=== PATIENT | male | born 1965 | race Caucasian/White ===

== ENCOUNTER 2017-07-26 10:39 | Inpatient (IN) | payer OTHER, BC ==
[2017-07-26 10:53] VITALS: BMI 24.3
--- NOTE | 2017-07-26 11:14 | PDOC ---
History of Present Illness - General Chief Complaint: Blood Transfusion Stated Complaint: TRANSFUSION Time Seen by Provider: 07/26/17 11:05 History Source: Patient, EMS, [facility] Records Exam Limitations: No Limitations - History of Present Illness Initial Comments: This is a 52 YOM with h/o ESRD (HD MWF without missed appointments lately), A- fib and heart valve replacement with mechanical valve, coumadin use, CAD, bilateral hip fractures and left knee injury several months ago who was BIBA after his SNF called for Hgb of 6 for blood transfusion. The patient himself states that nothing feels new today other than diffuse itchiness, but that he "always feels like crap" and has continued unchanged tiredness, swollen legs, and constipation. He denies any new rectal bleeding, nausea, vomiting, headache , dizziness, shakiness, confusion or difficulty thinking, muscle cramps, or other symptoms. Past History - Past Medical History Allergies/Adverse Reactions: Allergies Allergy/AdvReac Type Severity Reaction Status Date / Time cinacalcet HCl Allergy Verified 07/26/17 10:53 [From Sensipar] Home Medications: Ambulatory Orders Amiodarone HCl [Cordarone -] 200 mg PO DAILY 07/26/17 Aspirin [ASA -] 81 mg PO DAILY 07/26/17 Bacitracin - [Bacitracin Topical Ointment -] 1 applic TP DAILY 07/26/17 Bupropion HCl [Bupropion HCl Sr] 150 mg PO BID 07/26/17 Calcium Acetate 667 mg PO TID 07/26/17 Clonazepam [KlonoPIN] 0.5 mg PO HS 07/26/17 Docusate Sodium [Colace -] 100 mg PO DAILY 07/26/17 Ergocalciferol (Vitamin D2) [Vitamin D2] 50,000 unit PO WEEKLY 07/26/17 Famotidine [Pepcid] 20 mg PO DAILY 07/26/17 Gabapentin 125 mg PO TID 07/26/17 Methylnaltrexone [place] [Relistor] 12 mg SQ DAILY PRN 07/26/17 Metoprolol Succinate [Toprol Xl -] 25 mg PO DAILY 07/26/17 Midodrine HCl 5 mg PO TID 07/26/17 Morphine Sulfate 15 mg PO Q8H 07/26/17 Na Phos,M-B/Na Phos,Di-Ba [Enema Vsmrx-Nw-Jav] 133 ml RC DAILY PRN 07/26/17 Prednisone [Deltasone -] 5 mg PO DAILY 07/26/17 Warfarin Sodium [Coumadin] 1 mg PO DAILY 07/26/17 Cardiac Disorders: Yes (afib) COPD: No Psychiatric Problems: Yes - Suicide/Smoking/Psychosocial Hx Smoking History: Unknown if ever smoked Review of Systems - Review of Systems Constitutional: Yes: Malaise, Weakness. No: Chills, Fever, Unexplained wgt Loss HEENTM: No: Nose Congestion, Throat Pain Respiratory: No: Cough, Shortness of Breath, Hemoptysis Cardiac (ROS): No: Chest Pain, Palpitations ABD/GI: Yes: Constipated. No: Diarrhea, Nausea, Vomiting : No: Burning, Dysuria Musculoskeletal: No: Back Pain, Neck Pain Integumentary: Yes: Other (itching). No: Bruising, Rash Neurological: No: Headache, Numbness, Tingling, Weakness, Dizziness Endocrine: No: Unexplained Weight Gain, Unexplained Weight Loss *Physical Exam - Vital Signs Last Vital Signs Temp Pulse Resp BP Pulse Ox 98.2 F 77 18 124/74 99 07/26/17 10:50 07/26/17 10:50 07/26/17 10:50 07/26/17 10:50 07/26/17 10:50 - Physical Exam General Appearance: Yes: Other (very pale and chronically ill-appearing, bilateral legs splinted/immobilized with foam splint, appears and sounds a bit drowsy (states recently got morning dose of morphine), frequently scratching BUE and chest wall stating he feels itchy, ). 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 negative: Scleral Icterus (R), Scleral Icterus (L), Nasal Congestion Neck: positive: Trachea midline, Supple. negative: Tender, Rigid Respiratory/Chest: positive: Lungs Clear, Normal Breath Sounds, Paradoxal Breathing (3+ pitting edema BLE extending up to abdomen). negative: Respiratory Distress, Crackles, Rhonchi, Stridor, Wheezing Cardiovascular: positive: Regular Rhythm, Regular Rate, Edema, JVD (marked), Other (AV fistula to LUE with good bruit and thrill). negative: Murmur Gastrointestinal/Abdominal: positive: Normal Bowel Sounds, Soft, Organomegaly ( liver edge approximately 8 cm inferior to costal margin). negative: Tender, Pulsatile Mass, Guarding Musculoskeletal: positive: Normal Inspection. negative: Decreased Range of Motion, Vertebral Tenderness Extremity: positive: Normal Capillary Refill, Normal Inspection, Normal Range of Motion, Swelling. negative: Tender, Cyanosis Integumentary: positive: Normal Color, Dry, Warm, Other (scattered mild excoriations apparently from itching). negative: Erythema, Rash, Bruising Neurologic: positive: catering server II-XII NML intact, Fully Oriented, Alert, Normal Mood/ Affect, Normal Response, Motor Strength 5/5 Heart Score/ECG Review #1 ECG reviewed & interpreted by me at: 11:50 NSR, rate of 75, RBBB, anterior t-wave inversions ED Treatment Course - LABORATORY CBC & Chemistry Diagram: 07/28/17 17:10 07/28/17 05:42 Medical Decision Making - Medical Decision Making 52 YOM with h/o ESRD on HD MWF without missed appointments lately, on coumadin for A-fib and mech. valve. BIBA from SNF for Hgb of 6 in setting of multiple transfusions with last one "very recently." Has been seen at [facility] in the past. On exam vitals wnl appears a bit drowsy and very pale, actively scratching w/ excoriations. Marked JVD, 3+ pitting edema BLE, AV fistula LUE with good bruit and thrill, hepatomegaly. The patient needs dialysis and transfusion, requires admission at least to observation. 07/26/17 13:15 Pt's labs result with Hgb 6.5, INR 1.89, Called Bethany Hurtado's office; rep states Dr. Lagunas is on for Dr. Hurtado. Message sent from rep to Dr. Lagunas. 07/26/17 13:34 Have spoken with Mayda Lagunas, patient admitted to IP Med/Surg. Spoke with Dr. Potts who recommends transfusing now and HD concurrently He comes to see the patient in the ED. Packed RBCs ordered and patient is transferred to inpatient with emergent HD. *DC/Admit/Observation/Transfer Diagnosis at time of Disposition: End stage kidney disease Anemia Qualifiers: Anemia type: unspecified type Qualified Code(s): D64.9 - Anemia, unspecified - Discharge Dispostion Condition at time of disposition: Guarded Admit: Yes - Referrals - Patient Instructions - Post Discharge Activity
[2017-07-26] MEDS ORDERED: PROCHLORPERAZINE INJECTION 10 MG/2 ML VIAL ONE (11:51)
[2017-07-26 12:05] LABS: BASOPHIL 0.7 % (0-2.0); EOSINOPHIL 8.5 % (0-4.5); MCH 31.5 pg (25.7-33.7); MCHC 32.1 g/dl (32.0-35.9); MEAN CELL VOLUME 98.1 fl (80-96); MEAN PLT VOLUME 7.3 fl (7.5-11.1); NEUTROPHILS 67.4 % (42.8-82.8); PLATELET COUNT 383 K/MM3 (134-434); RDW 18.7 % (11.9-15.9); WHITE BLOOD COUNT 8.8 K/mm3 (4.0-10.0)
[2017-07-26 12:19] LABS: ALBUMIN 2.3 g/dl (3.4-5.0); ALK PHOS 288 U/L (45-117); ANION GAP 8 (8-16); BILIRUBIN,TOTAL 0.7 mg/dL (0.2-1.0); CALCIUM 8.4 mg/dL (8.5-10.1); CO2 32 mmol/L (21-32); CREATININE 5.6 mg/dL (0.7-1.3); GLUCOSE,RANDOM 95 mg/dL (74-106); MAGNESIUM 2.2 mg/dL (1.8-2.4); PHOSPHOROUS 4.6 mg/dL (2.5-4.9); SGOT/AST 24 U/L (15-37); SGPT/ALT 10 U/L (12-78); TOT PROT 5.9 g/dl (6.4-8.2)
--- NOTE | 2017-07-26 12:29 | PDOC ---
Attending Attestation - Resident Resident Name: LinYuridia - ED Attending Attestation I have performed the following: I have examined & evaluated the patient, The case was reviewed & discussed with the resident, I agree w/resident's findings & plan - HPI HPI: 07/26/17 12:27 Patient with history of end-stage renal disease on hemodialysis with chronic edema, last dialysis was on Saturday. Patient presents from the longterm with recent labs showing a hemoglobin of 6.0 with request for evaluation for possible transfusion. Patient denies shortness of breath at rest. He recently had hip surgery. - Physicial Exam PE: 07/26/17 12:27 Lungs are clear bilaterally. Heart is regular rhythm with mechanical heart valve sounds and a systolic murmur. Abdomen is softly distended. There is significant edema in the bilateral flanks. There is significant edema in the thighs. - Medical Decision Making 07/26/17 12:28 Patient presents with anemia by history, repeat labs are pending. He also has signs of volume overload with right sided heart failure and leg as well as flank and back edema. Even his end-stage renal disease and no urine output, he will require dialysis for transfusion. Plan is to reconfirm his low hemoglobin , and then to admit him for hemodialysis with transfusion during dialysis.
[2017-07-26 12:54] LABS: INR 1.89 (0.82-1.09); PROTHROMBIN TIME (PATIENT) 21.4 SEC (9.98-11.88)
[2017-07-26 12:57] LABS: ACTIVATED PTT 38.6 SECONDS (26.9-34.4)
--- NOTE | 2017-07-26 14:41 | CON.NEP ---
Consult Consult Specialty:: nephrology Reason for Consultation:: ESRD/HD - History of Present Illness Chief Complaint: weakness/lethargy History of Present Illness: The pt is a 52 year old male BIBA from [facility] with a PMH of ESRD, on hemodialysis m -w-f, renal cell carcinoma, right kidney transplant, A.Fib, heart valves replacement, hip surgery on left side 3 weeks ago that was caused by injury/fall - [facility]. We were evaluate the pt who was found to have anemia with Hgb of 6.5 and HD. He is feeling "sleepy" today and is complaining of left hip pain that is present since his surgery. He denies chest pain, SOB, palpitations. He denies abdominal pain, bleeding, headache, vision problems, melena. The pt is a poor historian. - History Source History Provided By: Patient Limitations to Obtaining History: Poor Historian - Past Medical History Cardio/Vascular: Yes: AFIB, CAD, HTN, Hyperlipdemia Renal/: Yes: Hemodialysis - Past Surgical History Past Surgical History: Yes: AV Fistula/Graft, Kidney Transplant, Valve Replacement - Alcohol/Substance Use Hx Alcohol Use: No - Smoking History Smoking history: Former smoker Have you smoked in the past 12 months: No - Social History History of Recent Travel: No Home Medications - Allergies Allergies/Adverse Reactions: Allergies Allergy/AdvReac Type Severity Reaction Status Date / Time cinacalcet HCl Allergy Verified 07/26/17 10:53 [From Sensipar] - Home Medications Home Medications: Ambulatory Orders Amiodarone HCl [Cordarone -] 200 mg PO DAILY 07/26/17 Aspirin [ASA -] 81 mg PO DAILY 07/26/17 Bacitracin - [Bacitracin Topical Ointment -] 1 applic TP DAILY 07/26/17 Bupropion HCl [Bupropion HCl Sr] 150 mg PO BID 07/26/17 Calcium Acetate 667 mg PO TID 07/26/17 Clonazepam [KlonoPIN] 0.5 mg PO HS 07/26/17 Docusate Sodium [Colace -] 100 mg PO DAILY 07/26/17 Ergocalciferol (Vitamin D2) [Vitamin D2] 50,000 unit PO WEEKLY 07/26/17 Famotidine [Pepcid] 20 mg PO DAILY 07/26/17 Gabapentin 125 mg PO TID 07/26/17 Methylnaltrexone [place] [Relistor] 12 mg SQ DAILY PRN 07/26/17 Metoprolol Succinate [Toprol Xl -] 25 mg PO DAILY 07/26/17 Midodrine HCl 5 mg PO TID 07/26/17 Morphine Sulfate 15 mg PO Q8H 07/26/17 Na Phos,M-B/Na Phos,Di-Ba [Enema Zycrt-Lq-Nyg] 133 ml RC DAILY PRN 07/26/17 Prednisone [Deltasone -] 5 mg PO DAILY 07/26/17 Warfarin Sodium [Coumadin] 1 mg PO DAILY 07/26/17 Family Disease History - Family Disease History Family History: Unable to Obtain Review of Systems - Review of Systems Constitutional: reports: Lethargy, Weakness Eyes: reports: No Symptoms HENT: reports: No Symptoms Neck: reports: No Symptoms Cardiovascular: reports: No Symptoms Respiratory: reports: No Symptoms Gastrointestinal: reports: No Symptoms Genitourinary: reports: No Symptoms Musculoskeletal: reports: Joint Pain (left hip) Neurological: reports: No Symptoms Endocrine: reports: No Symptoms Hematology/Lymphatic: reports: No Symptoms, Other Psychiatric: reports: No Symptoms Nephrology Consult - Height Height: 5 ft 8 in - Weight Weight: 160 lb - BMI Body Mass Index (BMI): 24.3 - Lab Results CBC,BMP: CBC, BMP 07/26/17 11:30 07/26/17 11:30 Anion Gap: Anion Gap Anion Gap 8 (8-16) 07/26/17 11:30 - Physical Examination Vital Signs: Vital Signs Temperature 98.2 F 07/26/17 10:50 Pulse Rate 77 07/26/17 10:50 Respiratory Rate 18 07/26/17 10:50 Blood Pressure 124/74 07/26/17 10:50 O2 Sat by Pulse Oximetry (%) 99 07/26/17 10:50 Constitutional: Yes: Well Nourished, No Distress, Calm Eyes: Yes: WNL, Conjunctiva Clear, EOM Intact HENT: Yes: WNL, Atraumatic, Normocephalic Neck: Yes: WNL, Supple, Trachea Midline Cardiovascular: Yes: WNL, Regular Rate and Rhythm. No: JVD, Gallop, Rub Respiratory: Yes: WNL, Regular, CTA Bilaterally Gastrointestinal: Yes: WNL, Normal Bowel Sounds, Soft, Distention, Palpable Mass (pubic area, kidney transplant). No: Abdomen, Obese, Tenderness, Tenderness, Rebound Renal/: Yes: WNL. No: Bladder Distention, CVA Tenderness - Left, CVA Tenderness - Right Access for Hemodialysis: AV Fistula (left upper extremity) Musculoskeletal: Yes: Other (joint pain in left hip and externally rotates lower extremities, able to move toes bilaterally, refused to check ROM) Extremities: Yes: External Rotation. No: Cyanosis Edema: LUE: Trace, RUE: Trace, LLE: 1+, RLE: 1+ Peripheral Pulses WNL: Yes Neurological: Yes: WNL, Alert, Oriented, Lethargy. No: Confusion, Dysarthria, Facial Droop Psychiatric: Yes: WNL, Alert, Oriented Problem List - Problems (1) A-fib Code(s): I48.91 - UNSPECIFIED ATRIAL FIBRILLATION (2) Heart valve replaced Code(s): Z95.2 - PRESENCE OF PROSTHETIC HEART VALVE (3) Renal transplant, status post Code(s): Z94.0 - KIDNEY TRANSPLANT STATUS (4) Anemia Code(s): D64.9 - ANEMIA, UNSPECIFIED (5) End stage kidney disease Code(s): N18.6 - END STAGE RENAL DISEASE Assessment/Plan 52 year old man with multiple comorbidities, on HD , found to have anemia. 1ESRD on HD 2Anemia 3A.Fib 4renal transplant 5HTN 6hyperlipidemia 7hip replacement 8renal cell carcinoma 9heart valve replacement 1the pt will obtain HD today, 3.5 hrs, will monitor his CMP tomorrow 2will transfuse the pt while getting HD, will obtain iron studies and monitor CBC. We also ordered CT abdomen/pevis/ head, FOBT to r/o bleeding since he is on Eliquis 3A.Fib-cont med 4not working 5cont meds 6cont meds 7pain management
--- NOTE | 2017-07-26 14:55 | PN ---
Teaching Attending Note Name of Resident: Sydnee Calvillo (Nephrology) ATTENDING PHYSICIAN STATEMENT I saw and evaluated the patient. I reviewed the resident's note and discussed the case with the resident. I agree with the resident's findings and plan as documented. Nephrology Consult Pt is a 52 year old male with pmhx of ESRD on HD MWF, a-fib, and is s/p hip replacement. He was sent in from the [facility] for a HG of 6. He denies chest pain or shortness of breath. He does complain of increase edema. He is due for HD today. He denies blood in the stool. pmhx esrd a fib pshx hip repair avf social hx neg ros hip pain family hx non contrib allergies cinacalcet Current Medications Generic Name Dose Route Start Last Admin Trade Name Freq PRN Reason Stop Dose Admin Epoetin Rudolph 6,000 units 07/26/17 14:01 Epogen - IVPUSH 07/26/17 14:02 ONCE ONE Last Vital Signs Temp Pulse Resp BP Pulse Ox 98.2 F 77 18 124/74 99 07/26/17 10:50 07/26/17 10:50 07/26/17 10:50 07/26/17 10:50 07/26/17 10:50 Laboratory Tests 07/26/17 07/26/17 07/26/17 11:30 11:30 11:30 WBC 8.8 Hgb 6.5 L* Plt Count 383 PT with INR 21.40 H INR 1.89 H PTT (Actin FS) 38.6 H Sodium 138 Potassium 4.0 Chloride 98 Carbon Dioxide 32 Anion Gap 8 BUN 30 H Creatinine 5.6 H cxr pleural effusion with congestion cardio s1s2 pulm scattered rhonchi GI soft, non tender ext edema and hip pain neuro awake ext left arm av fistula with thrill and bruit Impression 1. ESRD 2. anemia 3. a-fib 4. valvular heart disease 5. s/p hip replacement 6. hx kidney transplant 7. hx renal cell carcinoma 8. pleural effusion Plan - will arrange for HD today - will transfuse PRBC on HD - recommend checking ct abd/pelvis to look for bleed as pt is on coumadin - will give epogen on HD - monitr blood pressure - resume NH meds - will need admission to hospital - discussed with ER team - will need anemia workup - check iron studies - check stool for occult blood - check post HD hg - renal diet Dr Potts
[2017-07-26] MEDS ORDERED: EPOETIN ALFA 3,000 UNIT/1 ML ML IVPUSH ONE (17:00)
[2017-07-26 19:57] LABS: MCH 32.1 pg (25.7-33.7); MCHC 34.2 g/dl (32.0-35.9); MEAN CELL VOLUME 93.9 fl (80-96); MEAN PLT VOLUME 7.3 fl (7.5-11.1); PLATELET COUNT 369 K/MM3 (134-434); RDW 18.7 % (11.9-15.9); WHITE BLOOD COUNT 9.8 K/mm3 (4.0-10.0)
[2017-07-26 21:36] LABS: FERRITIN 1117.307 ng/ml (16.4-293.9)
[2017-07-26] MEDS ORDERED: MIDODRINE HCL 5 MG TABLET PO SCH (22:00)
[2017-07-26] MEDS ORDERED: buPROPion HCL 100 MG TABLET PO SCH (22:00)
[2017-07-26] MEDS: CALCIUM ACETATE 667 MG CAPSULE (FP) PO SCH (22:22)
[2017-07-26] MEDS: GABAPENTIN 250 MG/5 ML ORAL SOLUTION, 470 ML BOTTLE PO SCH (22:22)
[2017-07-26] MEDS: clonazePAM 0.5 MG TABLET PO SCH (22:22)
[2017-07-27] MEDS: morphine SULFATE IMMEDIATE RELEASE 30 MG TAB PO PRN ×2 (03:52→11:57)
[2017-07-27 04:32] LABS: MCH 31.6 pg (25.7-33.7); MCHC 33.7 g/dl (32.0-35.9); MEAN CELL VOLUME 93.8 fl (80-96); MEAN PLT VOLUME 7.5 fl (7.5-11.1); PLATELET COUNT 378 K/MM3 (134-434); RDW 19.3 % (11.9-15.9); WHITE BLOOD COUNT 8.8 K/mm3 (4.0-10.0)
[2017-07-27] MEDS: GABAPENTIN 250 MG/5 ML ORAL SOLUTION, 470 ML BOTTLE PO SCH ×4 (05:52→21:35)
[2017-07-27] MEDS: CALCIUM ACETATE 667 MG CAPSULE (FP) PO SCH ×3 (05:52→21:33)
[2017-07-27 07:24] LABS: MCH 31.6 pg (25.7-33.7); MCHC 33.8 g/dl (32.0-35.9); MEAN CELL VOLUME 93.4 fl (80-96); MEAN PLT VOLUME 7.3 fl (7.5-11.1); PLATELET COUNT 382 K/MM3 (134-434); WHITE BLOOD COUNT 9.1 K/mm3 (4.0-10.0)
[2017-07-27 09:06] LABS: ALBUMIN 2.2 g/dl (3.4-5.0); ALK PHOS 269 U/L (45-117); ANION GAP 10 (8-16); BILIRUBIN,TOTAL 1.2 mg/dL (0.2-1.0); CALCIUM 8.3 mg/dL (8.5-10.1); CO2 30 mmol/L (21-32); CREATININE 3.8 mg/dL (0.7-1.3); GLUCOSE,RANDOM 73 mg/dL (74-106); SGOT/AST 21 U/L (15-37); SGPT/ALT 10 U/L (12-78); TOT PROT 5.9 g/dl (6.4-8.2)
[2017-07-27] MEDS ORDERED: PT OWN MED DRAWER 7, Y5N ONE ×5 (09:30→21:42)
[2017-07-27] MEDS: DOCUSATE SODIUM 100 MG CAPSULE (FP) PO SCH (09:34)
[2017-07-27] MEDS: METOPROLOL SUCCINATE 25 MG TAB.SR.24H (FP) PO SCH (09:34)
[2017-07-27] MEDS: predniSONE 5 MG TABLET (UD) PO SCH (09:34)
[2017-07-27] MEDS: MIDODRINE HCL 5 MG TABLET PO SCH ×3 (09:35→17:24)
[2017-07-27] MEDS: AMIODARONE HCL 200 MG TABLET (FP) PO SCH (11:54)
--- NOTE | 2017-07-27 11:57 | PN ---
Progress Note, Physician History of Present Illness: Pt seen and examined at bedside. He is awake and alert. He complains of hip pain. He tolerated HD yesterday. He required an additional unit of blood after dialysis. - Current Medication List Current Medications: Active Medications Amiodarone HCl (Cordarone -) 200 mg PO DAILY [facility] Bupropion HCl (Wellbutrin Xl -) 300 mg PO DAILY [facility] Last Admin: 07/27/17 09:35 Dose: 300 mg Calcium Acetate (Phoslo -) 667 mg PO TID [facility] Last Admin: 07/27/17 05:52 Dose: 667 mg Clonazepam (Klonopin -) 0.5 mg PO HS [facility] Last Admin: 07/26/17 22:22 Dose: 0.5 mg Docusate Sodium (Colace -) 100 mg PO DAILY [facility] Last Admin: 07/27/17 09:34 Dose: 100 mg Ergocalciferol (Drisdol -) 50,000 unit PO Th@1000 [facility] Gabapentin (Neurontin Oral Liquid -) 125 mg PO TID [facility] Last Admin: 07/27/17 05:53 Dose: Not Given Metoprolol Succinate (Toprol Xl -) 25 mg PO DAILY [facility] Last Admin: 07/27/17 09:34 Dose: 25 mg Midodrine (Proamatine -) 5 mg PO TID-MID [facility] Last Admin: 07/27/17 09:35 Dose: 5 mg Morphine Sulfate (Msir -) 15 mg PO Q8H PRN PRN Reason: MODERATE PAIN Last Admin: 07/27/17 03:52 Dose: 15 mg Prednisone (Deltasone -) 5 mg PO DAILY [facility] Last Admin: 07/27/17 09:34 Dose: 5 mg - Objective Vital Signs: Vital Signs Temperature 98.8 F 07/27/17 05:47 Pulse Rate 81 07/27/17 05:47 Respiratory Rate 20 07/27/17 05:47 Blood Pressure 106/60 07/27/17 05:47 O2 Sat by Pulse Oximetry (%) 95 07/26/17 22:33 Constitutional: Yes: Calm Eyes: Yes: Conjunctiva Clear HENT: Yes: Atraumatic Neck: Yes: Supple Cardiovascular: Yes: S1, S2 Respiratory: Yes: CTA Bilaterally Gastrointestinal: Yes: Normal Bowel Sounds, Soft Genitourinary: Yes: WNL Extremities: Yes: Other (hip pain) Edema: Yes Edema: LLE: 2+, RLE: 2+ Neurological: Yes: Oriented Psychiatric: Yes: Oriented Labs: CBC, BMP 07/27/17 06:00 07/27/17 06:00 INR, PTT INR 1.89 (0.82-1.09) H 07/26/17 11:30 - ....Imaging Cat Scan: Report Reviewed Problem List - Problems (1) A-fib Code(s): I48.91 - UNSPECIFIED ATRIAL FIBRILLATION (2) Anemia Code(s): D64.9 - ANEMIA, UNSPECIFIED (3) End stage kidney disease Code(s): N18.6 - END STAGE RENAL DISEASE (4) Heart valve replaced Code(s): Z95.2 - PRESENCE OF PROSTHETIC HEART VALVE (5) Renal transplant, status post Code(s): Z94.0 - KIDNEY TRANSPLANT STATUS Assessment/Plan Current Medications Generic Name Dose Route Start Last Admin Trade Name Freq PRN Reason Stop Dose Admin Amiodarone HCl 200 mg 07/27/17 10:00 Cordarone - PO DAILY [facility] Bupropion HCl 300 mg 07/27/17 10:00 07/27/17 09:35 Wellbutrin Xl - PO 300 mg DAILY [facility] Administration Calcium Acetate 667 mg 07/26/17 22:00 07/27/17 05:52 Phoslo - PO 667 mg TID [facility] Administration Clonazepam 0.5 mg 07/26/17 22:00 07/26/17 22:22 Klonopin - PO 0.5 mg HS [facility] Administration Docusate Sodium 100 mg 07/27/17 10:00 07/27/17 09:34 Colace - PO 100 mg DAILY [facility] Administration Ergocalciferol 50,000 unit 08/01/17 10:00 Drisdol - PO Th@1000 [facility] Gabapentin 125 mg 07/26/17 22:00 07/27/17 05:53 Neurontin Oral Liquid - PO Not Given TID [facility] Metoprolol Succinate 25 mg 07/27/17 10:00 07/27/17 09:34 Toprol Xl - PO 25 mg DAILY [facility] Administration Midodrine 5 mg 07/27/17 10:00 07/27/17 09:35 Proamatine - PO 5 mg TID-MID [facility] Administration Morphine Sulfate 15 mg 07/26/17 18:51 07/27/17 03:52 Msir - PO 15 mg Q8H PRN Administration MODERATE PAIN Prednisone 5 mg 07/27/17 10:00 07/27/17 09:34 Deltasone - PO 5 mg DAILY [facility] Administration Impression 1. ESRD 2. anemia 3. a-fib 4. valvular heart disease 5. s/p hip replacement 6. hx kidney transplant 7. hx renal cell carcinoma 8. pleural effusion 9. left gluteus hematoma Plan - pt tolerated HD yesterday - monitor hg - surgery evaluation for hematoma - monitor inr - next HD on Saturday - discussed with attending - discussed with nursing staff - pt had his surgery done at [place] Dr Potts
[2017-07-27 12:13] LABS: INR 2.58 (0.82-1.09); PROTHROMBIN TIME (PATIENT) 29.2 SEC (9.98-11.88)
[2017-07-27] MEDS ORDERED: POLYETHYLENE GLYCOL 3350 119 GM BTL PO PRN (12:40)
[2017-07-27] MEDS ORDERED: Methylnaltrexone Bromide 12 MG/0.6 ML KIT SQ PRN (13:28)
--- NOTE | 2017-07-27 13:38 | HP ---
Admitting History and Physical - Primary Care Physician PCP: Bethany Hurtado - Admission Chief Complaint: ANEMIA History of Present Illness: 51 year old male admitted from [facility] with symptomatic anemia. patient have past medical history of /MR/TR- s/p mechanical AVR, TV repair, history of AFIB- - s/p left MAZE 2015, horse shoe kidney , ESRD, RENAL TRANSPLANT, hyperparathyroidism, osteoperosis. patient underwent left hemiarthroplasty of left femoral neck fracture 05/07/2017 and right hemiarthroplasty for rightfemoral neck fracture-05/19/17t [facility] . patient later admitted in [facility] for dislocated right hip and left hip prince prosthetic fracture . he underwent surgery for right hip 06/11 then later or left hip - left ORIF. patient was sent from dialysis due to low HB Received total [address] abdomen /pelvis noted- left gluteal daniel hematoma coumadin on hold cardiology and ortho consult pending CT left hip and femur pending today INR-2.5 History Source: Medical Record Limitations to Obtaining History: Poor Historian - Past Medical History Cardiovascular: Yes: AFIB, CAD, HTN, Hyperlipdemia, Other (AVR/MVR/TV REPAIR, AFIB-left maze-2015, s/p ablation) Renal/: Yes: Hemodialysis, Other (horse shoe kidney, renal transplant) Heme/Onc: Yes: Anemia Rheumatology: Yes: Other (osteoperosis, hyperparathyroidism) - Past Surgical History Past Surgical History: Yes: AV Fistula/Graft, Kidney Transplant, Valve Replacement Additional Past Surgical History: left hip hemiarthroplasty-05/07/2017, left hip ORIF- 07/04/2017 Right hip hemiarthroplasty-05/19/17, right hip ORIF-06/11/17 AVR, MVR, TV repair, renal transplant, left maze-2015 for afib - Smoking History Smoking history: Former smoker Have you smoked in the past 12 months: No - Alcohol/Substance Use Hx Alcohol Use: No - Social History History of Recent Travel: No Home Medications - Allergies Allergies/Adverse Reactions: Allergies Allergy/AdvReac Type Severity Reaction Status Date / Time cinacalcet HCl Allergy Verified 07/26/17 10:53 [From Sensipar] - Home Medications Home Medications: Ambulatory Orders Amiodarone HCl [Cordarone -] 200 mg PO DAILY 07/26/17 Aspirin [ASA -] 81 mg PO DAILY 07/26/17 Bacitracin - [Bacitracin Topical Ointment -] 1 applic TP DAILY 07/26/17 Bupropion HCl [Bupropion HCl Sr] 150 mg PO BID 07/26/17 Calcium Acetate 667 mg PO TID 07/26/17 Clonazepam [KlonoPIN] 0.5 mg PO HS 07/26/17 Docusate Sodium [Colace -] 100 mg PO DAILY 07/26/17 Ergocalciferol (Vitamin D2) [Vitamin D2] 50,000 unit PO WEEKLY 07/26/17 Famotidine [Pepcid] 20 mg PO DAILY 07/26/17 Gabapentin 125 mg PO TID 07/26/17 Methylnaltrexone [place] [Relistor] 12 mg SQ DAILY PRN 07/26/17 Metoprolol Succinate [Toprol Xl -] 25 mg PO DAILY 07/26/17 Midodrine HCl 5 mg PO TID 07/26/17 Morphine Sulfate 15 mg PO Q8H 07/26/17 Na Phos,M-B/Na Phos,Di-Ba [Enema Etnzu-Nj-Qti] 133 ml RC DAILY PRN 07/26/17 Prednisone [Deltasone -] 5 mg PO DAILY 07/26/17 Warfarin Sodium [Coumadin] 1 mg PO DAILY 07/26/17 Review of Systems - Review of Systems Cardiovascular: reports: Edema. denies: Chest Pain, Palpitations, Shortness of Breath Respiratory: reports: SOB on Exertion. denies: SOB Gastrointestinal: reports: Constipation. denies: Diarrhea, Rectal Bleeding Musculoskeletal: reports: Extremity Pain (left hip pain) Physical Examination Vital Signs: Vital Signs Temperature 98.5 F 07/27/17 09:00 Pulse Rate 75 07/27/17 09:00 Respiratory Rate 20 07/27/17 09:00 Blood Pressure 122/67 07/27/17 09:00 O2 Sat by Pulse Oximetry (%) 95 07/27/17 09:00 Constitutional: Yes: No Distress, Anxious, Pallor Neck: Yes: Supple Cardiovascular: Yes: Regular Rate and Rhythm, Murmur, S1, S2, Other (metallic click) Respiratory: Yes: CTA Bilaterally, Diminished. No: Rales, Rhonchi Gastrointestinal: Yes: Normal Bowel Sounds, Soft. No: Distention, Tenderness Renal/: Yes: Other (left arm fistula) Musculoskeletal: Yes: Other (LEFT HIP /LEFT LEG- SWELLING) Edema: Yes Edema: LLE: 3+ (Externally rotated), RLE: 2+ Wound/Incision: Yes: Other (dressing-left hip) Neurological: Yes: Alert, Oriented Psychiatric: Yes: Other (anxious) Labs: CBC, BMP 07/27/17 06:00 07/27/17 06:00 Imaging - Results Chest X-ray: Report Reviewed X-ray: Report Reviewed Cat Scan: Report Reviewed Problem List - Problems (1) Hematoma of hip Code(s): S70.00XA - CONTUSION OF UNSPECIFIED HIP, INITIAL ENCOUNTER Qualifiers: Encounter type: initial encounter Laterality: left Qualified Code(s): S70.02XA - Contusion of left hip, initial encounter (2) History of fracture of left hip Code(s): Z87.81 - PERSONAL HISTORY OF (HEALED) TRAUMATIC FRACTURE (3) A-fib Code(s): I48.91 - UNSPECIFIED ATRIAL FIBRILLATION Qualifiers: Atrial fibrillation type: paroxysmal Qualified Code(s): I48.0 - Paroxysmal atrial fibrillation (4) Anemia Code(s): D64.9 - ANEMIA, UNSPECIFIED Qualifiers: (5) End stage kidney disease Code(s): N18.6 - END STAGE RENAL DISEASE (6) Heart valve replaced Code(s): Z95.2 - PRESENCE OF PROSTHETIC HEART VALVE (7) Renal transplant, status post Code(s): Z94.0 - KIDNEY TRANSPLANT STATUS (8) Pathological fracture due to secondary osteoporosis Code(s): M80.80XA - OTH OSTEOPOR W CURRENT PATH FRACTURE, UNSP SITE, INIT (9) Hyperparathyroidism Code(s): E21.3 - HYPERPARATHYROIDISM, UNSPECIFIED (10) Hyperparathyroidism due to ESRD on dialysis Code(s): E21.3 - HYPERPARATHYROIDISM, UNSPECIFIED; N18.6 - END STAGE RENAL DISEASE; Z99.2 - DEPENDENCE ON RENAL DIALYSIS Assessment/Plan ANEMIA - s/p 3 units of PRBC -? acute on chronic blood loss -left gluteal daniel hematoma -coumadin on hold -asa on hold -CT left hip and femur pending -ortho and cardiac evaluation pending -h/h currently stable -monitor cbc daily -stool OB -S/P Multiple mechanical valve replacement -currently Coumadin on hold -INR today 2.58 -cardiac evaluation pending -transfer to telemetry -echocardiogram afib- rate controlled continue with medications monitor in telemetry s/p left and right hip fractures s/p recent left hip ORIF 07/12- S/P prince prosthetic fracture- - orthopedic evaluation pending ESRD - S/P HD yesterday- -- - dr gonzalez following Osteoporosis secondary hyperparathyroidism DVT PPX- SCD Venous doppler done in [facility] negative for DVT= LEFT LEG transfer to telemetry spoke with family at bedside
--- NOTE | 2017-07-27 16:18 | PN ---
Progress Note (short form) - Note Progress Note: Pt examined along side ROSCOE Lyons Agree with findings and plan d/w family at bedside Tele transfer as pt is off Coumadin, has multiple mechanical valve replacements
--- NOTE | 2017-07-27 18:48 | CONSULT ---
Consult - text type - Consultation Consultation Note: FULL CONSULT DICTATED IMP: ? FX RIGHT LE S/P SURGERY AT [facility] PLAN: NEW XRAYS ORDERED
[2017-07-27 19:22] LABS: MCH 31.6 pg (25.7-33.7); MCHC 33.7 g/dl (32.0-35.9); MEAN CELL VOLUME 93.8 fl (80-96); MEAN PLT VOLUME 7.3 fl (7.5-11.1); PLATELET COUNT 380 K/MM3 (134-434); RDW 19.7 % (11.9-15.9); WHITE BLOOD COUNT 9.4 K/mm3 (4.0-10.0)
[2017-07-27] MEDS: clonazePAM 0.5 MG TABLET PO SCH (21:33)
[2017-07-27] MEDS: NYSTATIN 100,000 UNIT/GM TOPICAL CREAM 15 GM TUBE TP SCH (22:00)
[2017-07-28] MEDS: CALCIUM ACETATE 667 MG CAPSULE (FP) PO SCH ×3 (05:41→21:14)
[2017-07-28] MEDS: GABAPENTIN 250 MG/5 ML ORAL SOLUTION, 470 ML BOTTLE PO SCH ×3 (05:41→21:14)
[2017-07-28 07:18] LABS: MCH 31.5 pg (25.7-33.7); MCHC 33.5 g/dl (32.0-35.9); MEAN PLT VOLUME 7.1 fl (7.5-11.1); PLATELET COUNT 399 K/MM3 (134-434); RDW 19.5 % (11.9-15.9); WHITE BLOOD COUNT 9.8 K/mm3 (4.0-10.0)
[2017-07-28 07:42] LABS: INR 2.25 (0.82-1.09); PROTHROMBIN TIME (PATIENT) 25.4 SEC (9.98-11.88)
[2017-07-28 07:57] LABS: ANION GAP 10 (8-16); CALCIUM 8.2 mg/dL (8.5-10.1); CO2 29 mmol/L (21-32); CREATININE 3.7 mg/dL (0.7-1.3); GLUCOSE,RANDOM 75 mg/dL (74-106)
--- NOTE | 2017-07-28 08:11 | CONS ---
DATE OF CONSULTATION: 07/27/2017 The patient is a 52-year-old male admitted from the [facility] with symptomatic anemia. The patient has multiple mechanical valves of his heart and end-stage renal disease with a renal transplantation and multiple hip fractures and hip procedures. He had multiple operations on both his hips recently and is now complaining of pain in his left hip with inability to walk. The patient has not been ambulatory for quite some time. PHYSICAL EXAMINATION: His left lower extremity is externally rotated. He has staple line on his distal femur and proximal femur. No erythema, no drainage, but marked increased pain with internal and external rotation of the hip. Calf is soft, nontender. Good motion in knee, ankle, and toes. His right hip moves without any pain. Calf is soft, nontender. Well-healed incisions laterally on the hip. The patient has a CT scan, which is very difficult to evaluate. He does have a large hematoma in his left gluteal region, which is probably secondary to his previous surgeries. 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 There are no hip components in there. There appears to be an iron navarro in his left femur with marked fragmentations. Difficult to make out what exactly was done in these hips. No plain radiographs are available for my evaluation. IMPRESSION: Status post some surgery of his left hip. I would need to see regular x-rays to further evaluate the appropriate treatment and what was done. The patient may need to be transferred back to [place], where they did this procedure on his left hip. Currently, there is no orthopedic emergency, though I will wait to see the hip x-rays prior to making further evaluation and recommendations. CORBY BROWN M.D. [id number]
--- NOTE | 2017-07-28 09:21 | PN ---
Progress Note, Physician Chief Complaint: constipated Has pain in left hip when moved spoke with Business Supervisor and Surgeon CTA hip /pelvis ordered- done - Current Medication List Current Medications: Active Medications Amiodarone HCl (Cordarone -) 200 mg PO DAILY [facility] Last Admin: 07/27/17 11:54 Dose: 200 mg Bupropion HCl (Wellbutrin Xl -) 300 mg PO DAILY [facility] Last Admin: 07/27/17 09:35 Dose: 300 mg Calcium Acetate (Phoslo -) 667 mg PO TID [facility] Last Admin: 07/28/17 05:41 Dose: 667 mg Clonazepam (Klonopin -) 0.5 mg PO HS [facility] Last Admin: 07/27/17 21:33 Dose: 0.5 mg Docusate Sodium (Colace -) 100 mg PO DAILY [facility] Last Admin: 07/27/17 09:34 Dose: 100 mg Ergocalciferol (Drisdol -) 50,000 unit PO Th@1000 [facility] Gabapentin (Neurontin Oral Liquid -) 125 mg PO TID [facility] Last Admin: 07/28/17 05:41 Dose: Not Given Methylnaltrexone [place] (Relistor -) 6 mg SQ DAILY PRN PRN Reason: constipation Metoprolol Succinate (Toprol Xl -) 25 mg PO DAILY [facility] Last Admin: 07/27/17 09:34 Dose: 25 mg Midodrine (Proamatine -) 5 mg PO TID-MID [facility] Last Admin: 07/27/17 17:24 Dose: 5 mg Morphine Sulfate (Msir -) 15 mg PO Q6H PRN PRN Reason: MODERATE PAIN Nystatin (Mycostatin Cream -) 1 applic TP BID [facility] Last Admin: 07/27/17 22:00 Dose: Not Given Polyethylene Glycol (Miralax (For Daily Use) -) 17 gm PO DAILY PRN PRN Reason: CONSTIPATION Prednisone (Deltasone -) 5 mg PO DAILY [facility] Last Admin: 07/27/17 09:34 Dose: 5 mg - Objective Vital Signs: Vital Signs Temperature 98.1 F 07/28/17 05:29 Pulse Rate 63 07/28/17 05:29 Respiratory Rate 20 07/28/17 05:29 Blood Pressure 115/76 07/28/17 05:29 O2 Sat by Pulse Oximetry (%) 95 07/27/17 21:00 Constitutional: Yes: No Distress, Anxious, Mild Distress Cardiovascular: Yes: Regular Rate and Rhythm, Murmur, Other (systolic click +) Respiratory: Yes: CTA Bilaterally Gastrointestinal: Yes: Normal Bowel Sounds, Soft, Abdomen, Obese. No: Distention Extremities: Yes: External Rotation (left leg+, swollen left hip, tender,not warm) Edema: Yes Labs: CBC, BMP 07/28/17 05:42 07/28/17 05:42 INR, PTT INR 2.25 (0.82-1.09) H 07/28/17 05:42 Problem List - Problems (1) A-fib Code(s): I48.91 - UNSPECIFIED ATRIAL FIBRILLATION Qualifiers: Atrial fibrillation type: paroxysmal Qualified Code(s): I48.0 - Paroxysmal atrial fibrillation (2) Anemia Code(s): D64.9 - ANEMIA, UNSPECIFIED Qualifiers: Iron deficiency anemia type: chronic blood loss (3) End stage kidney disease Code(s): N18.6 - END STAGE RENAL DISEASE (4) Heart valve replaced Code(s): Z95.2 - PRESENCE OF PROSTHETIC HEART VALVE (5) Hematoma of hip Code(s): S70.00XA - CONTUSION OF UNSPECIFIED HIP, INITIAL ENCOUNTER Qualifiers: Encounter type: initial encounter Laterality: left Qualified Code(s): S70.02XA - Contusion of left hip, initial encounter (6) History of fracture of left hip Code(s): Z87.81 - PERSONAL HISTORY OF (HEALED) TRAUMATIC FRACTURE (7) Hyperparathyroidism Code(s): E21.3 - HYPERPARATHYROIDISM, UNSPECIFIED (8) Hyperparathyroidism due to ESRD on dialysis Code(s): E21.3 - HYPERPARATHYROIDISM, UNSPECIFIED; N18.6 - END STAGE RENAL DISEASE; Z99.2 - DEPENDENCE ON RENAL DIALYSIS (9) Pathological fracture due to secondary osteoporosis Code(s): M80.80XA - OTH OSTEOPOR W CURRENT PATH FRACTURE, UNSP SITE, INIT (10) Renal transplant, status post Code(s): Z94.0 - KIDNEY TRANSPLANT STATUS Assessment/Plan Assessment/Plan ANEMIA - s/p 3 units of PRBC -? acute on chronic blood loss -left gluteal daniel hematoma on pelvic CT -- CTA done and pending -coumadin on hold -asa on hold -will need to start him on heparin drip sometime this afternoon - spoke with Cardiology -h/h currently stable -monitor cbc BID -stool OB -S/P Multiple mechanical valve replacement -currently Coumadin on hold -INR noted -cardiac evaluation -- spoke with Dr Solorio -will initiate transfer to [facility] due to complicated case-- he had surgery there in 07/12 for left hip and hematoma developed-- can not resume coumadin due to bleeding but will need to start him on Heparin drip as he has mechanical valves and risk of CVA high if he is not on anticoagulation -- if he rebleeds, CBC drops, then Heparin drip can be stopped afib- rate controlled continue with medications monitor in telemetry s/p left and right hip fractures s/p recent left hip ORIF 07/12- S/P prince prosthetic fracture- - orthopedic evaluation noted, xrays noted ESRD - S/P HD - M-W- - dr gonzalez following Osteoporosis secondary hyperparathyroidism DVT PPX- SCD Venous doppler done in [facility] negative for DVT= LEFT LEG
[2017-07-28] MEDS ORDERED: PT OWN MED DRAWER 7, Y5N ONE ×5 (09:31→17:40)
[2017-07-28] MEDS: METOPROLOL SUCCINATE 25 MG TAB.SR.24H (FP) PO SCH (09:40)
[2017-07-28] MEDS: AMIODARONE HCL 200 MG TABLET (FP) PO SCH (09:40)
[2017-07-28] MEDS: DOCUSATE SODIUM 100 MG CAPSULE (FP) PO SCH (09:40)
[2017-07-28] MEDS: predniSONE 5 MG TABLET (UD) PO SCH (09:40)
[2017-07-28] MEDS: MIDODRINE HCL 5 MG TABLET PO SCH ×3 (09:41→17:43)
[2017-07-28] MEDS: NYSTATIN 100,000 UNIT/GM TOPICAL CREAM 15 GM TUBE TP SCH ×2 (09:41→21:13)
--- NOTE | 2017-07-28 10:23 | CON.CARD ---
Consult Consult Specialty:: CARDIOLOGY Referred by:: Dr. Mayda Lagunas Reason for Consultation:: Cardiac evaluation - History of Present Illness Chief Complaint: Severe anemia with left guteal hematoma History of Present Illness: Patient is a 52 year old male with underlying history of aortic valve replacement and mitral valve replacement with a mechanical prosthesis and tricuspid valve repair, history of atrial fibrillation s/p maze procedure, ESRD on HD also has had renal transplant, hyperparathyroidism, osteoporosis, s/p hemiarthroplasty of both right and left femoral neck fracture at [facility] in May of this year followed by bilateral prince-prosthetic fracture repair at [facility] in June and July. He was sent in from HD with low hemoglobin. He was transfused with PRBC and was found to have left gluteal daniel hematoma. Coumadin has been held. He denies chest pain, shortness of breath or palpitations. He denies paroxysmal nocturnal dyspnea or orthopnea. He denies fever or chills. He denies headache or lightheadedness. He denies nausea, vomiting, diarrhea or abdominal pain. - History Source History Provided By: Patient, Medical Record Limitations to Obtaining History: No Limitations - Past Medical History Cardio/Vascular: Yes: AFIB, Aortic Stenosis, CAD, HTN, Hyperlipdemia, Mitral Insufficiency, Other (AVR/MVR/TV REPAIR, AFIB-left maze-2015, s/p ablation) Renal/: Yes: Hemodialysis, Other (horse shoe kidney, renal transplant) Rheumatology: Yes: Other (osteoperosis, hyperparathyroidism) - Past Surgical History Past Surgical History: Yes: AV Fistula/Graft, Kidney Transplant, Valve Replacement - Alcohol/Substance Use Hx Alcohol Use: No History of Substance Use: reports: None - Smoking History Smoking history: Former smoker Have you smoked in the past 12 months: No - Social History History of Recent Travel: No Home Medications - Allergies Allergies/Adverse Reactions: Allergies Allergy/AdvReac Type Severity Reaction Status Date / Time cinacalcet HCl Allergy Verified 07/26/17 10:53 [From Sensipar] - Home Medications Home Medications: Ambulatory Orders Amiodarone HCl [Cordarone -] 200 mg PO DAILY 07/26/17 Bacitracin - [Bacitracin Topical Ointment -] 1 applic TP DAILY 07/26/17 Bupropion HCl [Bupropion HCl Sr] 150 mg PO BID 07/26/17 Calcium Acetate 667 mg PO TID 07/26/17 Clonazepam [KlonoPIN] 0.5 mg PO HS 07/26/17 Docusate Sodium [Colace -] 100 mg PO DAILY 07/26/17 Ergocalciferol (Vitamin D2) [Vitamin D2] 50,000 unit PO WEEKLY 07/26/17 Famotidine [Pepcid] 20 mg PO DAILY 07/26/17 Gabapentin 125 mg PO TID 07/26/17 Methylnaltrexone [place] [Relistor] 12 mg SQ DAILY PRN 07/26/17 Metoprolol Succinate [Toprol XL -] 25 mg PO DAILY 07/26/17 Midodrine HCl 5 mg PO TID 07/26/17 Morphine Sulfate 15 mg PO Q8H 07/26/17 Na Phos,M-B/Na Phos,Di-Ba [Enema Cafkl-Hr-Rfa] 133 ml RC DAILY PRN 07/26/17 Prednisone [Deltasone -] 5 mg PO DAILY 07/26/17 Heparin - 1,000 unit IVPUSH PRN PRN vial 07/29/17 Heparin - 5,000 unit IVPUSH PRN PRN vial 07/29/17 Nystatin Cream [Mycostatin Cream -] 1 applic TP BID applic 07/29/17 Polyethylene Glycol 3350 [Miralax 119 gm Btl -] 17 gm PO DAILY PRN bottle 07/29 Review of Systems - Review of Systems Constitutional: denies: Chills, Fever Cardiovascular: denies: Chest Pain, Palpitations, Shortness of Breath Respiratory: denies: Cough, Hemoptysis, Orthopnea, PND, SOB, SOB on Exertion Gastrointestinal: denies: Abdominal Pain, Constipation, Diarrhea, Melena, Nausea , Rectal Bleeding, Vomiting Genitourinary: denies: Dysuria, Hematuria Musculoskeletal: reports: Extremity Pain, Joint Pain Neurological: denies: Dizziness, Headache, Seizure, Syncope Vital Signs: Vital Signs Temperature 98.1 F 07/28/17 05:29 Pulse Rate 63 07/28/17 05:29 Respiratory Rate 20 07/28/17 05:29 Blood Pressure 115/76 07/28/17 05:29 O2 Sat by Pulse Oximetry (%) 95 07/27/17 21:00 Neck: Yes: Supple Respiratory: Yes: CTA Bilaterally Gastrointestinal: Yes: Normal Bowel Sounds, Soft. No: Tenderness Cardiovascular: Yes: Regular Rate and Rhythm. No: Gallop JVD: No Carotid Bruit: No PMI: Non-Displaced Heart Sounds: Yes: S1, S2, Clicks Murmur: Yes: Systolic Murmur, Grade 2 Extremities: Yes: Other (left gluteal area hematoma and swelling, surgical site dressed) Edema: No - Other Data Labs, Other Data: CBC, BMP 07/28/17 05:42 07/28/17 05:42 INR, PTT INR 2.25 (0.82-1.09) H 07/28/17 05:42 Imaging - Results Chest X-ray: Report Reviewed (Large heart, right pleural effusion, atelectasis, mild congestion) X-ray: Report Reviewed (Hip xray) Cat Scan: Report Reviewed (Abdominal/pelvis CT) EKG: Report Reviewed Problem List - Problems (1) ESRD on hemodialysis Code(s): N18.6 - END STAGE RENAL DISEASE; Z99.2 - DEPENDENCE ON RENAL DIALYSIS (3) Osteoporosis Code(s): M81.0 - AGE-RELATED OSTEOPOROSIS W/O CURRENT PATHOLOGICAL FRACTURE Qualifiers: Osteoporosis type: unspecified Presence of current pathological fracture: with current pathological fracture Encounter type: initial encounter Qualified Code(s): M80.00XA - Age-related osteoporosis with current pathological fracture, unspecified site, initial encounter for fracture (4) H/O mitral valve replacement with mechanical valve Code(s): Z95.2 - PRESENCE OF PROSTHETIC HEART VALVE (5) Hx of aortic valve replacement, mechanical Code(s): Z95.2 - PRESENCE OF PROSTHETIC HEART VALVE (6) A-fib Code(s): I48.91 - UNSPECIFIED ATRIAL FIBRILLATION Qualifiers: Atrial fibrillation type: persistent Qualified Code(s): I48.1 - Persistent atrial fibrillation (7) Acute posthemorrhagic anemia Code(s): D62 - ACUTE POSTHEMORRHAGIC ANEMIA (8) End stage kidney disease Code(s): N18.6 - END STAGE RENAL DISEASE (9) Hematoma of hip Code(s): S70.00XA - CONTUSION OF UNSPECIFIED HIP, INITIAL ENCOUNTER Qualifiers: Encounter type: initial encounter Laterality: left Qualified Code(s): S70.02XA - Contusion of left hip, initial encounter (10) History of fracture of left hip Code(s): Z87.81 - PERSONAL HISTORY OF (HEALED) TRAUMATIC FRACTURE (11) History of fracture of left hip Code(s): Z87.81 - PERSONAL HISTORY OF (HEALED) TRAUMATIC FRACTURE (12) Hyperparathyroidism Code(s): E21.3 - HYPERPARATHYROIDISM, UNSPECIFIED (13) Renal transplant, status post Code(s): Z94.0 - KIDNEY TRANSPLANT STATUS Assessment/Plan 1. Post bilateral hip surgeries - recent now with left gluteal daniel hematoma 2. Anemia - possible blood loss due to above, post transfusion 3. ESRD on HD, history of horseshoe kidney and renal transplant 4. AVR - mechanical prosthesis, MVR - mechanical prosthesis and TV repair 5. Atrial fibrillation s/p MAZE 6. Hyperparathyroidism 7. Osteoporosis PLAN: 1. Monitor CBC and transfuse PRBC as needed 2. Await Orthopedic evaluation and further recommendation 3. Continue Metoprolol 4. Coumadin has been held. Would initiate Heparin drip 5. Consider transferring patient to [facility] for further management of the hip Further plans are to follow Qamar Solorio MD
--- NOTE | 2017-07-28 11:17 | CONSULT ---
Consult Consult Specialty:: Surgery Referred by:: Mayda Lagunas - History of Present Illness Chief Complaint: Patient with multiple medical problems, asked to evaluate for bleeding into his pelvis and left hip and thigh. History of Present Illness: [facility], where he was admitted for rehab, after surgery on his left hip, at [facility]. He was found to be anemic, with acute drop in his hematocrit, needing 3 units of packed RBCs. He is in renal failure , and on dialysis with chronic anemia. Ct scan showed, hematoma in his pelvis, left hip and left thigh. - History Source History Provided By: Patient Limitations to Obtaining History: No Limitations - Past Medical History Cardio/Vascular: Yes: AFIB, CAD, HTN, Hyperlipdemia, Other (AVR/MVR/TV REPAIR, AFIB-left maze-2015, s/p ablation) Renal/: Yes: Hemodialysis, Other (horse shoe kidney, renal transplant) Rheumatology: Yes: Other (osteoperosis, hyperparathyroidism) - Past Surgical History Past Surgical History: Yes: AV Fistula/Graft, Kidney Transplant, Valve Replacement - Alcohol/Substance Use Hx Alcohol Use: No - Smoking History Smoking history: Former smoker Have you smoked in the past 12 months: No - Social History History of Recent Travel: No Home Medications - Allergies Allergies/Adverse Reactions: Allergies Allergy/AdvReac Type Severity Reaction Status Date / Time cinacalcet HCl Allergy Verified 07/26/17 10:53 [From Sensipar] - Home Medications Home Medications: Ambulatory Orders Amiodarone HCl [Cordarone -] 200 mg PO DAILY 07/26/17 Aspirin [ASA -] 81 mg PO DAILY 07/26/17 Bacitracin - [Bacitracin Topical Ointment -] 1 applic TP DAILY 07/26/17 Bupropion HCl [Bupropion HCl Sr] 150 mg PO BID 07/26/17 Calcium Acetate 667 mg PO TID 07/26/17 Clonazepam [KlonoPIN] 0.5 mg PO HS 07/26/17 Docusate Sodium [Colace -] 100 mg PO DAILY 07/26/17 Ergocalciferol (Vitamin D2) [Vitamin D2] 50,000 unit PO WEEKLY 07/26/17 Famotidine [Pepcid] 20 mg PO DAILY 07/26/17 Gabapentin 125 mg PO TID 07/26/17 Methylnaltrexone [place] [Relistor] 12 mg SQ DAILY PRN 07/26/17 Metoprolol Succinate [Toprol Xl -] 25 mg PO DAILY 07/26/17 Midodrine HCl 5 mg PO TID 07/26/17 Morphine Sulfate 15 mg PO Q8H 07/26/17 Na Phos,M-B/Na Phos,Di-Ba [Enema Meqnr-Iv-Ysl] 133 ml RC DAILY PRN 07/26/17 Prednisone [Deltasone -] 5 mg PO DAILY 07/26/17 Warfarin Sodium [Coumadin] 1 mg PO DAILY 07/26/17 Physical Exam Vital Signs: Vital Signs Temperature 98.1 F 07/28/17 05:29 Pulse Rate 63 07/28/17 05:29 Respiratory Rate 20 07/28/17 05:29 Blood Pressure 115/76 07/28/17 05:29 O2 Sat by Pulse Oximetry (%) 95 07/27/17 21:00 Constitutional: Yes: Anxious, Pallor Gastrointestinal: Yes: Distention Renal/: Yes: Anuria Extremities: Yes: Other (Bilateral lower exremities in external rotation. Swelling of left thigh , and left buttock. Both legs are normal, no sign of acute ischemia. Fresh wound on lateral aspect of left hip.) Labs: CBC, BMP 07/28/17 05:42 07/28/17 05:42 Imaging - Results Cat Scan: Report Reviewed, Image Reviewed Problem List - Problems (1) Acute posthemorrhagic anemia Code(s): D62 - ACUTE POSTHEMORRHAGIC ANEMIA (2) History of fracture of left hip Code(s): Z87.81 - PERSONAL HISTORY OF (HEALED) TRAUMATIC FRACTURE (3) End stage kidney disease Code(s): N18.6 - END STAGE RENAL DISEASE (4) Hematoma of hip Code(s): S70.00XA - CONTUSION OF UNSPECIFIED HIP, INITIAL ENCOUNTER Qualifiers: Encounter type: initial encounter Laterality: left Qualified Code(s): S70.02XA - Contusion of left hip, initial encounter Assessment/Plan Wait for results of CTA , to assess any need for immediate intervention. Ptient seems to have contained acute bleeding with stable hematocrit. Consider rnsferring [facility] for his complex situation. Discusssed with Dr. Mayda Lagunas.
[2017-07-28] MEDS: PANTOPRAZOLE 40 MG TABLET (FP) PO SCH (12:32)
--- NOTE | 2017-07-28 15:46 | PN ---
Progress Note, Physician History of Present Illness: Pt seen and examined at bedside. He was taken for stat ct angio ordered by surgery. We took him to HD shortly after the scan early this morning around 2 am. Pt tolerated HD. - Current Medication List Current Medications: Active Medications Amiodarone HCl (Cordarone -) 200 mg PO DAILY [facility] Last Admin: 07/28/17 09:40 Dose: 200 mg Bupropion HCl (Wellbutrin Xl -) 300 mg PO DAILY [facility] Last Admin: 07/28/17 09:40 Dose: 300 mg Calcium Acetate (Phoslo -) 667 mg PO TID [facility] Last Admin: 07/28/17 14:53 Dose: 667 mg Clonazepam (Klonopin -) 0.5 mg PO HS [facility] Last Admin: 07/27/17 21:33 Dose: 0.5 mg Docusate Sodium (Colace -) 100 mg PO DAILY [facility] Last Admin: 07/28/17 09:40 Dose: 100 mg Ergocalciferol (Drisdol -) 50,000 unit PO Th@1000 [facility] Gabapentin (Neurontin Oral Liquid -) 125 mg PO TID [facility] Last Admin: 07/28/17 14:54 Dose: Not Given Methylnaltrexone [place] (Relistor -) 6 mg SQ DAILY PRN PRN Reason: constipation Metoprolol Succinate (Toprol Xl -) 25 mg PO DAILY [facility] Last Admin: 07/28/17 09:40 Dose: 25 mg Midodrine (Proamatine -) 5 mg PO TID-MID [facility] Last Admin: 07/28/17 14:54 Dose: 5 mg Morphine Sulfate (Msir -) 15 mg PO Q6H PRN PRN Reason: MODERATE PAIN Nystatin (Mycostatin Cream -) 1 applic TP BID [facility] Last Admin: 07/28/17 09:41 Dose: 1 applic Pantoprazole Sodium (Protonix -) 40 mg PO DAILY [facility] Last Admin: 07/28/17 12:32 Dose: 40 mg Polyethylene Glycol (Miralax (For Daily Use) -) 17 gm PO DAILY PRN PRN Reason: CONSTIPATION Prednisone (Deltasone -) 5 mg PO DAILY [facility] Last Admin: 07/28/17 09:40 Dose: 5 mg - Objective Vital Signs: Vital Signs Temperature 98 F 07/28/17 14:10 Pulse Rate 65 07/28/17 14:10 Respiratory Rate 20 07/28/17 14:10 Blood Pressure 126/73 07/28/17 14:10 O2 Sat by Pulse Oximetry (%) 95 07/28/17 09:00 Constitutional: Yes: Calm Eyes: Yes: Conjunctiva Clear HENT: Yes: Atraumatic Neck: Yes: Supple Cardiovascular: Yes: S1, S2 Respiratory: Yes: CTA Bilaterally Gastrointestinal: Yes: Normal Bowel Sounds, Soft Genitourinary: Yes: WNL Musculoskeletal: Yes: Other (hip pain) Edema: Yes Edema: LLE: 1+, RLE: 1+ Neurological: Yes: Oriented Psychiatric: Yes: Oriented Labs: CBC, BMP 07/28/17 05:42 07/28/17 05:42 INR, PTT INR 2.25 (0.82-1.09) H 07/28/17 05:42 Problem List - Problems (1) A-fib Code(s): I48.91 - UNSPECIFIED ATRIAL FIBRILLATION Qualifiers: Atrial fibrillation type: paroxysmal Qualified Code(s): I48.0 - Paroxysmal atrial fibrillation (2) Anemia Code(s): D64.9 - ANEMIA, UNSPECIFIED Qualifiers: Iron deficiency anemia type: chronic blood loss (3) End stage kidney disease Code(s): N18.6 - END STAGE RENAL DISEASE (4) Heart valve replaced Code(s): Z95.2 - PRESENCE OF PROSTHETIC HEART VALVE (5) Renal transplant, status post Code(s): Z94.0 - KIDNEY TRANSPLANT STATUS Assessment/Plan Current Medications Generic Name Dose Route Start Last Admin Trade Name Freq PRN Reason Stop Dose Admin Amiodarone HCl 200 mg 07/27/17 10:00 07/28/17 09:40 Cordarone - PO 200 mg DAILY [facility] Administration Bupropion HCl 300 mg 07/27/17 10:00 07/28/17 09:40 Wellbutrin Xl - PO 300 mg DAILY [facility]EE[facility] Administration Calcium Acetate 667 mg 07/26/17 22:00 07/28/17 14:53 Phoslo - PO 667 mg TID DEEPA Administration Clonazepam 0.5 mg 07/26/17 22:00 07/27/17 21:33 Klonopin - PO 0.5 mg HS DEEPA Administration Docusate Sodium 100 mg 07/27/17 10:00 07/28/17 09:40 Colace - PO 100 mg DAILY [facility]EEPA Administration Ergocalciferol 50,000 unit 08/01/17 10:00 Drisdol - PO Th@1000 [facility] Gabapentin 125 mg 07/26/17 22:00 07/28/17 14:54 Neurontin Oral Liquid - PO Not Given TID [facility] Methylnaltrexone [place] 6 mg 07/27/17 13:28 Relistor - SQ DAILY PRN constipation Metoprolol Succinate 25 mg 07/27/17 10:00 07/28/17 09:40 Toprol Xl - PO 25 mg DAILY [facility]EEPA Administration Midodrine 5 mg 07/27/17 10:00 07/28/17 14:54 Proamatine - PO 5 mg TID-MID DEEPA Administration Morphine Sulfate 15 mg 07/27/17 14:40 Msir - PO Q6H PRN MODERATE PAIN Nystatin 1 applic 07/27/17 16:30 07/28/17 09:41 Mycostatin Cream - TP 1 applic BID [facility]EE[facility] Administration Pantoprazole Sodium 40 mg 07/28/17 10:30 07/28/17 12:32 Protonix - PO 40 mg DAILY [facility]EEPA Administration Polyethylene Glycol 17 gm 07/28/17 09:53 Miralax (For Daily Use) - PO DAILY PRN CONSTIPATION Prednisone 5 mg 07/27/17 10:00 07/28/17 09:40 Deltasone - PO 5 mg DAILY [facility]EE[facility] Administration Impression 1. ESRD 2. anemia 3. a-fib 4. valvular heart disease 5. s/p hip replacement 6. hx kidney transplant 7. hx renal cell carcinoma 8. pleural effusion 9. left gluteus hematoma Plan - ct angio complete - pt tolerated HD - next session tomorrow however pt is being transferred to [place] - will dialyze tomorrow here if he is not discharged - monitor hg closely - ortho follow up - monitor inr Dr Potts
[2017-07-28 18:02] LABS: MCH 31.9 pg (25.7-33.7); MCHC 33.6 g/dl (32.0-35.9); MEAN CELL VOLUME 94.9 fl (80-96); MEAN PLT VOLUME 7.3 fl (7.5-11.1); PLATELET COUNT 380 K/MM3 (134-434); RDW 19.2 % (11.9-15.9); WHITE BLOOD COUNT 9.2 K/mm3 (4.0-10.0)
[2017-07-28] MEDS ORDERED: HEPARIN NA (PORCINE) 5,000 UNITS/ML 1ML VIAL IVPUSH PRN (18:25)
[2017-07-28] MEDS: BISACODYL 10 MG SUPP.RECT RC PRN (18:32)
[2017-07-28] MEDS: HEPARIN INFUSION - 25,000 UNITS/500 ML INFUS.BAG IVPB SCH (18:40)
[2017-07-28] MEDS: clonazePAM 0.5 MG TABLET PO SCH (21:14)
[2017-07-29] MEDS: GABAPENTIN 250 MG/5 ML ORAL SOLUTION, 470 ML BOTTLE PO SCH ×3 (06:28→21:59)
[2017-07-29] MEDS: CALCIUM ACETATE 667 MG CAPSULE (FP) PO SCH ×3 (06:29→21:59)
[2017-07-29 07:09] LABS: MCH 31.7 pg (25.7-33.7); MCHC 33.4 g/dl (32.0-35.9); MEAN CELL VOLUME 94.7 fl (80-96); MEAN PLT VOLUME 7.2 fl (7.5-11.1); PLATELET COUNT 367 K/MM3 (134-434); RDW 19.2 % (11.9-15.9); WHITE BLOOD COUNT 9.2 K/mm3 (4.0-10.0)
[2017-07-29 07:48] LABS: INR 2.13 (0.82-1.09); PROTHROMBIN TIME (PATIENT) 24.1 SEC (9.98-11.88)
[2017-07-29 07:50] LABS: ANION GAP 9 (8-16); CALCIUM 8.3 mg/dL (8.5-10.1); CO2 30 mmol/L (21-32); CREATININE 4.6 mg/dL (0.7-1.3); GLUCOSE,RANDOM 100 mg/dL (74-106)
[2017-07-29] MEDS ORDERED: PT OWN MED DRAWER 7, Y5N ONE (09:21)
[2017-07-29] MEDS: predniSONE 5 MG TABLET (UD) PO SCH (10:13)
[2017-07-29] MEDS: NYSTATIN 100,000 UNIT/GM TOPICAL CREAM 15 GM TUBE TP SCH ×2 (10:13→21:59)
[2017-07-29] MEDS: PANTOPRAZOLE 40 MG TABLET (FP) PO SCH (10:14)
[2017-07-29] MEDS: METOPROLOL SUCCINATE 25 MG TAB.SR.24H (FP) PO SCH (10:14)
[2017-07-29] MEDS: DOCUSATE SODIUM 100 MG CAPSULE (FP) PO SCH (10:14)
[2017-07-29] MEDS: AMIODARONE HCL 200 MG TABLET (FP) PO SCH (10:14)
[2017-07-29] MEDS: MIDODRINE HCL 5 MG TABLET PO SCH ×3 (10:16→18:44)
[2017-07-29] MEDS: HEPARIN NA (PORCINE) 5,000 UNITS/ML 1ML VIAL IVPUSH PRN (10:30)
--- NOTE | 2017-07-29 10:44 | PN ---
Progress Note, Physician Chief Complaint: Has pain in left hip no distress - Current Medication List Current Medications: Active Medications Amiodarone HCl (Cordarone -) 200 mg PO DAILY [facility] Last Admin: 07/29/17 10:14 Dose: 200 mg Bisacodyl (Dulcolax Suppository -) 10 mg RC DAILY PRN PRN Reason: CONSTIPATION Last Admin: 07/28/17 18:32 Dose: 10 mg Bupropion HCl (Wellbutrin Xl -) 300 mg PO DAILY [facility] Last Admin: 07/29/17 10:16 Dose: 300 mg Calcium Acetate (Phoslo -) 667 mg PO TID [facility] Last Admin: 07/29/17 06:29 Dose: Not Given Clonazepam (Klonopin -) 0.5 mg PO HS [facility] Last Admin: 07/28/17 21:14 Dose: 0.5 mg Docusate Sodium (Colace -) 100 mg PO DAILY [facility] Last Admin: 07/29/17 10:14 Dose: 100 mg Epoetin [place] (Epogen -) 8,000 units IVPUSH ONCE ONE Stop: 07/29/17 10:36 Ergocalciferol (Drisdol -) 50,000 unit PO Th@1000 [facility] Gabapentin (Neurontin Oral Liquid -) 125 mg PO TID [facility] Last Admin: 07/29/17 06:28 Dose: Not Given Heparin Sodium (Porcine) (Heparin -) 1,000 unit IVPUSH PRN PRN PRN Reason: Heparin Heparin Sodium (Porcine) (Heparin -) 5,000 unit IVPUSH PRN PRN PRN Reason: Heparin Heparin Sodium/Dextrose (Heparin Infusion -) 25,000 units in 500 mls @ 20 mls/ hr IVPB TITR DEEPA; 1,000 UNITS/HR PRN Reason: Protocol Last Admin: 07/28/17 18:40 Dose: 1,000 units/hr, 20 mls/hr Methylnaltrexone [place] (Relistor -) 6 mg SQ DAILY PRN PRN Reason: constipation Metoprolol Succinate (Toprol Xl -) 25 mg PO DAILY [facility] Last Admin: 07/29/17 10:14 Dose: 25 mg Midodrine (Proamatine -) 5 mg PO TID-MID [facility] Last Admin: 07/29/17 10:16 Dose: 5 mg Morphine Sulfate (Msir -) 15 mg PO Q6H PRN PRN Reason: MODERATE PAIN Nystatin (Mycostatin Cream -) 1 applic TP BID [facility] Last Admin: 07/29/17 10:13 Dose: 1 applic Pantoprazole Sodium (Protonix -) 40 mg PO DAILY [facility] Last Admin: 07/29/17 10:14 Dose: 40 mg Polyethylene Glycol (Miralax (For Daily Use) -) 17 gm PO DAILY PRN PRN Reason: CONSTIPATION Prednisone (Deltasone -) 5 mg PO DAILY [facility] Last Admin: 07/29/17 10:13 Dose: 5 mg - Objective Vital Signs: Vital Signs Temperature 98.5 F 07/29/17 06:00 Pulse Rate 62 07/29/17 06:00 Respiratory Rate 20 07/29/17 06:00 Blood Pressure 121/65 07/29/17 06:00 O2 Sat by Pulse Oximetry (%) 98 07/28/17 21:00 Constitutional: Yes: No Distress, Calm Cardiovascular: Yes: Pulse Irregular, Murmur, S1, S2, Other (systolic click +) Respiratory: Yes: Diminished Gastrointestinal: Yes: Normal Bowel Sounds, Soft. No: Distention, Tenderness Extremities: Yes: External Rotation (left leg) Edema: Yes Psychiatric: Yes: Alert, Oriented Labs: CBC, BMP 07/29/17 06:35 07/29/17 06:35 INR, PTT INR 2.13 (0.82-1.09) H 07/29/17 06:35 - ....Imaging Cat Scan: Report Reviewed Problem List - Problems (1) A-fib Code(s): I48.91 - UNSPECIFIED ATRIAL FIBRILLATION Qualifiers: Atrial fibrillation type: paroxysmal Qualified Code(s): I48.0 - Paroxysmal atrial fibrillation (2) Anemia Code(s): D64.9 - ANEMIA, UNSPECIFIED Qualifiers: Anemia type: unspecified type Qualified Code(s): D64.9 - Anemia, unspecified (3) End stage kidney disease Code(s): N18.6 - END STAGE RENAL DISEASE (4) Heart valve replaced Code(s): Z95.2 - PRESENCE OF PROSTHETIC HEART VALVE (5) Hematoma of hip Code(s): S70.00XA - CONTUSION OF UNSPECIFIED HIP, INITIAL ENCOUNTER Qualifiers: Encounter type: initial encounter Laterality: left Qualified Code(s): S70.02XA - Contusion of left hip, initial encounter (6) History of fracture of left hip Code(s): Z87.81 - PERSONAL HISTORY OF (HEALED) TRAUMATIC FRACTURE (7) Hyperparathyroidism Code(s): E21.3 - HYPERPARATHYROIDISM, UNSPECIFIED (8) Hyperparathyroidism due to ESRD on dialysis Code(s): E21.3 - HYPERPARATHYROIDISM, UNSPECIFIED; N18.6 - END STAGE RENAL DISEASE; Z99.2 - DEPENDENCE ON RENAL DIALYSIS (9) Pathological fracture due to secondary osteoporosis Code(s): M80.80XA - OTH OSTEOPOR W CURRENT PATH FRACTURE, UNSP SITE, INIT (10) Renal transplant, status post Code(s): Z94.0 - KIDNEY TRANSPLANT STATUS Assessment/Plan Assessment/Plan ANEMIA - s/p 3 units of PRBC -? acute on chronic blood loss -left gluteal daniel hematoma on pelvic CT -- CTA -- NO EXTRAVASATION -coumadin on hold -asa on hold - on heparin drip -h/h currently stable -monitor cbc BID -stool OB -S/P Multiple mechanical valve replacement -currently Coumadin on hold -INR noted -awaiting bed availability at [facility] afib- rate controlled continue with medications monitor in telemetry Heparin infusion s/p left and right hip fractures s/p recent left hip ORIF 07/12- S/P prince prosthetic fracture- - orthopedic evaluation noted, xrays noted ESRD - S/P HD - -- - dr gonzalez following Osteoporosis secondary hyperparathyroidism DVT PPX- SCD Venous doppler done in [facility] negative for DVT= LEFT LEG
--- NOTE | 2017-07-29 10:45 | PN ---
Progress Note, Physician Chief Complaint: Complains of left thigh pain History of Present Illness: Patient was seen and examined. Awake and alert. Chart was reviewed Denies chest pain, SOB or palpitations - Current Medication List Current Medications: Active Medications Amiodarone HCl (Cordarone -) 200 mg PO DAILY [facility] Last Admin: 07/29/17 10:14 Dose: 200 mg Bisacodyl (Dulcolax Suppository -) 10 mg RC DAILY PRN PRN Reason: CONSTIPATION Last Admin: 07/28/17 18:32 Dose: 10 mg Bupropion HCl (Wellbutrin Xl -) 300 mg PO DAILY [facility] Last Admin: 07/29/17 10:16 Dose: 300 mg Calcium Acetate (Phoslo -) 667 mg PO TID [facility] Last Admin: 07/29/17 06:29 Dose: Not Given Clonazepam (Klonopin -) 0.5 mg PO HS [facility] Last Admin: 07/28/17 21:14 Dose: 0.5 mg Docusate Sodium (Colace -) 100 mg PO DAILY [facility] Last Admin: 07/29/17 10:14 Dose: 100 mg Epoetin [place] (Epogen -) 8,000 units IVPUSH ONCE ONE Stop: 07/29/17 10:36 Ergocalciferol (Drisdol -) 50,000 unit PO Th@1000 [facility] Gabapentin (Neurontin Oral Liquid -) 125 mg PO TID [facility] Last Admin: 07/29/17 06:28 Dose: Not Given Heparin Sodium (Porcine) (Heparin -) 1,000 unit IVPUSH PRN PRN PRN Reason: Heparin Heparin Sodium (Porcine) (Heparin -) 5,000 unit IVPUSH PRN PRN PRN Reason: Heparin Heparin Sodium/Dextrose (Heparin Infusion -) 25,000 units in 500 mls @ 20 mls/ hr IVPB TITR DEEPA; 1,000 UNITS/HR PRN Reason: Protocol Last Admin: 07/28/17 18:40 Dose: 1,000 units/hr, 20 mls/hr Methylnaltrexone [place] (Relistor -) 6 mg SQ DAILY PRN PRN Reason: constipation Metoprolol Succinate (Toprol Xl -) 25 mg PO DAILY [facility] Last Admin: 07/29/17 10:14 Dose: 25 mg Midodrine (Proamatine -) 5 mg PO TID-MID [facility] Last Admin: 07/29/17 10:16 Dose: 5 mg Morphine Sulfate (Msir -) 15 mg PO Q6H PRN PRN Reason: MODERATE PAIN Nystatin (Mycostatin Cream -) 1 applic TP BID [facility] Last Admin: 07/29/17 10:13 Dose: 1 applic Pantoprazole Sodium (Protonix -) 40 mg PO DAILY [facility] Last Admin: 07/29/17 10:14 Dose: 40 mg Polyethylene Glycol (Miralax (For Daily Use) -) 17 gm PO DAILY PRN PRN Reason: CONSTIPATION Prednisone (Deltasone -) 5 mg PO DAILY [facility] Last Admin: 07/29/17 10:13 Dose: 5 mg - Objective Vital Signs: Vital Signs Temperature 98.5 F 07/29/17 06:00 Pulse Rate 62 07/29/17 06:00 Respiratory Rate 20 07/29/17 06:00 Blood Pressure 121/65 07/29/17 06:00 O2 Sat by Pulse Oximetry (%) 98 07/28/17 21:00 Neck: Yes: Supple Cardiovascular: Yes: Regular Rate and Rhythm, Murmur (2/6 SM and mechanical click), S1, S2 Respiratory: Yes: CTA Bilaterally Gastrointestinal: Yes: Normal Bowel Sounds, Soft. No: Tenderness Extremities: Yes: Other (Left thigh hematoma) Edema: No Additional Findings/Remarks: - Review of Systems Constitutional: denies: Chills, Fever Cardiovascular: denies: Chest Pain, Palpitations, Shortness of Breath Respiratory: denies: Cough, Hemoptysis, Orthopnea, PND, SOB, SOB on Exertion Gastrointestinal: denies: Abdominal Pain, Constipation, Diarrhea, Melena, Nausea , Rectal Bleeding, Vomiting Genitourinary: denies: Dysuria, Hematuria Musculoskeletal: reports: Extremity Pain, Joint Pain Neurological: denies: Dizziness, Headache, Seizure, Syncope Labs: CBC, BMP 07/29/17 06:35 07/29/17 06:35 INR, PTT INR 2.13 (0.82-1.09) H 07/29/17 06:35 Problem List - Problems (1) A-fib Code(s): I48.91 - UNSPECIFIED ATRIAL FIBRILLATION Qualifiers: Atrial fibrillation type: persistent Qualified Code(s): I48.1 - Persistent atrial fibrillation (2) Acute posthemorrhagic anemia Code(s): D62 - ACUTE POSTHEMORRHAGIC ANEMIA (3) ESRD on hemodialysis Code(s): N18.6 - END STAGE RENAL DISEASE; Z99.2 - DEPENDENCE ON RENAL DIALYSIS (4) H/O mitral valve replacement with mechanical valve Code(s): Z95.2 - PRESENCE OF PROSTHETIC HEART VALVE (6) History of fracture of left hip Code(s): Z87.81 - PERSONAL HISTORY OF (HEALED) TRAUMATIC FRACTURE (7) History of fracture of left hip Code(s): Z87.81 - PERSONAL HISTORY OF (HEALED) TRAUMATIC FRACTURE (8) Hx of aortic valve replacement, mechanical Code(s): Z95.2 - PRESENCE OF PROSTHETIC HEART VALVE (9) Hyperparathyroidism Code(s): E21.3 - HYPERPARATHYROIDISM, UNSPECIFIED (10) Osteoporosis Code(s): M81.0 - AGE-RELATED OSTEOPOROSIS W/O CURRENT PATHOLOGICAL FRACTURE Qualifiers: Osteoporosis type: unspecified Presence of current pathological fracture: with current pathological fracture Encounter type: initial encounter Qualified Code(s): M80.00XA - Age-related osteoporosis with current pathological fracture, unspecified site, initial encounter for fracture (11) Pathological fracture due to secondary osteoporosis Code(s): M80.80XA - OTH OSTEOPOR W CURRENT PATH FRACTURE, UNSP SITE, INIT (12) Renal transplant, status post Code(s): Z94.0 - KIDNEY TRANSPLANT STATUS Assessment/Plan 1. Post bilateral hip surgeries - recent now with left gluteal daniel hematoma 2. Anemia - possible blood loss due to above, post transfusion 3. ESRD on HD, history of horseshoe kidney and renal transplant 4. AVR - mechanical prosthesis, MVR - mechanical prosthesis and TV repair 5. Atrial fibrillation s/p MAZE 6. Hyperparathyroidism 7. Osteoporosis PLAN: 1. Monitor CBC and transfuse PRBC as needed 2. Await Orthopedic evaluation and further recommendation. Vascular surgical consultation and recommendation pending. General surgery input noted 3. Continue Metoprolol 4. Coumadin has been held. Continue Heparin drip 5. Consider transferring patient to [facility] for further management of the hip as per discussion with Dr. Lagunas yesterday if deemed reop is necessary Further plans are to follow Qamar Solorio MD
[2017-07-29] MEDS: HEPARIN INFUSION - 25,000 UNITS/500 ML INFUS.BAG IVPB SCH ×2 (11:22→18:00)
--- NOTE | 2017-07-29 13:14 | PN ---
Physical Exam: SUBJECTIVE: Patient seen and examined. He is complaining of left hip pain. No overnight events. OBJECTIVE: Vital Signs Period Temp Pulse Resp BP Sys/Deng Pulse Ox Last 24 Hr 97.5 F-98.6 F 62-66 20-20 107-126/65-77 98 GENERAL: The patient is awake, alert, and fully oriented, in no acute distress. HEAD: Normal with no signs of trauma. EYES: PERRL, extraocular movements intact ENT: oropharynx clear without exudates, moist mucous membranes. NECK: Trachea midline, full range of motion, supple. LUNGS: Breath sounds equal, clear to auscultation bilaterally, no wheezes, no crackles HEART: Regular rate and rhythm, S1, S2 without murmur, rub or gallop. ABDOMEN: Soft, nontender, distended, normoactive bowel sounds, no guarding, no rebound, no hepatosplenomegaly, no masses, suprapubic mass palpated, non tender. EXTREMITIES: 2+ pulses, warm, well-perfused, 1+ LE edema, externally rotated, tenderness to palpation over left hip, no erythema. NEUROLOGICAL: Normal speech, no facial asymmetry, gait not observed. PSYCH: Normal mood, normal affect. SKIN: Warm, dry, normal turgor, no rashes or lesions noted Laboratory Results - last 24 hr 07/28/17 07/29/17 07/29/17 17:10 06:35 06:35 WBC 9.2 9.2 RBC 2.78 L 2.67 L Hgb 8.9 L 8.4 L Hct 26.3 L 25.3 L MCV 94.9 94.7 MCH 31.9 31.7 MCHC 33.6 33.4 RDW 19.2 H 19.2 H Plt Count 380 367 MPV 7.3 L 7.2 L Manual Slide Review No Result Required. No Result Required. PT with INR 24.10 H INR 2.13 H PTT (Actin FS) Sodium Potassium Chloride Carbon Dioxide Anion Gap BUN Creatinine Random Glucose Calcium 07/29/17 07/29/17 06:35 09:00 WBC RBC Hgb Hct MCV MCH MCHC RDW Plt Count MPV Manual Slide Review PT with INR INR PTT (Actin FS) 44.1 H Sodium 140 Potassium 3.9 Chloride 101 Carbon Dioxide 30 Anion Gap 9 BUN 27 H D Creatinine 4.6 H D Random Glucose 100 D Calcium 8.3 L Active Medications Generic Name Dose Route Start Last Admin Trade Name Freq PRN Reason Stop Dose Admin Amiodarone HCl 200 mg 07/27/17 10:00 07/29/17 10:14 Cordarone - PO 200 mg DAILY [facility] Administration Bisacodyl 10 mg 07/28/17 16:01 07/28/17 18:32 Dulcolax Suppository - RC 10 mg DAILY PRN Administration CONSTIPATION Bupropion HCl 300 mg 07/27/17 10:00 07/29/17 10:16 Wellbutrin Xl - PO 300 mg DAILY [facility] Administration Calcium Acetate 667 mg 07/26/17 22:00 07/29/17 06:29 Phoslo - PO Not Given TID DEEPA Clonazepam 0.5 mg 07/26/17 22:00 07/28/17 21:14 Klonopin - PO 0.5 mg HS DEEPA Administration Docusate Sodium 100 mg 07/27/17 10:00 07/29/17 10:14 Colace - PO 100 mg DAILY DEEPA Administration Epoetin Rudolph 8,000 units 07/29/17 10:35 Epogen - IVPUSH 07/29/17 10:36 ONCE ONE Ergocalciferol 50,000 unit 08/01/17 10:00 Drisdol - PO Th@1000 [facility] Gabapentin 125 mg 07/26/17 22:00 07/29/17 06:28 Neurontin Oral Liquid - PO Not Given TID [facility] Heparin Sodium (Porcine) 1,000 unit 07/28/17 18:25 07/29/17 10:30 Heparin - IVPUSH 1,000 unit PRN PRN Administration Heparin Heparin Sodium (Porcine) 5,000 unit 07/28/17 18:25 Heparin - IVPUSH PRN PRN Heparin Heparin Sodium/Dextrose 25,000 units in 500 mls @ 20 mls/hr 07/28/17 18:30 11:22 Heparin Infusion - IVPB 1,100 units/hr TITR [facility] 22 mls/hr Protocol Administration 1,000 UNITS/HR Methylnaltrexone [place] 6 mg 07/27/17 13:28 Relistor - SQ DAILY PRN constipation Metoprolol Succinate 25 mg 07/27/17 10:00 07/29/17 10:14 Toprol Xl - PO 25 mg DAILY [facility] Administration Midodrine 5 mg 07/27/17 10:00 07/29/17 10:16 Proamatine - PO 5 mg TID-MID DEEPA Administration Morphine Sulfate 15 mg 07/27/17 14:40 Msir - PO Q6H PRN MODERATE PAIN Nystatin 1 applic 07/27/17 16:30 07/29/17 10:13 Mycostatin Cream - TP 1 applic BID DEEPA Administration Pantoprazole Sodium 40 mg 07/28/17 10:30 07/29/17 10:14 Protonix - PO 40 mg DAILY DEEPA Administration Polyethylene Glycol 17 gm 07/28/17 09:53 Miralax (For Daily Use) - PO DAILY PRN CONSTIPATION Prednisone 5 mg 07/27/17 10:00 07/29/17 10:13 Deltasone - PO 5 mg DAILY DEEPA Administration ASSESSMENT/PLAN: 52 year male with multiple comorbidities, ESRD, kidney transplant, recent hip surgery admitted for anemia and ESRD. 1. ESRD 2. anemia 3. a-fib 4. valvular heart disease 5. s/p hip replacement 6. hx kidney transplant 7. hx renal cell carcinoma 8. pleural effusion Plan - HD today, epogen given - Hgb 8.4 today, s/p transfusion - CT abdomen/pelvis, x ray-reviewed - monitor blood pressure - waiting for transfer to [facility] - renal diet Problem List - Problems (1) A-fib Code(s): I48.91 - UNSPECIFIED ATRIAL FIBRILLATION Qualifiers: Atrial fibrillation type: persistent Qualified Code(s): I48.1 - Persistent atrial fibrillation (2) Heart valve replaced Code(s): Z95.2 - PRESENCE OF PROSTHETIC HEART VALVE (3) Renal transplant, status post Code(s): Z94.0 - KIDNEY TRANSPLANT STATUS (4) Anemia Code(s): D64.9 - ANEMIA, UNSPECIFIED Qualifiers: Anemia type: unspecified type Qualified Code(s): D64.9 - Anemia, unspecified (5) End stage kidney disease Code(s): N18.6 - END STAGE RENAL DISEASE Visit type - Emergency Visit Emergency Visit: Yes ED Registration Date: 07/26/17 Care time: The patient presented to the Emergency Department on the above date and was hospitalized for further evaluation of their emergent condition. - New Patient This patient is new to me today: No - Critical Care Critical Care patient: No - Discharge Referral Referred to [facility] Med P.C.: No
--- NOTE | 2017-07-29 14:52 | PN ---
Progress Note, Physician History of Present Illness: Pt seen and examined at bedside. He is awake and alert. He is currently getting HD. - Current Medication List Current Medications: Active Medications Amiodarone HCl (Cordarone -) 200 mg PO DAILY [facility] Last Admin: 07/29/17 10:14 Dose: 200 mg Bisacodyl (Dulcolax Suppository -) 10 mg RC DAILY PRN PRN Reason: CONSTIPATION Last Admin: 07/28/17 18:32 Dose: 10 mg Bupropion HCl (Wellbutrin Xl -) 300 mg PO DAILY [facility] Last Admin: 07/29/17 10:16 Dose: 300 mg Calcium Acetate (Phoslo -) 667 mg PO TID [facility] Last Admin: 07/29/17 13:41 Dose: Not Given Clonazepam (Klonopin -) 0.5 mg PO HS [facility] Last Admin: 07/28/17 21:14 Dose: 0.5 mg Docusate Sodium (Colace -) 100 mg PO DAILY [facility] Last Admin: 07/29/17 10:14 Dose: 100 mg Epoetin Rudolph (Epogen -) 8,000 units IVPUSH ONCE ONE Stop: 07/29/17 10:36 Ergocalciferol (Drisdol -) 50,000 unit PO Th@1000 [facility] Gabapentin (Neurontin Oral Liquid -) 125 mg PO TID [facility] Last Admin: 07/29/17 13:41 Dose: Not Given Heparin Sodium (Porcine) (Heparin -) 1,000 unit IVPUSH PRN PRN PRN Reason: Heparin Last Admin: 07/29/17 10:30 Dose: 1,000 unit Heparin Sodium (Porcine) (Heparin -) 5,000 unit IVPUSH PRN PRN PRN Reason: Heparin Heparin Sodium/Dextrose (Heparin Infusion -) 25,000 units in 500 mls @ 20 mls/ hr IVPB TITR DEEPA; 1,000 UNITS/HR PRN Reason: Protocol Last Admin: 07/29/17 11:22 Dose: 1,100 units/hr, 22 mls/hr Methylnaltrexone [place] (Relistor -) 6 mg SQ DAILY PRN PRN Reason: constipation Metoprolol Succinate (Toprol Xl -) 25 mg PO DAILY [facility] Last Admin: 07/29/17 10:14 Dose: 25 mg Midodrine (Proamatine -) 5 mg PO TID-MID [facility] Last Admin: 07/29/17 13:42 Dose: Not Given Morphine Sulfate (Msir -) 15 mg PO Q6H PRN PRN Reason: MODERATE PAIN Nystatin (Mycostatin Cream -) 1 applic TP BID [facility] Last Admin: 07/29/17 10:13 Dose: 1 applic Pantoprazole Sodium (Protonix -) 40 mg PO DAILY [facility] Last Admin: 07/29/17 10:14 Dose: 40 mg Polyethylene Glycol (Miralax (For Daily Use) -) 17 gm PO DAILY PRN PRN Reason: CONSTIPATION Prednisone (Deltasone -) 5 mg PO DAILY [facility] Last Admin: 07/29/17 10:13 Dose: 5 mg - Objective Vital Signs: Vital Signs Temperature 97.9 F 07/29/17 10:00 Pulse Rate 74 07/29/17 14:00 Respiratory Rate 20 07/29/17 14:00 Blood Pressure 107/65 07/29/17 14:00 O2 Sat by Pulse Oximetry (%) 97 07/29/17 09:00 Constitutional: Yes: Calm Eyes: Yes: Conjunctiva Clear HENT: Yes: Atraumatic Neck: Yes: Supple Cardiovascular: Yes: S1, S2 Respiratory: Yes: CTA Bilaterally Gastrointestinal: Yes: Normal Bowel Sounds, Soft Genitourinary: Yes: WNL Musculoskeletal: Yes: Other (hip pain) Edema: Yes Edema: LLE: 1+, RLE: 1+ Integumentary: Yes: Tattoos Neurological: Yes: Oriented Psychiatric: Yes: Oriented Labs: CBC, BMP 07/29/17 06:35 INR, PTT INR 2.13 (0.82-1.09) H 07/29/17 06:35 Problem List - Problems (1) A-fib Code(s): I48.91 - UNSPECIFIED ATRIAL FIBRILLATION Qualifiers: Atrial fibrillation type: paroxysmal Qualified Code(s): I48.0 - Paroxysmal atrial fibrillation (2) Anemia Code(s): D64.9 - ANEMIA, UNSPECIFIED Qualifiers: Anemia type: unspecified type Qualified Code(s): D64.9 - Anemia, unspecified (3) End stage kidney disease Code(s): N18.6 - END STAGE RENAL DISEASE (4) Heart valve replaced Code(s): Z95.2 - PRESENCE OF PROSTHETIC HEART VALVE (5) Renal transplant, status post Code(s): Z94.0 - KIDNEY TRANSPLANT STATUS Assessment/Plan Current Medications Generic Name Dose Route Start Last Admin Trade Name Freq PRN Reason Stop Dose Admin Amiodarone HCl 200 mg 07/27/17 10:00 07/29/17 10:14 Cordarone - PO 200 mg DAILY [facility] Administration Bisacodyl 10 mg 07/28/17 16:01 07/28/17 18:32 Dulcolax Suppository - RC 10 mg DAILY PRN Administration CONSTIPATION Bupropion HCl 300 mg 07/27/17 10:00 07/29/17 10:16 Wellbutrin Xl - PO 300 mg DAILY [facility]EE[facility] Administration Calcium Acetate 667 mg 07/26/17 22:00 07/29/17 13:41 Phoslo - PO Not Given TID DEEPA Clonazepam 0.5 mg 07/26/17 22:00 07/28/17 21:14 Klonopin - PO 0.5 mg HS [facility]EE[facility] Administration Docusate Sodium 100 mg 07/27/17 10:00 07/29/17 10:14 Colace - PO 100 mg DAILY [facility] Administration Epoetin Rudolph 8,000 units 07/29/17 10:35 Epogen - IVPUSH 07/29/17 10:36 ONCE ONE Ergocalciferol 50,000 unit 08/01/17 10:00 Drisdol - PO Th@1000 [facility] Gabapentin 125 mg 07/26/17 22:00 07/29/17 13:41 Neurontin Oral Liquid - PO Not Given TID DEEPA Heparin Sodium (Porcine) 1,000 unit 07/28/17 18:25 07/29/17 10:30 Heparin - IVPUSH 1,000 unit PRN PRN Administration Heparin Heparin Sodium (Porcine) 5,000 unit 07/28/17 18:25 Heparin - IVPUSH PRN PRN Heparin Heparin Sodium/Dextrose 25,000 units in 500 mls @ 20 mls/hr 07/28/17 18:30 11:22 Heparin Infusion - IVPB 1,100 units/hr TITR [facility] 22 mls/hr Protocol Administration 1,000 UNITS/HR Methylnaltrexone [place] 6 mg 07/27/17 13:28 Relistor - SQ DAILY PRN constipation Metoprolol Succinate 25 mg 07/27/17 10:00 07/29/17 10:14 Toprol Xl - PO 25 mg DAILY [facility] Administration Midodrine 5 mg 07/27/17 10:00 07/29/17 13:42 Proamatine - PO Not Given TID-MID DEEPA Morphine Sulfate 15 mg 07/27/17 14:40 Msir - PO Q6H PRN MODERATE PAIN Nystatin 1 applic 07/27/17 16:30 07/29/17 10:13 Mycostatin Cream - TP 1 applic BID [facility]EEPA Administration Pantoprazole Sodium 40 mg 07/28/17 10:30 07/29/17 10:14 Protonix - PO 40 mg DAILY [facility] Administration Polyethylene Glycol 17 gm 07/28/17 09:53 Miralax (For Daily Use) - PO DAILY PRN CONSTIPATION Prednisone 5 mg 07/27/17 10:00 07/29/17 10:13 Deltasone - PO 5 mg DAILY DEE[facility] Administration Impression 1. ESRD 2. anemia 3. a-fib 4. valvular heart disease 5. s/p hip replacement 6. hx kidney transplant 7. hx renal cell carcinoma 8. pleural effusion 9. left gluteus hematoma Plan - HD today - pt is pending transfer to [place] for surgery - monitor hg - ortho follow up - monitor inr Dr Potts
--- NOTE | 2017-07-29 15:39 | CONSULT ---
Consult - text type - Consultation Consultation Note: I REVIEWED THE XRAYS. IT APPEARS THAT HE RECENTLY HAD AN IM NAILING OF A LEFT FEMORAL SHAFT FX. THE FEMORAL HEADS ARE ABSENT IN BOTH HIPS. THE HARDWARE LOOKS IN GOOD POSITION IMP: ORTHOPEDICALLY STABLE S/P IM TORSTEN LEFT FEMUR PLAN: NTD AT THIS TIME. HE SHOULD F/U WITH HIS ORTHOPEDIST UPON DC
[2017-07-29] MEDS ORDERED: EPOETIN ALFA 2,000 UNITS/1 ML VIAL IVPUSH ONE (18:15)
[2017-07-29 18:43] LABS: CREATININE 2.1 mg/dL (0.7-1.3)
--- NOTE | 2017-07-29 20:57 | PN ---
Progress Note (short form) - Note Progress Note: Vascular Surgery Pt seen and examined. S/P left hip surgery 3-4 weeks ago. Then had bleeding in pelvis . Left foot is warm, with good pulses. No tenderness in any area. [facility] No need for any vascular intervention Gato chavez DO
[2017-07-29 21:47] LABS: MCH 32.2 pg (25.7-33.7); MCHC 33.9 g/dl (32.0-35.9); MEAN PLT VOLUME 7.1 fl (7.5-11.1); PLATELET COUNT 373 K/MM3 (134-434); WHITE BLOOD COUNT 8.7 K/mm3 (4.0-10.0)
[2017-07-29] MEDS: clonazePAM 0.5 MG TABLET PO SCH (21:57)
--- NOTE | 2017-07-29 23:12 | EKG ---
Test Reason : Blood Pressure : / mmHG Vent. Rate : 075 BPM Atrial Rate : 079 BPM P-R Int : 000 ms QRS Dur : 134 ms QT Int : 446 ms P-R-T Axes : 000 071 023 degrees QTc Int : 498 ms WIDE QRS RHYTHM NON-SPECIFIC INTRA-VENTRICULAR CONDUCTION BLOCK T WAVE ABNORMALITY, CONSIDER ANTERIOR ISCHEMIA ABNORMAL ECG NO PREVIOUS ECGS AVAILABLE Confirmed by SABIHA POPE MD ([id number]) on 07/29/2017 11:11:53 PM Referred By: Confirmed By:SABIHA POPE MD
[2017-07-30] MEDS ORDERED: ACETAMINOPHEN 325 MG TABLET (FP) ONE (04:54)
[2017-07-30] MEDS: GABAPENTIN 250 MG/5 ML ORAL SOLUTION, 470 ML BOTTLE PO SCH ×3 (06:06→22:28)
[2017-07-30 07:16] LABS: ANION GAP 9 (8-16); CALCIUM 8.4 mg/dL (8.5-10.1); CO2 31 mmol/L (21-32); CREATININE 3.5 mg/dL (0.7-1.3); GLUCOSE,RANDOM 76 mg/dL (74-106)
[2017-07-30 07:29] LABS: PROTHROMBIN TIME (PATIENT) 22.6 SEC (9.98-11.88)
[2017-07-30 07:33] LABS: MCH 31.3 pg (25.7-33.7); MCHC 32.8 g/dl (32.0-35.9); MEAN CELL VOLUME 95.5 fl (80-96); MEAN PLT VOLUME 7.3 fl (7.5-11.1); PLATELET COUNT 375 K/MM3 (134-434); RDW 18.8 % (11.9-15.9); WHITE BLOOD COUNT 11.1 K/mm3 (4.0-10.0)
[2017-07-30] MEDS: CALCIUM ACETATE 667 MG CAPSULE (FP) PO SCH ×3 (08:00→18:30)
--- NOTE | 2017-07-30 10:06 | PN ---
Progress Note, Physician - Current Medication List Current Medications: Active Medications Amiodarone HCl (Cordarone -) 200 mg PO DAILY [facility] Last Admin: 07/29/17 10:14 Dose: 200 mg Bisacodyl (Dulcolax Suppository -) 10 mg RC DAILY PRN PRN Reason: CONSTIPATION Last Admin: 07/28/17 18:32 Dose: 10 mg Bupropion HCl (Wellbutrin Xl -) 300 mg PO DAILY [facility] Last Admin: 07/29/17 10:16 Dose: 300 mg Calcium Acetate (Phoslo -) 667 mg PO TIDCM [facility] Clonazepam (Klonopin -) 0.5 mg PO HS [facility] Last Admin: 07/29/17 21:57 Dose: 0.5 mg Docusate Sodium (Colace -) 100 mg PO DAILY [facility] Last Admin: 07/29/17 10:14 Dose: 100 mg Ergocalciferol (Drisdol -) 50,000 unit PO Th@1000 [facility] Gabapentin (Neurontin Oral Liquid -) 125 mg PO TID [facility] Last Admin: 07/30/17 06:06 Dose: Not Given Heparin Sodium (Porcine) (Heparin -) 1,000 unit IVPUSH PRN PRN PRN Reason: Heparin Last Admin: 07/29/17 10:30 Dose: 1,000 unit Heparin Sodium (Porcine) (Heparin -) 5,000 unit IVPUSH PRN PRN PRN Reason: Heparin Heparin Sodium/Dextrose (Heparin Infusion -) 25,000 units in 500 mls @ 20 mls/ hr IVPB TITR DEEPA; 1,000 UNITS/HR PRN Reason: Protocol Last Admin: 07/29/17 18:00 Dose: 1,200 units/hr, 24 mls/hr Methylnaltrexone [place] (Relistor -) 6 mg SQ DAILY PRN PRN Reason: constipation Metoprolol Succinate (Toprol Xl -) 25 mg PO DAILY [facility] Last Admin: 07/29/17 10:14 Dose: 25 mg Midodrine (Proamatine -) 5 mg PO TID-MID [facility] Last Admin: 07/29/17 18:44 Dose: 5 mg Morphine Sulfate (Msir -) 15 mg PO Q6H PRN PRN Reason: MODERATE PAIN Nystatin (Mycostatin Cream -) 1 applic TP BID [facility] Last Admin: 07/29/17 21:59 Dose: 1 applic Pantoprazole Sodium (Protonix -) 40 mg PO DAILY [facility] Last Admin: 07/29/17 10:14 Dose: 40 mg Polyethylene Glycol (Miralax (For Daily Use) -) 17 gm PO DAILY PRN PRN Reason: CONSTIPATION Prednisone (Deltasone -) 5 mg PO DAILY [facility] Last Admin: 07/29/17 10:13 Dose: 5 mg - Objective Vital Signs: Vital Signs Temperature 98.7 F 07/30/17 02:00 Pulse Rate 78 07/30/17 06:00 Respiratory Rate 20 07/30/17 06:00 Blood Pressure 172/75 07/30/17 06:00 O2 Sat by Pulse Oximetry (%) 100 07/29/17 21:00 Labs: CBC, BMP 07/30/17 06:30 07/30/17 06:30 INR, PTT INR 2.00 (0.82-1.09) H 07/30/17 06:30 Problem List - Problems (1) Acute posthemorrhagic anemia Code(s): D62 - ACUTE POSTHEMORRHAGIC ANEMIA (2) History of fracture of left hip Code(s): Z87.81 - PERSONAL HISTORY OF (HEALED) TRAUMATIC FRACTURE (3) End stage kidney disease Code(s): N18.6 - END STAGE RENAL DISEASE (4) Hematoma of hip Code(s): S70.00XA - CONTUSION OF UNSPECIFIED HIP, INITIAL ENCOUNTER Qualifiers: Encounter type: initial encounter Laterality: left Qualified Code(s): S70.02XA - Contusion of left hip, initial encounter Assessment/Plan Surgery: Patient with multiple medical problems, comorbidities. Had bleeding into his pelvis and left hip , buttocks and thigh. Now active bleeding noted on CTA. Hematocrit is stable. No sign of vascular compromise to the extremity. Contained hematoma, not infected. No inteervention needed.
[2017-07-30] MEDS: ALPRAZolam 0.25 MG TABLET PO PRN (10:36)
[2017-07-30] MEDS: PANTOPRAZOLE 40 MG TABLET (FP) PO SCH (10:37)
[2017-07-30] MEDS: NYSTATIN 100,000 UNIT/GM TOPICAL CREAM 15 GM TUBE TP SCH ×2 (10:37→22:28)
[2017-07-30] MEDS: METOPROLOL SUCCINATE 25 MG TAB.SR.24H (FP) PO SCH (10:37)
[2017-07-30] MEDS: DOCUSATE SODIUM 100 MG CAPSULE (FP) PO SCH (10:37)
[2017-07-30] MEDS: AMIODARONE HCL 200 MG TABLET (FP) PO SCH (10:37)
[2017-07-30] MEDS: predniSONE 5 MG TABLET (UD) PO SCH (10:38)
[2017-07-30] MEDS: MIDODRINE HCL 5 MG TABLET PO SCH ×3 (10:38→18:30)
[2017-07-30] MEDS: HEPARIN INFUSION - 25,000 UNITS/500 ML INFUS.BAG IVPB SCH ×2 (10:55→20:21)
[2017-07-30] MEDS: HEPARIN NA (PORCINE) 5,000 UNITS/ML 1ML VIAL IVPUSH PRN ×2 (10:56→20:22)
--- NOTE | 2017-07-30 10:58 | PN ---
Progress Note, Physician Chief Complaint: c/o anxiety no distress has pain in left hip - Current Medication List Current Medications: Active Medications Alprazolam (Xanax -) 0.5 mg PO Q8H PRN PRN Reason: ANXIETY Last Admin: 07/30/17 10:36 Dose: 0.5 mg Amiodarone HCl (Cordarone -) 200 mg PO DAILY [facility] Last Admin: 07/30/17 10:37 Dose: 200 mg Bisacodyl (Dulcolax Suppository -) 10 mg RC DAILY PRN PRN Reason: CONSTIPATION Last Admin: 07/28/17 18:32 Dose: 10 mg Bupropion HCl (Wellbutrin Xl -) 300 mg PO DAILY [facility] Last Admin: 07/29/17 10:16 Dose: 300 mg Calcium Acetate (Phoslo -) 667 mg PO TIDCM [facility] Clonazepam (Klonopin -) 0.5 mg PO HS [facility] Last Admin: 07/29/17 21:57 Dose: 0.5 mg Docusate Sodium (Colace -) 100 mg PO DAILY [facility] Last Admin: 07/30/17 10:37 Dose: 100 mg Ergocalciferol (Drisdol -) 50,000 unit PO Th@1000 [facility] Gabapentin (Neurontin Oral Liquid -) 125 mg PO TID [facility] Last Admin: 07/30/17 06:06 Dose: Not Given Heparin Sodium (Porcine) (Heparin -) 1,000 unit IVPUSH PRN PRN PRN Reason: Heparin Last Admin: 07/30/17 10:56 Dose: 1,000 unit Heparin Sodium (Porcine) (Heparin -) 5,000 unit IVPUSH PRN PRN PRN Reason: Heparin Heparin Sodium/Dextrose (Heparin Infusion -) 25,000 units in 500 mls @ 20 mls/ hr IVPB TITR [facility]EEPA; 1,000 UNITS/HR PRN Reason: Protocol Last Admin: 07/30/17 10:55 Dose: 1,300 units/hr, 26 mls/hr Methylnaltrexone [place] (Relistor -) 6 mg SQ DAILY PRN PRN Reason: constipation Metoprolol Succinate (Toprol Xl -) 25 mg PO DAILY [facility] Last Admin: 07/30/17 10:37 Dose: 25 mg Midodrine (Proamatine -) 5 mg PO TID-MID [facility] Last Admin: 07/30/17 10:38 Dose: 5 mg Morphine Sulfate (Msir -) 15 mg PO Q6H PRN PRN Reason: MODERATE PAIN Nystatin (Mycostatin Cream -) 1 applic TP BID [facility] Last Admin: 07/30/17 10:37 Dose: 1 applic Pantoprazole Sodium (Protonix -) 40 mg PO DAILY [facility] Last Admin: 07/30/17 10:37 Dose: 40 mg Polyethylene Glycol (Miralax (For Daily Use) -) 17 gm PO DAILY PRN PRN Reason: CONSTIPATION Prednisone (Deltasone -) 5 mg PO DAILY [facility] Last Admin: 07/30/17 10:38 Dose: 5 mg - Objective Vital Signs: Vital Signs Temperature 98.7 F 07/30/17 02:00 Pulse Rate 78 07/30/17 06:00 Respiratory Rate 20 07/30/17 06:00 Blood Pressure 172/75 07/30/17 06:00 O2 Sat by Pulse Oximetry (%) 100 07/29/17 21:00 Constitutional: Yes: No Distress, Calm Cardiovascular: Yes: Pulse Irregular, Murmur, Other (systolic click +) Respiratory: Yes: CTA Bilaterally Gastrointestinal: Yes: Normal Bowel Sounds, Soft, Abdomen, Obese. No: Distention, Tenderness Extremities: Yes: Other (no increased widening of left hip) Edema: Yes Edema: LLE: 2+ Neurological: Yes: Alert, Oriented Labs: CBC, BMP 07/30/17 06:30 07/30/17 06:30 INR, PTT INR 2.00 (0.82-1.09) H 07/30/17 06:30 - ....Imaging Ultrasound: Report Reviewed (Echo noted) Problem List - Problems (1) A-fib Code(s): I48.91 - UNSPECIFIED ATRIAL FIBRILLATION Qualifiers: Atrial fibrillation type: persistent Qualified Code(s): I48.1 - Persistent atrial fibrillation (2) Anemia Code(s): D64.9 - ANEMIA, UNSPECIFIED Qualifiers: Anemia type: unspecified type Qualified Code(s): D64.9 - Anemia, unspecified (3) End stage kidney disease Code(s): N18.6 - END STAGE RENAL DISEASE (4) Heart valve replaced Code(s): Z95.2 - PRESENCE OF PROSTHETIC HEART VALVE (5) Hematoma of hip Code(s): S70.00XA - CONTUSION OF UNSPECIFIED HIP, INITIAL ENCOUNTER Qualifiers: Encounter type: initial encounter Laterality: left Qualified Code(s): S70.02XA - Contusion of left hip, initial encounter (6) History of fracture of left hip Code(s): Z87.81 - PERSONAL HISTORY OF (HEALED) TRAUMATIC FRACTURE (7) Hyperparathyroidism Code(s): E21.3 - HYPERPARATHYROIDISM, UNSPECIFIED (8) Hyperparathyroidism due to ESRD on dialysis Code(s): E21.3 - HYPERPARATHYROIDISM, UNSPECIFIED; N18.6 - END STAGE RENAL DISEASE; Z99.2 - DEPENDENCE ON RENAL DIALYSIS (9) Pathological fracture due to secondary osteoporosis Code(s): M80.80XA - OTH OSTEOPOR W CURRENT PATH FRACTURE, UNSP SITE, INIT (10) Renal transplant, status post Code(s): Z94.0 - KIDNEY TRANSPLANT STATUS Assessment/Plan Assessment/Plan ANEMIA - s/p 3 units of PRBC -? acute on chronic blood loss -left gluteal daniel hematoma on pelvic CT -- CTA -- NO EXTRAVASATION -coumadin on hold -asa on hold - on heparin drip -h/h currently stable -monitor cbc - awaiting transfer to [facility] -S/P Multiple mechanical valve replacement -currently Coumadin on hold -INR noted -awaiting bed availability at [facility] afib- rate controlled continue with medications monitor in telemetry Heparin infusion s/p left and right hip fractures s/p recent left hip ORIF 07/12- S/P prince prosthetic fracture- - orthopedic evaluation noted, xrays noted ESRD - S/P HD - M-W- - dr gonzalez following Osteoporosis secondary hyperparathyroidism DVT PPX- SCD Venous doppler done in [facility] negative for DVT= LEFT LEG
--- NOTE | 2017-07-30 11:14 | PN ---
Progress Note (short form) - Note Progress Note: Chief Complaint: Events noted, notes reviewed, complaining of persistent left thigh discomfort, upset about his inability to ambulate History of Present Illness: Seen and examined on telemetry. Events noted, notes reviewed, complaining of persistent left thigh discomfort, upset about his inability to ambulate Awaiting transfer to [facility] for further management and intervention - Current Medication List Current Medications Alprazolam (Xanax -) 0.5 mg PO Q8H PRN PRN Reason: ANXIETY Last Admin: 07/30/17 10:36 Dose: 0.5 mg Amiodarone HCl (Cordarone -) 200 mg PO DAILY [facility] Last Admin: 07/30/17 10:37 Dose: 200 mg Bisacodyl (Dulcolax Suppository -) 10 mg RC DAILY PRN PRN Reason: CONSTIPATION Last Admin: 07/28/17 18:32 Dose: 10 mg Bupropion HCl (Wellbutrin Xl -) 300 mg PO DAILY [facility] Last Admin: 07/29/17 10:16 Dose: 300 mg Calcium Acetate (Phoslo -) 667 mg PO TIDCM [facility] Clonazepam (Klonopin -) 0.5 mg PO HS [facility] Last Admin: 07/29/17 21:57 Dose: 0.5 mg Docusate Sodium (Colace -) 100 mg PO DAILY [facility] Last Admin: 07/30/17 10:37 Dose: 100 mg Ergocalciferol (Drisdol -) 50,000 unit PO Th@1000 [facility] Gabapentin (Neurontin Oral Liquid -) 125 mg PO TID [facility] Last Admin: 07/30/17 06:06 Dose: Not Given Heparin Sodium (Porcine) (Heparin -) 1,000 unit IVPUSH PRN PRN PRN Reason: Heparin Last Admin: 07/30/17 10:56 Dose: 1,000 unit Heparin Sodium (Porcine) (Heparin -) 5,000 unit IVPUSH PRN PRN PRN Reason: Heparin Heparin Sodium/Dextrose (Heparin Infusion -) 25,000 units in 500 mls @ 20 mls/ hr IVPB TITR DEEPA; 1,000 UNITS/HR PRN Reason: Protocol Last Admin: 07/30/17 10:55 Dose: 1,300 units/hr, 26 mls/hr Methylnaltrexone [place] (Relistor -) 6 mg SQ DAILY PRN PRN Reason: constipation Metoprolol Succinate (Toprol Xl -) 25 mg PO DAILY [facility] Last Admin: 07/30/17 10:37 Dose: 25 mg Midodrine (Proamatine -) 5 mg PO TID-MID [facility] Last Admin: 07/30/17 10:38 Dose: 5 mg Morphine Sulfate (Msir -) 15 mg PO Q6H PRN PRN Reason: MODERATE PAIN Nystatin (Mycostatin Cream -) 1 applic TP BID [facility] Last Admin: 07/30/17 10:37 Dose: 1 applic Pantoprazole Sodium (Protonix -) 40 mg PO DAILY [facility] Last Admin: 07/30/17 10:37 Dose: 40 mg Polyethylene Glycol (Miralax (For Daily Use) -) 17 gm PO DAILY PRN PRN Reason: CONSTIPATION Prednisone (Deltasone -) 5 mg PO DAILY [facility] Last Admin: 07/30/17 10:38 Dose: 5 mg - Review of Systems Constitutional: denies: Chills, Fever Cardiovascular: denies: Chest Pain, Palpitations, Shortness of Breath Respiratory: denies: Cough, Hemoptysis, Orthopnea, PND, SOB, SOB on Exertion Gastrointestinal: denies: Abdominal Pain, Constipation, Diarrhea, Melena, Nausea , Rectal Bleeding, Vomiting Genitourinary: denies: Dysuria, Hematuria Musculoskeletal: reports: Extremity Pain, Joint Pain Neurological: denies: Dizziness, Headache, Seizure, Syncope - Objective Vital Signs: Last Vital Signs Temp Pulse Resp BP Pulse Ox 98.7 F 78 20 172/75 100 07/30/17 02:00 07/30/17 06:00 07/30/17 06:00 07/30/17 06:00 07/29/17 21:00 Intake & Output 07/27/17 07/28/17 07/29/17 07/30/17 23:59 23:59 23:59 23:59 Intake Total 400 570 490 288 Balance 400 570 490 288 Weight 177 lb 6.4 oz Neck: Supple Negative JVD No Bruit Cardiovascular: Mechanical Clicks Regular Rate and Rhythm Grade 2/6 Systolic ejection Murmur Respiratory: Clear to A&P Bilaterally Gastrointestinal: Soft Benign Normal Bowel Sounds Extremities: No Edema Labs: CBC, BMP 07/30/17 06:30 07/30/17 06:30 Hepatic Panel Total Bilirubin 1.2 mg/dL (0.2-1.0) H D 07/27/17 06:00 AST 21 U/L (15-37) 07/27/17 06:00 ALT 10 U/L (12-78) L 07/27/17 06:00 Alkaline Phosphatase 269 U/L (45-117) H 07/27/17 06:00 Albumin 2.2 g/dl (3.4-5.0) L 07/27/17 06:00 INR, PTT INR 2.00 (0.82-1.09) H 07/30/17 06:30 Assessment/Plan ASSESSMENT: 1. Post bilateral hip surgeries with left gluteal daniel hematoma 2. Post AVR and MVR, mechanical prosthesis 3. Post TV repair 4. Paroxysmal atrial fibrillation post Cryo-MAZE 5. Anemia most likely related to above noted hematoma, post transfusion 6. ESRD on HD, history of horseshoe kidney and post renal transplant 7. Hyperparathyroidism PLAN: 1. Monitor CBC and transfuse as needed maintaining Hg equal or > 8.0 2. Continue Toprol XL with caution 3. Continue Amiodarone 4. Continue A/C with Heparin and eventually Coumadin therapy to be resumed once no additional intervention is planned 5. Continue Midodrine as prescribed to assist in BP maintenance during HD sessions 6. Await transfer to [facility] for further management Igor Godinez MD
[2017-07-30] MEDS ORDERED: PT OWN MED DRAWER 7, Y5N ONE ×3 (12:18→18:27)
--- NOTE | 2017-07-30 15:15 | PN ---
Progress Note, Physician History of Present Illness: Pt seen and examined at bedside. He is awake and alert. - Current Medication List Current Medications: Active Medications Alprazolam (Xanax -) 0.5 mg PO Q8H PRN PRN Reason: ANXIETY Last Admin: 07/30/17 10:36 Dose: 0.5 mg Amiodarone HCl (Cordarone -) 200 mg PO DAILY [facility] Last Admin: 07/30/17 10:37 Dose: 200 mg Bisacodyl (Dulcolax Suppository -) 10 mg RC DAILY PRN PRN Reason: CONSTIPATION Last Admin: 07/28/17 18:32 Dose: 10 mg Bupropion HCl (Wellbutrin Xl -) 300 mg PO DAILY [facility] Last Admin: 07/30/17 13:34 Dose: 300 mg Calcium Acetate (Phoslo -) 667 mg PO TIDCM [facility] Last Admin: 07/30/17 12:47 Dose: 667 mg Docusate Sodium (Colace -) 100 mg PO DAILY [facility] Last Admin: 07/30/17 10:37 Dose: 100 mg Ergocalciferol (Drisdol -) 50,000 unit PO Th@1000 [facility] Gabapentin (Neurontin Oral Liquid -) 125 mg PO TID [facility] Last Admin: 07/30/17 13:35 Dose: Not Given Heparin Sodium (Porcine) (Heparin -) 1,000 unit IVPUSH PRN PRN PRN Reason: Heparin Last Admin: 07/30/17 10:56 Dose: 1,000 unit Heparin Sodium (Porcine) (Heparin -) 5,000 unit IVPUSH PRN PRN PRN Reason: Heparin Heparin Sodium/Dextrose (Heparin Infusion -) 25,000 units in 500 mls @ 20 mls/ hr IVPB TITR [facility]; 1,000 UNITS/HR PRN Reason: Protocol Last Admin: 07/30/17 10:55 Dose: 1,300 units/hr, 26 mls/hr Methylnaltrexone [place] (Relistor -) 6 mg SQ DAILY PRN PRN Reason: constipation Metoprolol Succinate (Toprol Xl -) 25 mg PO DAILY [facility] Last Admin: 07/30/17 10:37 Dose: 25 mg Midodrine (Proamatine -) 5 mg PO TID-MID [facility] Last Admin: 07/30/17 13:34 Dose: 5 mg Morphine Sulfate (Msir -) 15 mg PO Q6H PRN PRN Reason: MODERATE PAIN Nystatin (Mycostatin Cream -) 1 applic TP BID [facility] Last Admin: 07/30/17 10:37 Dose: 1 applic Pantoprazole Sodium (Protonix -) 40 mg PO DAILY [facility] Last Admin: 07/30/17 10:37 Dose: 40 mg Polyethylene Glycol (Miralax (For Daily Use) -) 17 gm PO DAILY PRN PRN Reason: CONSTIPATION Prednisone (Deltasone -) 5 mg PO DAILY [facility] Last Admin: 07/30/17 10:38 Dose: 5 mg - Objective Vital Signs: Vital Signs Temperature 98 F 07/30/17 10:00 Pulse Rate 76 07/30/17 10:00 Respiratory Rate 22 07/30/17 10:00 Blood Pressure 111/64 07/30/17 10:00 O2 Sat by Pulse Oximetry (%) 97 07/30/17 09:00 Constitutional: Yes: Calm Eyes: Yes: Conjunctiva Clear HENT: Yes: Atraumatic Neck: Yes: Supple Cardiovascular: Yes: S1, S2 Respiratory: Yes: CTA Bilaterally Gastrointestinal: Yes: Normal Bowel Sounds, Soft Genitourinary: Yes: Incontinence Musculoskeletal: Yes: Muscle Weakness Edema: Yes Edema: LLE: 1+, RLE: 1+ Neurological: Yes: Oriented Psychiatric: Yes: Oriented Labs: CBC, BMP 07/30/17 06:30 07/30/17 06:30 INR, PTT INR 2.00 (0.82-1.09) H 07/30/17 06:30 Problem List - Problems (1) A-fib Code(s): I48.91 - UNSPECIFIED ATRIAL FIBRILLATION Qualifiers: Atrial fibrillation type: persistent Qualified Code(s): I48.1 - Persistent atrial fibrillation (2) Anemia Code(s): D64.9 - ANEMIA, UNSPECIFIED Qualifiers: Anemia type: unspecified type Qualified Code(s): D64.9 - Anemia, unspecified (3) End stage kidney disease Code(s): N18.6 - END STAGE RENAL DISEASE (4) Heart valve replaced Code(s): Z95.2 - PRESENCE OF PROSTHETIC HEART VALVE (5) Renal transplant, status post Code(s): Z94.0 - KIDNEY TRANSPLANT STATUS Assessment/Plan Current Medications Generic Name Dose Route Start Last Admin Trade Name Freq PRN Reason Stop Dose Admin Alprazolam 0.5 mg 07/30/17 10:10 07/30/17 10:36 Xanax - PO 0.5 mg Q8H PRN Administration ANXIETY Amiodarone HCl 200 mg 07/27/17 10:00 07/30/17 10:37 Cordarone - PO 200 mg DAILY [facility] Administration Bisacodyl 10 mg 07/28/17 16:01 07/28/17 18:32 Dulcolax Suppository - RC 10 mg DAILY PRN Administration CONSTIPATION Bupropion HCl 300 mg 07/27/17 10:00 07/30/17 13:34 Wellbutrin Xl - PO 300 mg DAILY [facility] Administration Calcium Acetate 667 mg 07/30/17 08:00 07/30/17 12:47 Phoslo - PO 667 mg TIDCM [facility] Administration Docusate Sodium 100 mg 07/27/17 10:00 07/30/17 10:37 Colace - PO 100 mg DAILY [facility] Administration Ergocalciferol 50,000 unit 08/01/17 10:00 Drisdol - PO Th@1000 [facility] Gabapentin 125 mg 07/26/17 22:00 07/30/17 13:35 Neurontin Oral Liquid - PO Not Given TID [facility] Heparin Sodium (Porcine) 1,000 unit 07/28/17 18:25 07/30/17 10:56 Heparin - IVPUSH 1,000 unit PRN PRN Administration Heparin Heparin Sodium (Porcine) 5,000 unit 07/28/17 18:25 Heparin - IVPUSH PRN PRN Heparin Heparin Sodium/Dextrose 25,000 units in 500 mls @ 20 mls/hr 07/28/17 18:30 10:55 Heparin Infusion - IVPB 1,300 units/hr TITR [facility]EE[facility] 26 mls/hr Protocol Administration 1,000 UNITS/HR Methylnaltrexone [place] 6 mg 07/27/17 13:28 Relistor - SQ DAILY PRN constipation Metoprolol Succinate 25 mg 07/27/17 10:00 07/30/17 10:37 Toprol Xl - PO 25 mg DAILY [facility] Administration Midodrine 5 mg 07/27/17 10:00 07/30/17 13:34 Proamatine - PO 5 mg TID-MID [facility] Administration Morphine Sulfate 15 mg 07/27/17 14:40 Msir - PO Q6H PRN MODERATE PAIN Nystatin 1 applic 07/27/17 16:30 07/30/17 10:37 Mycostatin Cream - TP 1 applic BID [facility] Administration Pantoprazole Sodium 40 mg 07/28/17 10:30 07/30/17 10:37 Protonix - PO 40 mg DAILY [facility] Administration Polyethylene Glycol 17 gm 07/28/17 09:53 Miralax (For Daily Use) - PO DAILY PRN CONSTIPATION Prednisone 5 mg 07/27/17 10:00 07/30/17 10:38 Deltasone - PO 5 mg DAILY [facility] Administration Impression 1. ESRD 2. anemia 3. a-fib 4. valvular heart disease 5. s/p hip replacement 6. hx kidney transplant 7. hx renal cell carcinoma 8. pleural effusion 9. left gluteus hematoma Plan - HD in am - pt is pending transfer to [place] - monitor labs - epogen for anemia - monitor hg - ortho follow up - monitor inr Dr Potts
[2017-07-30 19:40] LABS: MCHC 32.7 g/dl (32.0-35.9); MEAN CELL VOLUME 94.9 fl (80-96); MEAN PLT VOLUME 7.4 fl (7.5-11.1); PLATELET COUNT 366 K/MM3 (134-434); RDW 18.5 % (11.9-15.9); WHITE BLOOD COUNT 8.9 K/mm3 (4.0-10.0)
[2017-07-31] MEDS: morphine SULFATE IMMEDIATE RELEASE 30 MG TAB PO PRN (03:17)
[2017-07-31] MEDS: POLYETHYLENE GLYCOL 3350 119 GM BTL PO PRN (03:17)
[2017-07-31] MEDS: HEPARIN NA (PORCINE) 5,000 UNITS/ML 1ML VIAL IVPUSH PRN (04:19)
[2017-07-31] MEDS: GABAPENTIN 250 MG/5 ML ORAL SOLUTION, 470 ML BOTTLE PO SCH ×3 (06:22→21:11)
[2017-07-31] MEDS ORDERED: PT OWN MED DRAWER 7, Y5N ONE ×3 (09:57→18:57)
[2017-07-31] MEDS: CALCIUM ACETATE 667 MG CAPSULE (FP) PO SCH ×3 (10:00→18:59)
[2017-07-31] MEDS: NYSTATIN 100,000 UNIT/GM TOPICAL CREAM 15 GM TUBE TP SCH ×2 (10:00→21:13)
[2017-07-31] MEDS: MIDODRINE HCL 5 MG TABLET PO SCH ×3 (10:01→18:59)
[2017-07-31] MEDS: DOCUSATE SODIUM 100 MG CAPSULE (FP) PO SCH (10:01)
[2017-07-31] MEDS: METOPROLOL SUCCINATE 25 MG TAB.SR.24H (FP) PO SCH (10:01)
[2017-07-31] MEDS: AMIODARONE HCL 200 MG TABLET (FP) PO SCH (10:01)
[2017-07-31] MEDS: predniSONE 5 MG TABLET (UD) PO SCH (10:03)
[2017-07-31] MEDS: PANTOPRAZOLE 40 MG TABLET (FP) PO SCH (10:03)
--- NOTE | 2017-07-31 10:35 | PN ---
Progress Note, Physician Chief Complaint: c/o anxiety no distress has pain in left hip - Current Medication List Current Medications: Active Medications Alprazolam (Xanax -) 0.5 mg PO Q8H PRN PRN Reason: ANXIETY Last Admin: 07/30/17 10:36 Dose: 0.5 mg Amiodarone HCl (Cordarone -) 200 mg PO DAILY [facility] Last Admin: 07/31/17 10:01 Dose: 200 mg Bisacodyl (Dulcolax Suppository -) 10 mg RC DAILY PRN PRN Reason: CONSTIPATION Last Admin: 07/28/17 18:32 Dose: 10 mg Bupropion HCl (Wellbutrin Xl -) 300 mg PO DAILY [facility] Last Admin: 07/31/17 10:01 Dose: 300 mg Calcium Acetate (Phoslo -) 667 mg PO TIDCM [facility] Last Admin: 07/31/17 10:00 Dose: 667 mg Docusate Sodium (Colace -) 100 mg PO DAILY [facility] Last Admin: 07/31/17 10:01 Dose: 100 mg Epoetin [place] (Epogen -) 8,000 units IVPUSH ONCE ONE Stop: 07/31/17 15:16 Ergocalciferol (Drisdol -) 50,000 unit PO Th@1000 [facility] Gabapentin (Neurontin Oral Liquid -) 125 mg PO TID [facility] Last Admin: 07/31/17 06:22 Dose: Not Given Heparin Sodium (Porcine) (Heparin -) 1,000 unit IVPUSH PRN PRN PRN Reason: Heparin Last Admin: 07/31/17 04:19 Dose: 1,000 unit Heparin Sodium (Porcine) (Heparin -) 5,000 unit IVPUSH PRN PRN PRN Reason: Heparin Heparin Sodium/Dextrose (Heparin Infusion -) 25,000 units in 500 mls @ 20 mls/ hr IVPB TITR [facility]; 1,000 UNITS/HR PRN Reason: Protocol Last Titration: 07/31/17 04:16 Dose: 1,500 units/hr, 30 mls/hr Methylnaltrexone [place] (Relistor -) 6 mg SQ DAILY PRN PRN Reason: constipation Metoprolol Succinate (Toprol Xl -) 25 mg PO DAILY [facility] Last Admin: 07/31/17 10:01 Dose: 25 mg Midodrine (Proamatine -) 5 mg PO TID-MID [facility] Last Admin: 07/31/17 10:01 Dose: 5 mg Morphine Sulfate (Msir -) 15 mg PO Q6H PRN PRN Reason: MODERATE PAIN Last Admin: 07/31/17 03:17 Dose: 15 mg Nystatin (Mycostatin Cream -) 1 applic TP BID [facility] Last Admin: 07/31/17 10:00 Dose: 1 applic Pantoprazole Sodium (Protonix -) 40 mg PO DAILY [facility] Last Admin: 07/31/17 10:03 Dose: 40 mg Polyethylene Glycol (Miralax (For Daily Use) -) 17 gm PO DAILY PRN PRN Reason: CONSTIPATION Last Admin: 07/31/17 03:17 Dose: 17 gm Prednisone (Deltasone -) 5 mg PO DAILY [facility] Last Admin: 07/31/17 10:03 Dose: 5 mg - Objective Vital Signs: Vital Signs Temperature 98.6 F 07/31/17 06:00 Pulse Rate 74 07/31/17 06:00 Respiratory Rate 20 07/31/17 06:00 Blood Pressure 126/70 07/31/17 06:00 O2 Sat by Pulse Oximetry (%) 95 07/30/17 20:41 Constitutional: Yes: No Distress, Calm Cardiovascular: Yes: Pulse Irregular, Murmur (systolic click +), S1, S2 Respiratory: Yes: Diminished Gastrointestinal: Yes: Normal Bowel Sounds, Soft. No: Distention, Tenderness Extremities: Yes: External Rotation Edema: Yes Labs: CBC, BMP 07/30/17 13:15 07/30/17 06:30 INR, PTT INR 2.00 (0.82-1.09) H 07/30/17 06:30 Problem List - Problems (1) A-fib Code(s): I48.91 - UNSPECIFIED ATRIAL FIBRILLATION Qualifiers: Atrial fibrillation type: paroxysmal Qualified Code(s): I48.0 - Paroxysmal atrial fibrillation (2) Anemia Code(s): D64.9 - ANEMIA, UNSPECIFIED Qualifiers: Anemia type: unspecified type Qualified Code(s): D64.9 - Anemia, unspecified (3) End stage kidney disease Code(s): N18.6 - END STAGE RENAL DISEASE (4) Heart valve replaced Code(s): Z95.2 - PRESENCE OF PROSTHETIC HEART VALVE (5) Hematoma of hip Code(s): S70.00XA - CONTUSION OF UNSPECIFIED HIP, INITIAL ENCOUNTER Qualifiers: Encounter type: initial encounter Laterality: left Qualified Code(s): S70.02XA - Contusion of left hip, initial encounter (6) History of fracture of left hip Code(s): Z87.81 - PERSONAL HISTORY OF (HEALED) TRAUMATIC FRACTURE (7) Hyperparathyroidism Code(s): E21.3 - HYPERPARATHYROIDISM, UNSPECIFIED (8) Hyperparathyroidism due to ESRD on dialysis Code(s): E21.3 - HYPERPARATHYROIDISM, UNSPECIFIED; N18.6 - END STAGE RENAL DISEASE; Z99.2 - DEPENDENCE ON RENAL DIALYSIS (9) Pathological fracture due to secondary osteoporosis Code(s): M80.80XA - OTH OSTEOPOR W CUR[facility] (10) Renal transplant, status post Code(s): Z94.0 - KIDNEY TRANSPLANT STATUS Assessment/Plan Assessment/Plan ANEMIA - s/p 3 units of PRBC -? acute on chronic blood loss -left gluteal daniel hematoma on pelvic CT -- CTA -- NO EXTRAVASATION -coumadin on hold -asa on hold - on heparin drip -h/h currently stable -monitor cbc - awaiting transfer to [facility] -S/P Multiple mechanical valve replacement -currently Coumadin on hold -INR noted -awaiting bed availability at [facility] hospital afib- rate controlled continue with medications monitor in telemetry Heparin infusion s/p left and right hip fractures s/p recent left hip ORIF 07/12- S/P prince prosthetic fracture- - orthopedic evaluation noted, xrays noted ESRD - S/P HD - M-W- - dr gonzalez following Osteoporosis secondary hyperparathyroidism DVT PPX- SCD, Heparin drip Venous doppler done in [facility] negative for DVT= LEFT LEG
--- NOTE | 2017-07-31 10:56 | PN ---
Progress Note, Physician History of Present Illness: Awaiting transfer to [facility] for hematoma evacuation. Remains in SR. - Current Medication List Current Medications: Active Medications Alprazolam (Xanax -) 0.5 mg PO Q8H PRN PRN Reason: ANXIETY Last Admin: 07/30/17 10:36 Dose: 0.5 mg Amiodarone HCl (Cordarone -) 200 mg PO DAILY [facility] Last Admin: 07/31/17 10:01 Dose: 200 mg Bisacodyl (Dulcolax Suppository -) 10 mg RC DAILY PRN PRN Reason: CONSTIPATION Last Admin: 07/28/17 18:32 Dose: 10 mg Bupropion HCl (Wellbutrin Xl -) 300 mg PO DAILY [facility] Last Admin: 07/31/17 10:01 Dose: 300 mg Calcium Acetate (Phoslo -) 667 mg PO TIDCM [facility] Last Admin: 07/31/17 10:00 Dose: 667 mg Docusate Sodium (Colace -) 100 mg PO DAILY [facility] Last Admin: 07/31/17 10:01 Dose: 100 mg Epoetin [place] (Epogen -) 8,000 units IVPUSH ONCE ONE Stop: 07/31/17 15:16 Ergocalciferol (Drisdol -) 50,000 unit PO Th@1000 [facility] Gabapentin (Neurontin Oral Liquid -) 125 mg PO TID [facility] Last Admin: 07/31/17 06:22 Dose: Not Given Heparin Sodium (Porcine) (Heparin -) 1,000 unit IVPUSH PRN PRN PRN Reason: Heparin Last Admin: 07/31/17 04:19 Dose: 1,000 unit Heparin Sodium (Porcine) (Heparin -) 5,000 unit IVPUSH PRN PRN PRN Reason: Heparin Heparin Sodium/Dextrose (Heparin Infusion -) 25,000 units in 500 mls @ 20 mls/ hr IVPB TITR [facility]; 1,000 UNITS/HR PRN Reason: Protocol Last Titration: 07/31/17 04:16 Dose: 1,500 units/hr, 30 mls/hr Methylnaltrexone [place] (Relistor -) 6 mg SQ DAILY PRN PRN Reason: constipation Metoprolol Succinate (Toprol Xl -) 25 mg PO DAILY [facility] Last Admin: 07/31/17 10:01 Dose: 25 mg Midodrine (Proamatine -) 5 mg PO TID-MID [facility] Last Admin: 07/31/17 10:01 Dose: 5 mg Morphine Sulfate (Msir -) 15 mg PO Q6H PRN PRN Reason: MODERATE PAIN Last Admin: 07/31/17 03:17 Dose: 15 mg Nystatin (Mycostatin Cream -) 1 applic TP BID [facility] Last Admin: 07/31/17 10:00 Dose: 1 applic Pantoprazole Sodium (Protonix -) 40 mg PO DAILY [facility] Last Admin: 07/31/17 10:03 Dose: 40 mg Polyethylene Glycol (Miralax (For Daily Use) -) 17 gm PO DAILY PRN PRN Reason: CONSTIPATION Last Admin: 07/31/17 03:17 Dose: 17 gm Prednisone (Deltasone -) 5 mg PO DAILY [facility] Last Admin: 07/31/17 10:03 Dose: 5 mg - Objective Vital Signs: Vital Signs Temperature 98.6 F 07/31/17 06:00 Pulse Rate 74 07/31/17 06:00 Respiratory Rate 20 07/31/17 06:00 Blood Pressure 126/70 07/31/17 06:00 O2 Sat by Pulse Oximetry (%) 95 07/30/17 20:41 Constitutional: Yes: No Distress, Calm Neck: Yes: Supple Cardiovascular: Yes: Regular Rate and Rhythm, Other ([place] mechanical valve sounds) Respiratory: Yes: Regular, Diminished Gastrointestinal: Yes: Normal Bowel Sounds, Soft Edema: No Labs: CBC, BMP 07/30/17 13:15 07/30/17 06:30 INR, PTT INR 2.00 (0.82-1.09) H 07/30/17 06:30 Problem List - Problems (1) A-fib Code(s): I48.91 - UNSPECIFIED ATRIAL FIBRILLATION Qualifiers: Atrial fibrillation type: paroxysmal Qualified Code(s): I48.0 - Paroxysmal atrial fibrillation (2) ESRD on hemodialysis Code(s): N18.6 - END STAGE RENAL DISEASE; Z99.2 - DEPENDENCE ON RENAL DIALYSIS (3) H/O mitral valve replacement with mechanical valve Code(s): Z95.2 - PRESENCE OF PROSTHETIC HEART VALVE (5) Heart valve replaced Code(s): Z95.2 - PRESENCE OF PROSTHETIC HEART VALVE (6) Hematoma of hip Code(s): S70.00XA - CONTUSION OF UNSPECIFIED HIP, INITIAL ENCOUNTER Qualifiers: Encounter type: initial encounter Laterality: left Qualified Code(s): S70.02XA - Contusion of left hip, initial encounter (7) History of fracture of left hip Code(s): Z87.81 - PERSONAL HISTORY OF (HEALED) TRAUMATIC FRACTURE (8) Hx of aortic valve replacement, mechanical Code(s): Z95.2 - PRESENCE OF PROSTHETIC HEART VALVE (9) Hyperparathyroidism due to ESRD on dialysis Code(s): E21.3 - HYPERPARATHYROIDISM, UNSPECIFIED; N18.6 - END STAGE RENAL DISEASE; Z99.2 - DEPENDENCE ON RENAL DIALYSIS (10) Acute posthemorrhagic anemia Code(s): D62 - ACUTE POSTHEMORRHAGIC ANEMIA (11) Renal transplant, status post Code(s): Z94.0 - KIDNEY TRANSPLANT STATUS Assessment/Plan 1. Post bilateral hip surgeries with left gluteal daniel hematoma 2. Post AVR and MVR, mechanical prosthesis 3. Post TV repair 4. Paroxysmal atrial fibrillation post Cryo-MAZE 5. Anemia most likely related to above noted hematoma, post transfusion 6. ESRD on HD, history of horseshoe kidney and post renal transplant 7. Hyperparathyroidism PLAN: 1. Monitor CBC and transfuse as needed maintaining Hg equal or > 8.0 2. Continue Toprol XL 25 qd 3. Continue Amiodarone 200 qd 4. Continue A/C with Heparin gtt pending possible hematoma evacuation and eventually Coumadin therapy to be resumed once hemostasis has been achieved 5. Continue Midodrine as prescribed to assist in BP maintenance during HD sessions 6. Await transfer to [facility] for further management
--- NOTE | 2017-07-31 12:45 | PN ---
Progress Note, Physician History of Present Illness: Pt seen and examined at bedside. He is awake and alert. He denies shortness of breath. He is waiting to transfer to [place]. - Current Medication List Current Medications: Active Medications Alprazolam (Xanax -) 0.5 mg PO Q8H PRN PRN Reason: ANXIETY Last Admin: 07/30/17 10:36 Dose: 0.5 mg Amiodarone HCl (Cordarone -) 200 mg PO DAILY [facility] Last Admin: 07/31/17 10:01 Dose: 200 mg Bisacodyl (Dulcolax Suppository -) 10 mg RC DAILY PRN PRN Reason: CONSTIPATION Last Admin: 07/28/17 18:32 Dose: 10 mg Bupropion HCl (Wellbutrin Xl -) 300 mg PO DAILY [facility] Last Admin: 07/31/17 10:01 Dose: 300 mg Calcium Acetate (Phoslo -) 667 mg PO TIDCM [facility] Last Admin: 07/31/17 10:00 Dose: 667 mg Docusate Sodium (Colace -) 100 mg PO DAILY [facility] Last Admin: 07/31/17 10:01 Dose: 100 mg Epoetin Rudolph (Epogen -) 8,000 units IVPUSH ONCE ONE Stop: 07/31/17 15:16 Ergocalciferol (Drisdol -) 50,000 unit PO Th@1000 [facility] Gabapentin (Neurontin Oral Liquid -) 125 mg PO TID [facility] Last Admin: 07/31/17 06:22 Dose: Not Given Heparin Sodium (Porcine) (Heparin -) 1,000 unit IVPUSH PRN PRN PRN Reason: Heparin Last Admin: 07/31/17 04:19 Dose: 1,000 unit Heparin Sodium (Porcine) (Heparin -) 5,000 unit IVPUSH PRN PRN PRN Reason: Heparin Heparin Sodium/Dextrose (Heparin Infusion -) 25,000 units in 500 mls @ 20 mls/ hr IVPB TITR [facility]; 1,000 UNITS/HR PRN Reason: Protocol Last Titration: 07/31/17 04:16 Dose: 1,500 units/hr, 30 mls/hr Methylnaltrexone Redford (Relistor -) 6 mg SQ DAILY PRN PRN Reason: constipation Metoprolol Succinate (Toprol Xl -) 25 mg PO DAILY [facility] Last Admin: 07/31/17 10:01 Dose: 25 mg Midodrine (Proamatine -) 5 mg PO TID-MID [facility] Last Admin: 07/31/17 10:01 Dose: 5 mg Morphine Sulfate (Msir -) 15 mg PO Q6H PRN PRN Reason: MODERATE PAIN Last Admin: 07/31/17 03:17 Dose: 15 mg Nystatin (Mycostatin Cream -) 1 applic TP BID [facility] Last Admin: 07/31/17 10:00 Dose: 1 applic Pantoprazole Sodium (Protonix -) 40 mg PO DAILY [facility] Last Admin: 07/31/17 10:03 Dose: 40 mg Polyethylene Glycol (Miralax (For Daily Use) -) 17 gm PO DAILY PRN PRN Reason: CONSTIPATION Last Admin: 07/31/17 03:17 Dose: 17 gm Prednisone (Deltasone -) 5 mg PO DAILY [facility] Last Admin: 07/31/17 10:03 Dose: 5 mg - Objective Vital Signs: Vital Signs Temperature 98.6 F 07/31/17 06:00 Pulse Rate 74 07/31/17 06:00 Respiratory Rate 20 07/31/17 06:00 Blood Pressure 126/70 07/31/17 06:00 O2 Sat by Pulse Oximetry (%) 95 07/30/17 20:41 Constitutional: Yes: Calm Eyes: Yes: Conjunctiva Clear HENT: Yes: Atraumatic Cardiovascular: Yes: S1, S2 Respiratory: Yes: CTA Bilaterally Gastrointestinal: Yes: Soft Genitourinary: Yes: WNL Musculoskeletal: Yes: Other (hip pain) Edema: Yes Edema: LLE: 1+, RLE: 1+ Neurological: Yes: Oriented Psychiatric: Yes: Oriented Labs: CBC, BMP 07/30/17 13:15 07/30/17 06:30 INR, PTT INR 2.00 (0.82-1.09) H 07/30/17 06:30 Problem List - Problems (1) A-fib Code(s): I48.91 - UNSPECIFIED ATRIAL FIBRILLATION Qualifiers: Atrial fibrillation type: paroxysmal Qualified Code(s): I48.0 - Paroxysmal atrial fibrillation (2) Anemia Code(s): D64.9 - ANEMIA, UNSPECIFIED Qualifiers: Anemia type: unspecified type Qualified Code(s): D64.9 - Anemia, unspecified (3) End stage kidney disease Code(s): N18.6 - END STAGE RENAL DISEASE (4) Heart valve replaced Code(s): Z95.2 - PRESENCE OF PROSTHETIC HEART VALVE (5) Renal transplant, status post Code(s): Z94.0 - KIDNEY TRANSPLANT STATUS Assessment/Plan Current Medications Generic Name Dose Route Start Last Admin Trade Name Freq PRN Reason Stop Dose Admin Alprazolam 0.5 mg 07/30/17 10:10 07/30/17 10:36 Xanax - PO 0.5 mg Q8H PRN Administration ANXIETY Amiodarone HCl 200 mg 07/27/17 10:00 07/31/17 10:01 Cordarone - PO 200 mg DAILY [facility] Administration Bisacodyl 10 mg 07/28/17 16:01 07/28/17 18:32 Dulcolax Suppository - RC 10 mg DAILY PRN Administration CONSTIPATION Bupropion HCl 300 mg 07/27/17 10:00 07/31/17 10:01 Wellbutrin Xl - PO 300 mg DAILY [facility] Administration Calcium Acetate 667 mg 07/30/17 08:00 07/31/17 10:00 Phoslo - PO 667 mg TIDCM [facility] Administration Docusate Sodium 100 mg 07/27/17 10:00 07/31/17 10:01 Colace - PO 100 mg DAILY [facility] Administration Epoetin Rudolph 8,000 units 07/31/17 15:15 Epogen - IVPUSH 07/31/17 15:16 ONCE ONE Ergocalciferol 50,000 unit 08/01/17 10:00 Drisdol - PO Th@1000 [facility] Gabapentin 125 mg 07/26/17 22:00 07/31/17 06:22 Neurontin Oral Liquid - PO Not Given TID [facility] Heparin Sodium (Porcine) 1,000 unit 07/28/17 18:25 07/31/17 04:19 Heparin - IVPUSH 1,000 unit PRN PRN Administration Heparin Heparin Sodium (Porcine) 5,000 unit 07/28/17 18:25 Heparin - IVPUSH PRN PRN Heparin Heparin Sodium/Dextrose 25,000 units in 500 mls @ 20 mls/hr 07/28/17 18:30 04:16 Heparin Infusion - IVPB 1,500 units/hr TITR [facility] 30 mls/hr Protocol Titration 1,000 UNITS/HR Methylnaltrexone [place] 6 mg 07/27/17 13:28 Relistor - SQ DAILY PRN constipation Metoprolol Succinate 25 mg 07/27/17 10:00 07/31/17 10:01 Toprol Xl - PO 25 mg DAILY [facility] Administration Midodrine 5 mg 07/27/17 10:00 07/31/17 10:01 Proamatine - PO 5 mg TID-MID [facility] Administration Morphine Sulfate 15 mg 07/27/17 14:40 07/31/17 03:17 Msir - PO 15 mg Q6H PRN Administration MODERATE PAIN Nystatin 1 applic 07/27/17 16:30 07/31/17 10:00 Mycostatin Cream - TP 1 applic BID [facility] Administration Pantoprazole Sodium 40 mg 07/28/17 10:30 07/31/17 10:03 Protonix - PO 40 mg DAILY [facility] Administration Polyethylene Glycol 17 gm 07/28/17 09:53 07/31/17 03:17 Miralax (For Daily Use) - PO 17 gm DAILY PRN Administration CONSTIPATION Prednisone 5 mg 07/27/17 10:00 07/31/17 10:03 Deltasone - PO 5 mg DAILY [facility] Administration Impression 1. ESRD 2. anemia 3. a-fib 4. valvular heart disease 5. s/p hip replacement 6. hx kidney transplant 7. hx renal cell carcinoma 8. pleural effusion 9. left gluteus hematoma Plan - pt for HD today - pt is pending transfer to [facility] - monitor labs - epogen for anemia - ortho follow up - monitor inr Dr Potts
[2017-07-31] MEDS ORDERED: EPOETIN ALFA 2,000 UNITS/1 ML VIAL IVPUSH ONE ×2 (15:15→16:30)
[2017-07-31 15:41] LABS: MCH 31.4 pg (25.7-33.7); MEAN CELL VOLUME 94.9 fl (80-96); MEAN PLT VOLUME 7.5 fl (7.5-11.1); PLATELET COUNT 320 K/MM3 (134-434); RDW 18.4 % (11.9-15.9); WHITE BLOOD COUNT 10.1 K/mm3 (4.0-10.0)
[2017-07-31 16:00] LABS: ANION GAP 11 (8-16); CALCIUM 7.9 mg/dL (8.5-10.1); CO2 28 mmol/L (21-32); CREATININE 4.7 mg/dL (0.7-1.3); GLUCOSE,RANDOM 110 mg/dL (74-106)
[2017-07-31 16:57] LABS: INR 2.08 (0.82-1.09); PROTHROMBIN TIME (PATIENT) 23.5 SEC (9.98-11.88)
[2017-07-31 17:00] LABS: ACTIVATED PTT 39.5 SECONDS (26.9-34.4)
[2017-07-31] MEDS: HEPARIN INFUSION - 25,000 UNITS/500 ML INFUS.BAG IVPB SCH (18:59)
[2017-07-31] MEDS: ALPRAZolam 0.25 MG TABLET PO PRN (20:05)
[2017-07-31] MEDS: BISACODYL 10 MG SUPP.RECT RC PRN (23:26)
[2017-08-01] MEDS: ALPRAZolam 0.25 MG TABLET PO PRN ×2 (03:34→17:59)
[2017-08-01] MEDS: morphine SULFATE IMMEDIATE RELEASE 30 MG TAB PO PRN ×3 (04:01→23:13)
[2017-08-01] MEDS: GABAPENTIN 250 MG/5 ML ORAL SOLUTION, 470 ML BOTTLE PO SCH ×3 (06:18→21:16)
[2017-08-01 07:10] LABS: MCH 30.1 pg (25.7-33.7); MCHC 33.1 g/dl (32.0-35.9); MEAN CELL VOLUME 90.8 fl (80-96); MEAN PLT VOLUME 7.4 fl (7.5-11.1); PLATELET COUNT 302 K/MM3 (134-434); WHITE BLOOD COUNT 11.1 K/mm3 (4.0-10.0)
[2017-08-01] MEDS: CALCIUM ACETATE 667 MG CAPSULE (FP) PO SCH ×3 (08:05→17:58)
[2017-08-01 08:10] LABS: INR 2.04 (0.82-1.09); PROTHROMBIN TIME (PATIENT) 23.1 SEC (9.98-11.88)
[2017-08-01] MEDS ORDERED: PT OWN MED DRAWER 7, Y5N ONE (09:12)
[2017-08-01] MEDS: HEPARIN INFUSION - 25,000 UNITS/500 ML INFUS.BAG IVPB SCH ×2 (09:54→17:58)
[2017-08-01] MEDS: HEPARIN NA (PORCINE) 5,000 UNITS/ML 1ML VIAL IVPUSH PRN ×2 (09:58→17:59)
[2017-08-01] MEDS: PANTOPRAZOLE 40 MG TABLET (FP) PO SCH (09:59)
[2017-08-01] MEDS: predniSONE 5 MG TABLET (UD) PO SCH (09:59)
[2017-08-01] MEDS: AMIODARONE HCL 200 MG TABLET (FP) PO SCH (09:59)
[2017-08-01] MEDS: METOPROLOL SUCCINATE 25 MG TAB.SR.24H (FP) PO SCH (09:59)
[2017-08-01] MEDS: DOCUSATE SODIUM 100 MG CAPSULE (FP) PO SCH (09:59)
[2017-08-01] MEDS: MIDODRINE HCL 5 MG TABLET PO SCH ×3 (10:00→17:58)
[2017-08-01] MEDS ORDERED: ERGOCALCIFEROL (VITAMIN D2) 50,000 UNIT CAPSULE (FP) PO SCH (10:00)
[2017-08-01] MEDS: NYSTATIN 100,000 UNIT/GM TOPICAL CREAM 15 GM TUBE TP SCH ×2 (10:01→23:19)
--- NOTE | 2017-08-01 11:02 | PN ---
Progress Note, Physician Chief Complaint: Complains of left thigh pain History of Present Illness: Patient was seen and examined. Awake and alert. Chart was reviewed Denies chest pain, SOB or palpitations - Current Medication List Current Medications: Active Medications Alprazolam (Xanax -) 0.5 mg PO Q8H PRN PRN Reason: ANXIETY Last Admin: 08/01/17 03:34 Dose: 0.5 mg Amiodarone HCl (Cordarone -) 200 mg PO DAILY [facility] Last Admin: 08/01/17 09:59 Dose: 200 mg Bisacodyl (Dulcolax Suppository -) 10 mg RC DAILY PRN PRN Reason: CONSTIPATION Last Admin: 07/31/17 23:26 Dose: 10 mg Bupropion HCl (Wellbutrin Xl -) 300 mg PO DAILY [facility] Last Admin: 08/01/17 10:00 Dose: 300 mg Calcium Acetate (Phoslo -) 667 mg PO TIDCM [facility] Last Admin: 08/01/17 08:05 Dose: 667 mg Docusate Sodium (Colace -) 100 mg PO DAILY [facility] Last Admin: 08/01/17 09:59 Dose: 100 mg Ergocalciferol (Drisdol -) 50,000 unit PO Th@1000 [facility] Last Admin: 08/01/17 10:00 Dose: 50,000 unit Gabapentin (Neurontin Oral Liquid -) 125 mg PO TID [facility] Last Admin: 08/01/17 06:18 Dose: Not Given Heparin Sodium (Porcine) (Heparin -) 1,000 unit IVPUSH PRN PRN PRN Reason: Heparin Last Admin: 08/01/17 09:58 Dose: 1,000 unit Heparin Sodium (Porcine) (Heparin -) 5,000 unit IVPUSH PRN PRN PRN Reason: Heparin Last Admin: 07/31/17 18:59 Dose: 5,000 unit Heparin Sodium/Dextrose (Heparin Infusion -) 25,000 units in 500 mls @ 20 mls/ hr IVPB TITR [facility]; 1,000 UNITS/HR PRN Reason: Protocol Last Admin: 08/01/17 09:54 Dose: 1,750 units/hr, 35 mls/hr Methylnaltrexone [place]itt (Relistor -) 6 mg SQ DAILY PRN PRN Reason: constipation Metoprolol Succinate (Toprol Xl -) 25 mg PO DAILY [facility] Last Admin: 08/01/17 09:59 Dose: 25 mg Midodrine (Proamatine -) 5 mg PO TID-MID [facility] Last Admin: 08/01/17 10:00 Dose: 5 mg Morphine Sulfate (Msir -) 15 mg PO Q6H PRN PRN Reason: MODERATE PAIN Last Admin: 08/01/17 04:01 Dose: 15 mg Nystatin (Mycostatin Cream -) 1 applic TP BID [facility] Last Admin: 08/01/17 10:01 Dose: 1 applic Pantoprazole Sodium (Protonix -) 40 mg PO DAILY [facility] Last Admin: 08/01/17 09:59 Dose: 40 mg Polyethylene Glycol (Miralax (For Daily Use) -) 17 gm PO DAILY PRN PRN Reason: CONSTIPATION Last Admin: 07/31/17 03:17 Dose: 17 gm Prednisone (Deltasone -) 5 mg PO DAILY [facility] Last Admin: 08/01/17 09:59 Dose: 5 mg - Objective Vital Signs: Vital Signs Temperature 98.4 F 08/01/17 08:00 Pulse Rate 78 08/01/17 08:00 Respiratory Rate 16 08/01/17 08:00 Blood Pressure 108/60 08/01/17 08:00 O2 Sat by Pulse Oximetry (%) 100 07/31/17 21:00 Neck: Yes: Supple Cardiovascular: Yes: Pulse Irregular, Murmur (2/6 JESUS), S1, S2, Other ( Mechanical click) Respiratory: Yes: CTA Bilaterally Gastrointestinal: Yes: Normal Bowel Sounds, Soft. No: Tenderness Edema: Yes Labs: CBC, BMP 08/01/17 05:05 07/31/17 15:00 INR, PTT INR 2.04 (0.82-1.09) H 08/01/17 05:05 Problem List - Problems (1) A-fib Code(s): I48.91 - UNSPECIFIED ATRIAL FIBRILLATION Qualifiers: Atrial fibrillation type: paroxysmal Qualified Code(s): I48.0 - Paroxysmal atrial fibrillation (2) Acute posthemorrhagic anemia Code(s): D62 - ACUTE POSTHEMORRHAGIC ANEMIA (3) ESRD on hemodialysis Code(s): N18.6 - END STAGE RENAL DISEASE; Z99.2 - DEPENDENCE ON RENAL DIALYSIS (4) H/O mitral valve replacement with mechanical valve Code(s): Z95.2 - PRESENCE OF PROSTHETIC HEART VALVE (6) History of fracture of left hip Code(s): Z87.81 - PERSONAL HISTORY OF (HEALED) TRAUMATIC FRACTURE (7) History of fracture of left hip Code(s): Z87.81 - PERSONAL HISTORY OF (HEALED) TRAUMATIC FRACTURE (8) Hx of aortic valve replacement, mechanical Code(s): Z95.2 - PRESENCE OF PROSTHETIC HEART VALVE (9) Hyperparathyroidism Code(s): E21.3 - HYPERPARATHYROIDISM, UNSPECIFIED (10) Osteoporosis Code(s): M81.0 - AGE-RELATED OSTEOPOROSIS W/O CURRENT PATHOLOGICAL FRACTURE Qualifiers: Osteoporosis type: unspecified Presence of current pathological fracture: with current pathological fracture Encounter type: initial encounter Qualified Code(s): M80.00XA - Age-related osteoporosis with current pathological fracture, unspecified site, initial encounter for fracture (11) Pathological fracture due to secondary osteoporosis Code(s): M80.80XA - OTH OSTEOPOR W CURRENT PATH FRACTURE, UNSP SITE, INIT (12) Renal transplant, status post Code(s): Z94.0 - KIDNEY TRANSPLANT STATUS Assessment/Plan 1. Post bilateral hip surgeries - recent now with left gluteal daniel hematoma 2. Anemia - possible blood loss due to above, post transfusion 3. ESRD on HD, history of horseshoe kidney and renal transplant 4. AVR - mechanical prosthesis, MVR - mechanical prosthesis and TV repair 5. Atrial fibrillation s/p MAZE 6. Hyperparathyroidism 7. Osteoporosis PLAN: 1. Monitor CBC and transfuse PRBC as needed 2. Orthopedic, Vascular and general surgery input noted 3. Continue Metoprolol 4. Coumadin has been held. Continue Heparin drip 5. Await transferring patient to [facility] for further management of the hip Further plans are to follow Qamar Solorio MD
--- NOTE | 2017-08-01 12:11 | PN ---
Progress Note (short form) - Note Progress Note: patient seen in his room this morning c/o pain left hip dressing removed and examined the hip- chayo intact, but bloody discharge from the hip edema overall looks better in both legs awaiting transfer to [facility] Discussed with transfer center today- they will give us updates pending VRE SCREEN Vital Signs Period Temp Pulse Resp BP Sys/Deng Pulse Ox Last 24 Hr 97.8 F-99.9 F 67-99 16-20 106-151/41-80 100-100 Laboratory Results - last 24 hr 07/31/17 07/31/17 07/31/17 15:00 15:00 15:00 WBC 10.1 H RBC 2.29 L Hgb 7.2 L D Hct 21.7 L MCV 94.9 MCH 31.4 MCHC 33.0 RDW 18.4 H Plt Count 320 MPV 7.5 PT with INR Cancelled 23.50 H INR Cancelled 2.08 H PTT (Actin FS) 39.5 H Sodium Potassium Chloride Carbon Dioxide Anion Gap BUN Creatinine Random Glucose Calcium Blood Type Antibody Screen Crossmatch 07/31/17 07/31/17 07/31/17 15:00 15:00 21:50 WBC RBC Hgb Hct MCV MCH MCHC RDW Plt Count MPV PT with INR INR PTT (Actin FS) 59.3 H D Sodium 135 L Potassium 4.4 Chloride 96 L Carbon Dioxide 28 Anion Gap 11 BUN 29 H D Creatinine 4.7 H D Random Glucose 110 H D Calcium 7.9 L Blood Type O POSITIVE Antibody Screen Negative Crossmatch See Detail 08/01/17 08/01/17 08/01/17 05:05 05:05 05:05 WBC 11.1 H RBC 2.59 L Hgb 7.8 L Hct 23.5 L MCV 90.8 MCH 30.1 MCHC 33.1 RDW 23.0 H D Plt Count 302 MPV 7.4 L PT with INR 23.10 H INR 2.04 H PTT (Actin FS) 40.4 H D Sodium Potassium Chloride Carbon Dioxide Anion Gap BUN Creatinine Random Glucose Calcium Blood Type Antibody Screen Crossmatch Active Medications Alprazolam (Xanax -) 0.5 mg PO Q8H PRN PRN Reason: ANXIETY Last Admin: 08/01/17 03:34 Dose: 0.5 mg Amiodarone HCl (Cordarone -) 200 mg PO DAILY [facility] Last Admin: 08/01/17 09:59 Dose: 200 mg Bisacodyl (Dulcolax Suppository -) 10 mg RC DAILY PRN PRN Reason: CONSTIPATION Last Admin: 07/31/17 23:26 Dose: 10 mg Bupropion HCl (Wellbutrin Xl -) 300 mg PO DAILY [facility] Last Admin: 08/01/17 10:00 Dose: 300 mg Calcium Acetate (Phoslo -) 667 mg PO TIDCM [facility] Last Admin: 08/01/17 08:05 Dose: 667 mg Docusate Sodium (Colace -) 100 mg PO DAILY [facility] Last Admin: 08/01/17 09:59 Dose: 100 mg Ergocalciferol (Drisdol -) 50,000 unit PO Th@1000 [facility] Last Admin: 08/01/17 10:00 Dose: 50,000 unit Gabapentin (Neurontin Oral Liquid -) 125 mg PO TID [facility] Last Admin: 08/01/17 06:18 Dose: Not Given Heparin Sodium (Porcine) (Heparin -) 1,000 unit IVPUSH PRN PRN PRN Reason: Heparin Last Admin: 08/01/17 09:58 Dose: 1,000 unit Heparin Sodium (Porcine) (Heparin -) 5,000 unit IVPUSH PRN PRN PRN Reason: Heparin Last Admin: 07/31/17 18:59 Dose: 5,000 unit Heparin Sodium/Dextrose (Heparin Infusion -) 25,000 units in 500 mls @ 20 mls/ hr IVPB TITR [facility]; 1,000 UNITS/HR PRN Reason: Protocol Last Admin: 08/01/17 09:54 Dose: 1,750 units/hr, 35 mls/hr Methylnaltrexone [place] (Relistor -) 6 mg SQ DAILY PRN PRN Reason: constipation Metoprolol Succinate (Toprol Xl -) 25 mg PO DAILY [facility] Last Admin: 08/01/17 09:59 Dose: 25 mg Midodrine (Proamatine -) 5 mg PO TID-MID [facility] Last Admin: 08/01/17 10:00 Dose: 5 mg Morphine Sulfate (Msir -) 15 mg PO Q6H PRN PRN Reason: MODERATE PAIN Last Admin: 08/01/17 04:01 Dose: 15 mg Nystatin (Mycostatin Cream -) 1 applic TP BID [facility] Last Admin: 08/01/17 10:01 Dose: 1 applic Pantoprazole Sodium (Protonix -) 40 mg PO DAILY [facility] Last Admin: 08/01/17 09:59 Dose: 40 mg Polyethylene Glycol (Miralax (For Daily Use) -) 17 gm PO DAILY PRN PRN Reason: CONSTIPATION Last Admin: 07/31/17 03:17 Dose: 17 gm Prednisone (Deltasone -) 5 mg PO DAILY [facility] Last Admin: 08/01/17 09:59 Dose: 5 mg ANEMIA STATUS POST MULTIPLE TRANSFUSIONS blood loss acute most likely from the hematoma as seen on CT left gluteal daniel hematoma on pelvic CT CTA -NO EXTRAVASATION coumadin on hold asa on hold ONLY on heparin drip -monitor cbc - awaiting transfer to [facility] -CBC acceptable range currently -may need to transfuse tomorrow during HD -S/P Multiple mechanical valve replacement -currently Coumadin on hold -awaiting bed availability at [facility] -Cardiology following -on heparin drip -afib- rate controlled continue with medications monitor in telemetry Heparin infusion s/p left and right hip fractures s/p recent left hip ORIF 07/12- S/P prince prosthetic fracture- recent multiple orthopedic procedures - orthopedic evaluation noted, xrays noted ESRD on HD - -- - dr gonzalez following Osteoporosis secondary hyperparathyroidism DVT PPX- SCD, Heparin drip Venous doppler done in [facility] negative for DVT= LEFT LEG Problem List - Problems (1) Hematoma of hip Code(s): S70.00XA - CONTUSION OF UNSPECIFIED HIP, INITIAL ENCOUNTER Qualifiers: Encounter type: initial encounter Laterality: left Qualified Code(s): S70.02XA - Contusion of left hip, initial encounter (2) History of fracture of left hip Code(s): Z87.81 - PERSONAL HISTORY OF (HEALED) TRAUMATIC FRACTURE (3) A-fib Code(s): I48.91 - UNSPECIFIED ATRIAL FIBRILLATION Qualifiers: Atrial fibrillation type: paroxysmal Qualified Code(s): I48.0 - Paroxysmal atrial fibrillation (4) Anemia Code(s): D64.9 - ANEMIA, UNSPECIFIED Qualifiers: Anemia type: unspecified type Qualified Code(s): D64.9 - Anemia, unspecified (5) End stage kidney disease Code(s): N18.6 - END STAGE RENAL DISEASE (6) Heart valve replaced Code(s): Z95.2 - PRESENCE OF PROSTHETIC HEART VALVE (7) Renal transplant, status post Code(s): Z94.0 - KIDNEY TRANSPLANT STATUS (8) Pathological fracture due to secondary osteoporosis Code(s): M80.80XA - OTH OSTEOPOR W CURRENT PATH FRACTURE, UNSP SITE, INIT (9) Hyperparathyroidism Code(s): E21.3 - HYPERPARATHYROIDISM, UNSPECIFIED (10) Hyperparathyroidism due to ESRD on dialysis Code(s): E21.3 - HYPERPARATHYROIDISM, UNSPECIFIED; N18.6 - END STAGE RENAL DISEASE; Z99.2 - DEPENDENCE ON RENAL DIALYSIS
--- NOTE | 2017-08-01 12:24 | PN ---
Progress Note (short form) - Note Progress Note: Pt examined along side [employer] ANALYST Serena Agree with findings and plan Transfusion yesterday has pain in left hip Vital Signs - 24 hr 07/31/17 07/31/17 07/31/17 14:00 14:40 14:45 Temperature 98.8 F 98.8 F Pulse Rate 75 79 78 Respiratory 18 18 Rate Blood Pressure 117/67 142/69 132/68 O2 Sat by Pulse Oximetry (%) 07/31/17 07/31/17 07/31/17 15:15 15:45 16:15 Temperature Pulse Rate 99 H 77 80 Respiratory 18 18 18 Rate Blood Pressure 106/80 122/65 130/41 O2 Sat by Pulse Oximetry (%) 07/31/17 07/31/17 07/31/17 16:45 17:00 17:15 Temperature 97.8 F Pulse Rate 67 67 81 Respiratory 18 18 18 Rate Blood Pressure 140/67 140/67 142/47 O2 Sat by Pulse Oximetry (%) 07/31/17 07/31/17 07/31/17 17:45 18:15 18:20 Temperature Pulse Rate 80 78 81 Respiratory 18 18 18 Rate Blood Pressure 151/50 133/67 142/77 O2 Sat by Pulse Oximetry (%) 07/31/17 07/31/17 08/01/17 21:00 21:09 02:00 Temperature 99.9 F H 98.7 F Pulse Rate 85 81 Respiratory 20 20 Rate Blood Pressure 121/72 120/70 O2 Sat by Pulse 100 Oximetry (%) 08/01/17 08/01/17 08/01/17 05:17 08:00 09:00 Temperature 98.2 F 98.4 F Pulse Rate 79 78 Respiratory 18 16 16 Rate Blood Pressure 118/62 108/60 O2 Sat by Pulse 100 Oximetry (%) Current Medications Generic Name Dose Route Start Last Admin Trade Name Freq PRN Reason Stop Dose Admin Alprazolam 0.5 mg 07/30/17 10:10 08/01/17 03:34 Xanax - PO 0.5 mg Q8H PRN Administration ANXIETY Amiodarone HCl 200 mg 07/27/17 10:00 08/01/17 09:59 Cordarone - PO 200 mg DAILY [facility] Administration Bisacodyl 10 mg 07/28/17 16:01 07/31/17 23:26 Dulcolax Suppository - RC 10 mg DAILY PRN Administration CONSTIPATION Bupropion HCl 300 mg 07/27/17 10:00 08/01/17 10:00 Wellbutrin Xl - PO 300 mg DAILY [facility] Administration Calcium Acetate 667 mg 07/30/17 08:00 08/01/17 08:05 Phoslo - PO 667 mg TIDCM [facility] Administration Docusate Sodium 100 mg 07/27/17 10:00 08/01/17 09:59 Colace - PO 100 mg DAILY [facility] Administration Epoetin Rudolph 10,000 units 08/02/17 12:25 Epogen - IVPUSH 08/02/17 12:26 ONCE ONE Ergocalciferol 50,000 unit 08/01/17 10:00 08/01/17 10:00 Drisdol - PO 50,000 unit Th@1000 [facility] Administration Gabapentin 125 mg 07/26/17 22:00 08/01/17 06:18 Neurontin Oral Liquid - PO Not Given TID [facility] Heparin Sodium (Porcine) 1,000 unit 07/28/17 18:25 08/01/17 09:58 Heparin - IVPUSH 1,000 unit PRN PRN Administration Heparin Heparin Sodium (Porcine) 5,000 unit 07/28/17 18:25 07/31/17 18:59 Heparin - IVPUSH 5,000 unit PRN PRN Administration Heparin Heparin Sodium/Dextrose 25,000 units in 500 mls @ 20 mls/hr 07/28/17 18:30 09:54 Heparin Infusion - IVPB 1,750 units/hr TITR [facility] 35 mls/hr Protocol Administration 1,000 UNITS/HR Methylnaltrexone [place] 6 mg 07/27/17 13:28 Relistor - SQ DAILY PRN constipation Metoprolol Succinate 25 mg 07/27/17 10:00 08/01/17 09:59 Toprol Xl - PO 25 mg DAILY [facility] Administration Midodrine 5 mg 07/27/17 10:00 08/01/17 10:00 Proamatine - PO 5 mg TID-MID [facility] Administration Morphine Sulfate 15 mg 07/27/17 14:40 08/01/17 04:01 Msir - PO 15 mg Q6H PRN Administration MODERATE PAIN Nystatin 1 applic 07/27/17 16:30 08/01/17 10:01 Mycostatin Cream - TP 1 applic BID [facility] Administration Pantoprazole Sodium 40 mg 07/28/17 10:30 08/01/17 09:59 Protonix - PO 40 mg DAILY [facility] Administration Polyethylene Glycol 17 gm 07/28/17 09:53 07/31/17 03:17 Miralax (For Daily Use) - PO 17 gm DAILY PRN Administration CONSTIPATION Prednisone 5 mg 07/27/17 10:00 08/01/17 09:59 Deltasone - PO 5 mg DAILY [facility] Administration Laboratory Results - last 24 hr 07/31/17 07/31/17 07/31/17 15:00 15:00 15:00 WBC 10.1 H RBC 2.29 L Hgb 7.2 L D Hct 21.7 L MCV 94.9 MCH 31.4 MCHC 33.0 RDW 18.4 H Plt Count 320 MPV 7.5 PT with INR Cancelled 23.50 H INR Cancelled 2.08 H PTT (Actin FS) 39.5 H Sodium Potassium Chloride Carbon Dioxide Anion Gap BUN Creatinine Random Glucose Calcium Blood Type Antibody Screen Crossmatch 07/31/17 07/31/17 07/31/17 15:00 15:00 21:50 WBC RBC Hgb Hct MCV MCH MCHC RDW Plt Count MPV PT with INR INR PTT (Actin FS) 59.3 H D Sodium 135 L Potassium 4.4 Chloride 96 L Carbon Dioxide 28 Anion Gap 11 BUN 29 H D Creatinine 4.7 H D Random Glucose 110 H D Calcium 7.9 L Blood Type O POSITIVE Antibody Screen Negative Crossmatch See Detail 08/01/17 08/01/17 08/01/17 05:05 05:05 05:05 WBC 11.1 H RBC 2.59 L Hgb 7.8 L Hct 23.5 L MCV 90.8 MCH 30.1 MCHC 33.1 RDW 23.0 H D Plt Count 302 MPV 7.4 L PT with INR 23.10 H INR 2.04 H PTT (Actin FS) 40.4 H D Sodium Potassium Chloride Carbon Dioxide Anion Gap BUN Creatinine Random Glucose Calcium Blood Type Antibody Screen Crossmatch S1 S2 Irregular Lungs decreased Systolic click Left hip examined -- chayo in place oozing noted PLAN spoke with transfer center again today - they are waiting for isolation bed needs PRBC On Heparin drip continue with same meds dry dressing Problem List - Problems (1) A-fib Code(s): I48.91 - UNSPECIFIED ATRIAL FIBRILLATION Qualifiers: Atrial fibrillation type: paroxysmal Qualified Code(s): I48.0 - Paroxysmal atrial fibrillation (2) Anemia Code(s): D64.9 - ANEMIA, UNSPECIFIED Qualifiers: Anemia type: unspecified type Qualified Code(s): D64.9 - Anemia, unspecified (3) End stage kidney disease Code(s): N18.6 - END STAGE RENAL DISEASE (4) Heart valve replaced Code(s): Z95.2 - PRESENCE OF PROSTHETIC HEART VALVE (5) Hematoma of hip Code(s): S70.00XA - CONTUSION OF UNSPECIFIED HIP, INITIAL ENCOUNTER Qualifiers: Encounter type: initial encounter Laterality: left Qualified Code(s): S70.02XA - Contusion of left hip, initial encounter (6) History of fracture of left hip Code(s): Z87.81 - PERSONAL HISTORY OF (HEALED) TRAUMATIC FRACTURE (7) Hyperparathyroidism Code(s): E21.3 - HYPERPARATHYROIDISM, UNSPECIFIED (8) Hyperparathyroidism due to ESRD on dialysis Code(s): E21.3 - HYPERPARATHYROIDISM, UNSPECIFIED; N18.6 - END STAGE RENAL DISEASE; Z99.2 - DEPENDENCE ON RENAL DIALYSIS (9) Pathological fracture due to secondary osteoporosis Code(s): M80.80XA - OTH OSTEOPOR W CURRENT PATH FRACTURE, UNSP SITE, INIT (10) Renal transplant, status post Code(s): Z94.0 - KIDNEY TRANSPLANT STATUS
--- NOTE | 2017-08-01 12:25 | PN ---
Progress Note, Physician History of Present Illness: Pt seen and examined at bedside. He is awake and alert. He denies shortness of breath. - Current Medication List Current Medications: Active Medications Alprazolam (Xanax -) 0.5 mg PO Q8H PRN PRN Reason: ANXIETY Last Admin: 08/01/17 03:34 Dose: 0.5 mg Amiodarone HCl (Cordarone -) 200 mg PO DAILY [facility] Last Admin: 08/01/17 09:59 Dose: 200 mg Bisacodyl (Dulcolax Suppository -) 10 mg RC DAILY PRN PRN Reason: CONSTIPATION Last Admin: 07/31/17 23:26 Dose: 10 mg Bupropion HCl (Wellbutrin Xl -) 300 mg PO DAILY [facility] Last Admin: 08/01/17 10:00 Dose: 300 mg Calcium Acetate (Phoslo -) 667 mg PO TIDCM [facility] Last Admin: 08/01/17 08:05 Dose: 667 mg Docusate Sodium (Colace -) 100 mg PO DAILY [facility] Last Admin: 08/01/17 09:59 Dose: 100 mg Ergocalciferol (Drisdol -) 50,000 unit PO Th@1000 [facility] Last Admin: 08/01/17 10:00 Dose: 50,000 unit Gabapentin (Neurontin Oral Liquid -) 125 mg PO TID [facility] Last Admin: 08/01/17 06:18 Dose: Not Given Heparin Sodium (Porcine) (Heparin -) 1,000 unit IVPUSH PRN PRN PRN Reason: Heparin Last Admin: 08/01/17 09:58 Dose: 1,000 unit Heparin Sodium (Porcine) (Heparin -) 5,000 unit IVPUSH PRN PRN PRN Reason: Heparin Last Admin: 07/31/17 18:59 Dose: 5,000 unit Heparin Sodium/Dextrose (Heparin Infusion -) 25,000 units in 500 mls @ 20 mls/ hr IVPB TITR DEEPA; 1,000 UNITS/HR PRN Reason: Protocol Last Admin: 08/01/17 09:54 Dose: 1,750 units/hr, 35 mls/hr Methylnaltrexone [place] (Relistor -) 6 mg SQ DAILY PRN PRN Reason: constipation Metoprolol Succinate (Toprol Xl -) 25 mg PO DAILY [facility] Last Admin: 11/30/17 09:59 Dose: 25 mg Midodrine (Proamatine -) 5 mg PO TID-MID [facility] Last Admin: 08/01/17 10:00 Dose: 5 mg Morphine Sulfate (Msir -) 15 mg PO Q6H PRN PRN Reason: MODERATE PAIN Last Admin: 08/01/17 04:01 Dose: 15 mg Nystatin (Mycostatin Cream -) 1 applic TP BID [facility] Last Admin: 08/01/17 10:01 Dose: 1 applic Pantoprazole Sodium (Protonix -) 40 mg PO DAILY [facility] Last Admin: 08/01/17 09:59 Dose: 40 mg Polyethylene Glycol (Miralax (For Daily Use) -) 17 gm PO DAILY PRN PRN Reason: CONSTIPATION Last Admin: 07/31/17 03:17 Dose: 17 gm Prednisone (Deltasone -) 5 mg PO DAILY [facility] Last Admin: 08/01/17 09:59 Dose: 5 mg - Objective Vital Signs: Vital Signs Temperature 98.4 F 08/01/17 08:00 Pulse Rate 78 08/01/17 08:00 Respiratory Rate 16 08/01/17 09:00 Blood Pressure 108/60 08/01/17 08:00 O2 Sat by Pulse Oximetry (%) 100 08/01/17 09:00 Constitutional: Yes: Calm Eyes: Yes: Conjunctiva Clear HENT: Yes: Atraumatic Neck: Yes: Supple Cardiovascular: Yes: S1, S2 Respiratory: Yes: CTA Bilaterally Gastrointestinal: Yes: Soft Genitourinary: Yes: Incontinence Musculoskeletal: Yes: Other (hip pain) Edema: Yes Edema: LLE: 1+, RLE: 1+ Neurological: Yes: Oriented Psychiatric: Yes: Oriented Labs: CBC, BMP 08/01/17 05:05 07/31/17 15:00 INR, PTT INR 2.04 (0.82-1.09) H 08/01/17 05:05 Problem List - Problems (1) A-fib Code(s): I48.91 - UNSPECIFIED ATRIAL FIBRILLATION Qualifiers: Atrial fibrillation type: paroxysmal Qualified Code(s): I48.0 - Paroxysmal atrial fibrillation (2) Anemia Code(s): D64.9 - ANEMIA, UNSPECIFIED Qualifiers: Anemia type: unspecified type Qualified Code(s): D64.9 - Anemia, unspecified (3) End stage kidney disease Code(s): N18.6 - END STAGE RENAL DISEASE (4) Heart valve replaced Code(s): Z95.2 - PRESENCE OF PROSTHETIC HEART VALVE (5) Renal transplant, status post Code(s): Z94.0 - KIDNEY TRANSPLANT STATUS Assessment/Plan Current Medications Generic Name Dose Route Start Last Admin Trade Name Freq PRN Reason Stop Dose Admin Alprazolam 0.5 mg 07/30/17 10:10 08/01/17 03:34 Xanax - PO 0.5 mg Q8H PRN Administration ANXIETY Amiodarone HCl 200 mg 07/27/17 10:00 08/01/17 09:59 Cordarone - PO 200 mg DAILY [facility] Administration Bisacodyl 10 mg 07/28/17 16:01 07/31/17 23:26 Dulcolax Suppository - RC 10 mg DAILY PRN Administration CONSTIPATION Bupropion HCl 300 mg 07/27/17 10:00 08/01/17 10:00 Wellbutrin Xl - PO 300 mg DAILY [facility] Administration Calcium Acetate 667 mg 07/30/17 08:00 08/01/17 08:05 Phoslo - PO 667 mg TIDCM [facility] Administration Docusate Sodium 100 mg 07/27/17 10:00 08/01/17 09:59 Colace - PO 100 mg DAILY [facility] Administration Ergocalciferol 50,000 unit 08/01/17 10:00 08/01/17 10:00 Drisdol - PO 50,000 unit Th@1000 [facility] Administration Gabapentin 125 mg 07/26/17 22:00 08/01/17 06:18 Neurontin Oral Liquid - PO Not Given TID [facility] Heparin Sodium (Porcine) 1,000 unit 07/28/17 18:25 08/01/17 09:58 Heparin - IVPUSH 1,000 unit PRN PRN Administration Heparin Heparin Sodium (Porcine) 5,000 unit 07/28/17 18:25 07/31/17 18:59 Heparin - IVPUSH 5,000 unit PRN PRN Administration Heparin Heparin Sodium/Dextrose 25,000 units in 500 mls @ 20 mls/hr 07/28/17 18:30 09:54 Heparin Infusion - IVPB 1,750 units/hr TITR DEEPA 35 mls/hr Protocol Administration 1,000 UNITS/HR Methylnaltrexone [place] 6 mg 07/27/17 13:28 Relistor - SQ DAILY PRN constipation Metoprolol Succinate 25 mg 07/27/17 10:00 08/01/17 09:59 Toprol Xl - PO 25 mg DAILY [facility] Administration Midodrine 5 mg 07/27/17 10:00 08/01/17 10:00 Proamatine - PO 5 mg TID-MID [facility] Administration Morphine Sulfate 15 mg 07/27/17 14:40 08/01/17 04:01 Msir - PO 15 mg Q6H PRN Administration MODERATE PAIN Nystatin 1 applic 07/27/17 16:30 08/01/17 10:01 Mycostatin Cream - TP 1 applic BID [facility] Administration Pantoprazole Sodium 40 mg 07/28/17 10:30 08/01/17 09:59 Protonix - PO 40 mg DAILY [facility] Administration Polyethylene Glycol 17 gm 07/28/17 09:53 07/31/17 03:17 Miralax (For Daily Use) - PO 17 gm DAILY PRN Administration CONSTIPATION Prednisone 5 mg 07/27/17 10:00 08/01/17 09:59 Deltasone - PO 5 mg DAILY [facility] Administration Impression 1. ESRD 2. anemia 3. a-fib 4. valvular heart disease 5. s/p hip replacement 6. hx kidney transplant 7. hx renal cell carcinoma 8. pleural effusion 9. left gluteus hematoma Plan - pt tolerated HD yesterday - HD in am - pt is pending transfer to [facility] for anemia - ortho follow up - monitor inr Dr Potts
[2017-08-02] MEDS: HEPARIN NA (PORCINE) 5,000 UNITS/ML 1ML VIAL IVPUSH PRN ×2 (01:50→08:09)
[2017-08-02] MEDS ORDERED: PT OWN MED DRAWER 7, Y5N ONE ×2 (02:15→12:19)
[2017-08-02] MEDS: GABAPENTIN 250 MG/5 ML ORAL SOLUTION, 470 ML BOTTLE PO SCH ×3 (05:59→21:48)
[2017-08-02 06:59] LABS: MCH 30.1 pg (25.7-33.7); MEAN CELL VOLUME 91.1 fl (80-96); MEAN PLT VOLUME 7.6 fl (7.5-11.1); PLATELET COUNT 292 K/MM3 (134-434); RDW 21.1 % (11.9-15.9); WHITE BLOOD COUNT 11.7 K/mm3 (4.0-10.0)
[2017-08-02] MEDS: CALCIUM ACETATE 667 MG CAPSULE (FP) PO SCH ×3 (08:03→17:26)
[2017-08-02] MEDS: ALPRAZolam 0.25 MG TABLET PO PRN ×2 (08:04→23:06)
[2017-08-02] MEDS: morphine SULFATE IMMEDIATE RELEASE 30 MG TAB PO PRN ×2 (08:04→14:21)
[2017-08-02] MEDS: HEPARIN INFUSION - 25,000 UNITS/500 ML INFUS.BAG IVPB SCH ×2 (08:08→16:04)
--- NOTE | 2017-08-02 10:02 | PN ---
Progress Note, Physician History of Present Illness: Remains in afib. Left thigh discomfort, awaiting isolation bed at [facility], [place]. - Current Medication List Current Medications: Active Medications Alprazolam (Xanax -) 0.5 mg PO Q8H PRN PRN Reason: ANXIETY Last Admin: 08/02/17 08:04 Dose: 0.5 mg Amiodarone HCl (Cordarone -) 200 mg PO DAILY [facility] Last Admin: 08/01/17 09:59 Dose: 200 mg Bisacodyl (Dulcolax Suppository -) 10 mg RC DAILY PRN PRN Reason: CONSTIPATION Last Admin: 07/31/17 23:26 Dose: 10 mg Bupropion HCl (Wellbutrin Xl -) 300 mg PO DAILY [facility] Last Admin: 08/01/17 10:00 Dose: 300 mg Calcium Acetate (Phoslo -) 667 mg PO TIDCM [facility] Last Admin: 08/02/17 08:03 Dose: 667 mg Docusate Sodium (Colace -) 100 mg PO DAILY [facility] Last Admin: 08/01/17 09:59 Dose: 100 mg Epoetin [place] (Epogen -) 10,000 units IVPUSH ONCE ONE Stop: 08/02/17 12:26 Ergocalciferol (Drisdol -) 50,000 unit PO Th@1000 [facility] Last Admin: 08/01/17 10:00 Dose: 50,000 unit Gabapentin (Neurontin Oral Liquid -) 125 mg PO TID [facility] Last Admin: 08/02/17 05:59 Dose: Not Given Heparin Sodium (Porcine) (Heparin -) 1,000 unit IVPUSH PRN PRN PRN Reason: Heparin Last Admin: 08/02/17 08:09 Dose: 1,000 unit Heparin Sodium (Porcine) (Heparin -) 5,000 unit IVPUSH PRN PRN PRN Reason: Heparin Last Admin: 07/31/17 18:59 Dose: 5,000 unit Heparin Sodium/Dextrose (Heparin Infusion -) 25,000 units in 500 mls @ 20 mls/ hr IVPB TITR DEE[facility]; 1,000 UNITS/HR PRN Reason: Protocol Last Admin: 08/02/17 08:08 Dose: 2,050 units/hr, 41 mls/hr Methylnaltrexone [place] (Relistor -) 6 mg SQ DAILY PRN PRN Reason: constipation Metoprolol Succinate (Toprol Xl -) 25 mg PO DAILY [facility] Last Admin: 08/01/17 09:59 Dose: 25 mg Midodrine (Proamatine -) 5 mg PO TID-MID [facility] Last Admin: 08/01/17 17:58 Dose: 5 mg Morphine Sulfate (Msir -) 15 mg PO Q6H PRN PRN Reason: MODERATE PAIN Last Admin: 08/02/17 08:04 Dose: 15 mg Nystatin (Mycostatin Cream -) 1 applic TP BID [facility] Last Admin: 08/01/17 23:19 Dose: Not Given Pantoprazole Sodium (Protonix -) 40 mg PO DAILY [facility] Last Admin: 08/01/17 09:59 Dose: 40 mg Polyethylene Glycol (Miralax (For Daily Use) -) 17 gm PO DAILY PRN PRN Reason: CONSTIPATION Last Admin: 07/31/17 03:17 Dose: 17 gm Prednisone (Deltasone -) 5 mg PO DAILY [facility] Last Admin: 08/01/17 09:59 Dose: 5 mg - Objective Vital Signs: Vital Signs Temperature 98.6 F 08/02/17 09:00 Pulse Rate 82 08/02/17 09:00 Respiratory Rate 18 08/02/17 09:00 Blood Pressure 110/64 08/02/17 09:00 O2 Sat by Pulse Oximetry (%) 100 08/01/17 20:12 Constitutional: Yes: No Distress, Calm Neck: Yes: Supple Cardiovascular: Yes: Regular Rate and Rhythm, Murmur (2/6 SM), Other (crisp mechanical valve sounds) Respiratory: Yes: Regular, Diminished Edema: No Labs: CBC, BMP 08/02/17 06:25 07/31/17 15:00 INR, PTT INR 2.04 (0.82-1.09) H 08/01/17 05:05 - ....Imaging EKG: Report Reviewed (Tele: Afib) Problem List - Problems (1) A-fib Code(s): I48.91 - UNSPECIFIED ATRIAL FIBRILLATION Qualifiers: Atrial fibrillation type: paroxysmal Qualified Code(s): I48.0 - Paroxysmal atrial fibrillation (2) ESRD on hemodialysis Code(s): N18.6 - END STAGE RENAL DISEASE; Z99.2 - DEPENDENCE ON RENAL DIALYSIS (3) H/O mitral valve replacement with mechanical valve Code(s): Z95.2 - PRESENCE OF PROSTHETIC HEART VALVE (5) Heart valve replaced Code(s): Z95.2 - PRESENCE OF PROSTHETIC HEART VALVE (6) Hematoma of hip Code(s): S70.00XA - CONTUSION OF UNSPECIFIED HIP, INITIAL ENCOUNTER Qualifiers: Encounter type: initial encounter Laterality: left Qualified Code(s): S70.02XA - Contusion of left hip, initial encounter (7) History of fracture of left hip Code(s): Z87.81 - PERSONAL HISTORY OF (HEALED) TRAUMATIC FRACTURE (8) Hx of aortic valve replacement, mechanical Code(s): Z95.2 - PRESENCE OF PROSTHETIC HEART VALVE (9) Hyperparathyroidism due to ESRD on dialysis Code(s): E21.3 - HYPERPARATHYROIDISM, UNSPECIFIED; N18.6 - END STAGE RENAL DISEASE; Z99.2 - DEPENDENCE ON RENAL DIALYSIS (10) Acute posthemorrhagic anemia Code(s): D62 - ACUTE POSTHEMORRHAGIC ANEMIA (11) Renal transplant, status post Code(s): Z94.0 - KIDNEY TRANSPLANT STATUS Assessment/Plan 07/29/2017 Echo: Low normal LV fxn, mild decreased RV fxn, severe TROY, mech MV and AV, no MR, AR, severe TR 1. Post bilateral hip surgeries - recent now with left gluteal daniel hematoma 2. Anemia - possible blood loss due to above, post transfusion 3. ESRD on HD, history of horseshoe kidney and renal transplant 4. AVR - mechanical prosthesis, MVR - mechanical prosthesis and TV repair 5. Atrial fibrillation s/p MAZE 6. Hyperparathyroidism 7. Osteoporosis PLAN: 1. Monitor CBC and transfuse PRBC as needed 2. Orthopedic, Vascular and general surgery input noted 3. Continue Metoprolol 25 qd, Amio 200 qd 4. Coumadin has been held. Continue Heparin drip gtt for PTT 50-70 5. Await transferring patient to [facility] for further management of post-op hematoma
--- NOTE | 2017-08-02 10:54 | PN ---
Progress Note, Physician Chief Complaint: c/o anxiety no distress has pain in left hip - Current Medication List Current Medications: Active Medications Alprazolam (Xanax -) 0.5 mg PO Q8H PRN PRN Reason: ANXIETY Last Admin: 08/02/17 08:04 Dose: 0.5 mg Amiodarone HCl (Cordarone -) 200 mg PO DAILY [facility] Last Admin: 08/01/17 09:59 Dose: 200 mg Bisacodyl (Dulcolax Suppository -) 10 mg RC DAILY PRN PRN Reason: CONSTIPATION Last Admin: 07/31/17 23:26 Dose: 10 mg Bupropion HCl (Wellbutrin Xl -) 300 mg PO DAILY [facility] Last Admin: 08/01/17 10:00 Dose: 300 mg Calcium Acetate (Phoslo -) 667 mg PO TIDCM [facility] Last Admin: 08/02/17 08:03 Dose: 667 mg Docusate Sodium (Colace -) 100 mg PO DAILY [facility] Last Admin: 08/01/17 09:59 Dose: 100 mg Epoetin [place] (Epogen -) 10,000 units IVPUSH ONCE ONE Stop: 08/02/17 12:26 Ergocalciferol (Drisdol -) 50,000 unit PO Th@1000 [facility] Last Admin: 08/01/17 10:00 Dose: 50,000 unit Gabapentin (Neurontin Oral Liquid -) 125 mg PO TID [facility] Last Admin: 08/02/17 05:59 Dose: Not Given Heparin Sodium (Porcine) (Heparin -) 1,000 unit IVPUSH PRN PRN PRN Reason: Heparin Last Admin: 08/02/17 08:09 Dose: 1,000 unit Heparin Sodium (Porcine) (Heparin -) 5,000 unit IVPUSH PRN PRN PRN Reason: Heparin Last Admin: 07/31/17 18:59 Dose: 5,000 unit Heparin Sodium/Dextrose (Heparin Infusion -) 25,000 units in 500 mls @ 20 mls/ hr IVPB TITR [facility]; 1,000 UNITS/HR PRN Reason: Protocol Last Admin: 08/02/17 08:08 Dose: 2,050 units/hr, 41 mls/hr Methylnaltrexone [place] (Relistor -) 6 mg SQ DAILY PRN PRN Reason: constipation Metoprolol Succinate (Toprol Xl -) 25 mg PO DAILY [facility] Last Admin: 08/01/17 09:59 Dose: 25 mg Midodrine (Proamatine -) 5 mg PO TID-MID [facility] Last Admin: 08/01/17 17:58 Dose: 5 mg Morphine Sulfate (Msir -) 15 mg PO Q6H PRN PRN Reason: MODERATE PAIN Last Admin: 08/02/17 08:04 Dose: 15 mg Nystatin (Mycostatin Cream -) 1 applic TP BID [facility] Last Admin: 08/01/17 23:19 Dose: Not Given Pantoprazole Sodium (Protonix -) 40 mg PO DAILY [facility] Last Admin: 08/01/17 09:59 Dose: 40 mg Polyethylene Glycol (Miralax (For Daily Use) -) 17 gm PO DAILY PRN PRN Reason: CONSTIPATION Last Admin: 07/31/17 03:17 Dose: 17 gm Prednisone (Deltasone -) 5 mg PO DAILY [facility] Last Admin: 08/01/17 09:59 Dose: 5 mg - Objective Vital Signs: Vital Signs Temperature 98.6 F 08/02/17 09:00 Pulse Rate 82 08/02/17 09:00 Respiratory Rate 18 08/02/17 09:00 Blood Pressure 110/64 08/02/17 09:00 O2 Sat by Pulse Oximetry (%) 100 08/01/17 20:12 Constitutional: Yes: No Distress Cardiovascular: Yes: Pulse Irregular, Murmur Respiratory: Yes: Diminished Gastrointestinal: Yes: Normal Bowel Sounds, Soft, Abdomen, Obese. No: Distention, Tenderness Edema: Yes Labs: CBC, BMP 08/02/17 06:25 07/31/17 15:00 INR, PTT INR 2.04 (0.82-1.09) H 08/01/17 05:05 Problem List - Problems (1) A-fib Code(s): I48.91 - UNSPECIFIED ATRIAL FIBRILLATION Qualifiers: Atrial fibrillation type: paroxysmal Qualified Code(s): I48.0 - Paroxysmal atrial fibrillation (2) Anemia Code(s): D64.9 - ANEMIA, UNSPECIFIED Qualifiers: Anemia type: unspecified type Qualified Code(s): D64.9 - Anemia, unspecified (3) End stage kidney disease Code(s): N18.6 - END STAGE RENAL DISEASE (4) Heart valve replaced Code(s): Z95.2 - PRESENCE OF PROSTHETIC HEART VALVE (5) Hematoma of hip Code(s): S70.00XA - CONTUSION OF UNSPECIFIED HIP, INITIAL ENCOUNTER Qualifiers: Encounter type: initial encounter Laterality: left Qualified Code(s): S70.02XA - Contusion of left hip, initial encounter (6) History of fracture of left hip Code(s): Z87.81 - PERSONAL HISTORY OF (HEALED) TRAUMATIC FRACTURE (7) Hyperparathyroidism Code(s): E21.3 - HYPERPARATHYROIDISM, UNSPECIFIED (8) Hyperparathyroidism due to ESRD on dialysis Code(s): E21.3 - HYPERPARATHYROIDISM, UNSPECIFIED; N18.6 - END STAGE RENAL DISEASE; Z99.2 - DEPENDENCE ON RENAL DIALYSIS (9) Pathological fracture due to secondary osteoporosis Code(s): M80.80XA - OTH OSTEOPOR W CURRENT PATH FRACTURE, UNSP SITE, INIT (10) Renal transplant, status post Code(s): Z94.0 - KIDNEY TRANSPLANT STATUS Assessment/Plan Assessment/Plan ANEMIA - s/p 3 units of PRBC -? acute on chronic blood loss -left gluteal daniel hematoma on pelvic CT -- CTA -- NO EXTRAVASATION -coumadin on hold -asa on hold - on heparin drip -- s/p PRBC yesterday -h/h currently stable -monitor cbc - awaiting transfer to [facility] -S/P Multiple mechanical valve replacement -currently Coumadin on hold -INR noted -awaiting bed availability at [facility] afib- rate controlled continue with medications monitor in telemetry Heparin infusion s/p left and right hip fractures s/p recent left hip ORIF 07/12- S/P prince prosthetic fracture- - orthopedic evaluation noted, xrays noted ESRD - S/P HD - -- - dr gonzalez following Osteoporosis secondary hyperparathyroidism DVT PPX- SCD, Heparin drip Venous doppler done in [facility] negative for DVT= LEFT LEG
[2017-08-02] MEDS ORDERED: EPOETIN ALFA 10,000 UNIT/1 ML VIAL IVPUSH ONE (11:00)
[2017-08-02] MEDS: MIDODRINE HCL 5 MG TABLET PO SCH ×3 (14:17→17:27)
[2017-08-02] MEDS: predniSONE 5 MG TABLET (UD) PO SCH (14:23)
[2017-08-02] MEDS: AMIODARONE HCL 200 MG TABLET (FP) PO SCH (14:23)
[2017-08-02] MEDS: METOPROLOL SUCCINATE 25 MG TAB.SR.24H (FP) PO SCH (14:23)
[2017-08-02] MEDS: PANTOPRAZOLE 40 MG TABLET (FP) PO SCH (14:23)
[2017-08-02] MEDS: DOCUSATE SODIUM 100 MG CAPSULE (FP) PO SCH (14:24)
[2017-08-02] MEDS: NYSTATIN 100,000 UNIT/GM TOPICAL CREAM 15 GM TUBE TP SCH ×2 (14:24→23:08)
[2017-08-02] MEDS: POLYETHYLENE GLYCOL 3350 119 GM BTL PO PRN (16:04)
--- NOTE | 2017-08-02 16:47 | PN ---
Progress Note, Physician History of Present Illness: Pt seen and examined at bedside. He tolerated HD. He is agitated that he is not yet transferred to [place]. - Current Medication List Current Medications: Active Medications Alprazolam (Xanax -) 0.5 mg PO Q8H PRN PRN Reason: ANXIETY Last Admin: 08/02/17 08:04 Dose: 0.5 mg Amiodarone HCl (Cordarone -) 200 mg PO DAILY [facility] Last Admin: 08/02/17 14:23 Dose: 200 mg Bisacodyl (Dulcolax Suppository -) 10 mg RC DAILY PRN PRN Reason: CONSTIPATION Last Admin: 07/31/17 23:26 Dose: 10 mg Bupropion HCl (Wellbutrin Xl -) 300 mg PO DAILY [facility] Last Admin: 08/02/17 14:23 Dose: 300 mg Calcium Acetate (Phoslo -) 667 mg PO TIDCM [facility] Last Admin: 08/02/17 14:23 Dose: 667 mg Docusate Sodium (Colace -) 100 mg PO DAILY [facility] Last Admin: 08/02/17 14:24 Dose: 100 mg Ergocalciferol (Drisdol -) 50,000 unit PO Th@1000 [facility] Last Admin: 08/01/17 10:00 Dose: 50,000 unit Gabapentin (Neurontin Oral Liquid -) 125 mg PO TID [facility] Last Admin: 08/02/17 14:22 Dose: Not Given Heparin Sodium (Porcine) (Heparin -) 1,000 unit IVPUSH PRN PRN PRN Reason: Heparin Last Admin: 08/02/17 08:09 Dose: 1,000 unit Heparin Sodium (Porcine) (Heparin -) 5,000 unit IVPUSH PRN PRN PRN Reason: Heparin Last Admin: 07/31/17 18:59 Dose: 5,000 unit Heparin Sodium/Dextrose (Heparin Infusion -) 25,000 units in 500 mls @ 20 mls/ hr IVPB TITR [facility]; 1,000 UNITS/HR PRN Reason: Protocol Last Admin: 08/02/17 16:04 Dose: 2,050 units/hr, 41 mls/hr Methylnaltrexone [place] (Relistor -) 6 mg SQ DAILY PRN PRN Reason: constipation Metoprolol Succinate (Toprol Xl -) 25 mg PO DAILY [facility] Last Admin: 08/02/17 14:23 Dose: 25 mg Midodrine (Proamatine -) 5 mg PO TID-MID [facility] Last Admin: 08/02/17 14:24 Dose: 5 mg Morphine Sulfate (Msir -) 15 mg PO Q6H PRN PRN Reason: MODERATE PAIN Last Admin: 08/02/17 14:21 Dose: 15 mg Nystatin (Mycostatin Cream -) 1 applic TP BID [facility] Last Admin: 08/02/17 14:24 Dose: 1 applic Pantoprazole Sodium (Protonix -) 40 mg PO DAILY [facility] Last Admin: 08/02/17 14:23 Dose: 40 mg Polyethylene Glycol (Miralax (For Daily Use) -) 17 gm PO DAILY PRN PRN Reason: CONSTIPATION Last Admin: 08/02/17 16:04 Dose: 17 gm Prednisone (Deltasone -) 5 mg PO DAILY [facility] Last Admin: 08/02/17 14:23 Dose: 5 mg - Objective Vital Signs: Vital Signs Temperature 98.4 F 08/02/17 14:00 Pulse Rate 81 08/02/17 14:00 Respiratory Rate 18 08/02/17 14:00 Blood Pressure 112/65 08/02/17 14:00 O2 Sat by Pulse Oximetry (%) 100 08/01/17 20:12 Constitutional: Yes: Anxious Eyes: Yes: Conjunctiva Clear HENT: Yes: Atraumatic Neck: Yes: Supple Cardiovascular: Yes: S1, S2 Respiratory: Yes: CTA Bilaterally Gastrointestinal: Yes: Soft Genitourinary: Yes: Incontinence Musculoskeletal: Yes: Other (hip pain) Edema: Yes Edema: LLE: 1+, RLE: 1+ Neurological: Yes: Oriented Psychiatric: Yes: Oriented Labs: CBC, BMP 08/02/17 06:25 07/31/17 15:00 INR, PTT INR 2.04 (0.82-1.09) H 08/01/17 05:05 Problem List - Problems (1) A-fib Code(s): I48.91 - UNSPECIFIED ATRIAL FIBRILLATION Qualifiers: Atrial fibrillation type: paroxysmal Qualified Code(s): I48.0 - Paroxysmal atrial fibrillation (2) Anemia Code(s): D64.9 - ANEMIA, UNSPECIFIED Qualifiers: Anemia type: unspecified type Qualified Code(s): D64.9 - Anemia, unspecified (3) End stage kidney disease Code(s): N18.6 - END STAGE RENAL DISEASE (4) Heart valve replaced Code(s): Z95.2 - PRESENCE OF PROSTHETIC HEART VALVE (5) Renal transplant, status post Code(s): Z94.0 - KIDNEY TRANSPLANT STATUS Assessment/Plan Current Medications Generic Name Dose Route Start Last Admin Trade Name Freq PRN Reason Stop Dose Admin Alprazolam 0.5 mg 07/30/17 10:10 08/02/17 08:04 Xanax - PO 0.5 mg Q8H PRN Administration ANXIETY Amiodarone HCl 200 mg 07/27/17 10:00 08/02/17 14:23 Cordarone - PO 200 mg DAILY [facility] Administration Bisacodyl 10 mg 07/28/17 16:01 07/31/17 23:26 Dulcolax Suppository - RC 10 mg DAILY PRN Administration CONSTIPATION Bupropion HCl 300 mg 07/27/17 10:00 08/02/17 14:23 Wellbutrin Xl - PO 300 mg DAILY [facility] Administration Calcium Acetate 667 mg 07/30/17 08:00 08/02/17 14:23 Phoslo - PO 667 mg TIDCM [facility] Administration Docusate Sodium 100 mg 07/27/17 10:00 08/02/17 14:24 Colace - PO 100 mg DAILY [facility] Administration Ergocalciferol 50,000 unit 08/01/17 10:00 08/01/17 10:00 Drisdol - PO 50,000 unit Th@1000 [facility] Administration Gabapentin 125 mg 07/26/17 22:00 08/02/17 14:22 Neurontin Oral Liquid - PO Not Given TID [facility] Heparin Sodium (Porcine) 1,000 unit 07/28/17 18:25 08/02/17 08:09 Heparin - IVPUSH 1,000 unit PRN PRN Administration Heparin Heparin Sodium (Porcine) 5,000 unit 07/28/17 18:25 07/31/17 18:59 Heparin - IVPUSH 5,000 unit PRN PRN Administration Heparin Heparin Sodium/Dextrose 25,000 units in 500 mls @ 20 mls/hr 07/28/17 18:30 16:04 Heparin Infusion - IVPB 2,050 units/hr TITR DEEPA 41 mls/hr Protocol Administration 1,000 UNITS/HR Methylnaltrexone [place] 6 mg 07/27/17 13:28 Relistor - SQ DAILY PRN constipation Metoprolol Succinate 25 mg 07/27/17 10:00 08/02/17 14:23 Toprol Xl - PO 25 mg DAILY [facility] Administration Midodrine 5 mg 07/27/17 10:00 08/02/17 14:24 Proamatine - PO 5 mg TID-MID [facility] Administration Morphine Sulfate 15 mg 07/27/17 14:40 08/02/17 14:21 Msir - PO 15 mg Q6H PRN Administration MODERATE PAIN Nystatin 1 applic 07/27/17 16:30 08/02/17 14:24 Mycostatin Cream - TP 1 applic BID [facility] Administration Pantoprazole Sodium 40 mg 07/28/17 10:30 08/02/17 14:23 Protonix - PO 40 mg DAILY [facility] Administration Polyethylene Glycol 17 gm 07/28/17 09:53 08/02/17 16:04 Miralax (For Daily Use) - PO 17 gm DAILY PRN Administration CONSTIPATION Prednisone 5 mg 07/27/17 10:00 08/02/17 14:23 Deltasone - PO 5 mg DAILY [facility] Administration Impression 1. ESRD 2. anemia 3. a-fib 4. valvular heart disease 5. s/p hip replacement 6. hx kidney transplant 7. hx renal cell carcinoma 8. pleural effusion 9. left gluteus hematoma Plan - pt dialyzed today - next HD on Saturday - monitor hg - pt is pending transfer to [facility] for anemia - ortho follow up - monitor inr Dr Potts
[2017-08-02 23:08] VITALS: BP 97/55; PULSE 81; TEMP 98.7
[2017-08-04 22:16] LABS: SERUM IRON 42; TOTAL IRON BINDING CAPACITY 358; UIBC 316
== END 2017-08-03 00:30 | disposition short-term general hospital (02) | DRG 919 ==
LOC: JER 10:39 → JERBED 13:20 → J7W 20:54 → J4W 07-27 15:31
PROVIDERS: ADMIT Internal Medicine; ATTEND Internal Medicine
PROC: 30233N1 Transfusion of Nonautologous Red Blood Cells into Peripheral Vein, Percutaneous Approach (ICD-10-PCS; principal; 2017-07-26)
PROC: 5A1D90Z Performance of Urinary Filtration, Continuous, Greater than 18 hours Per Day (ICD-10-PCS; 2017-08-02)
DX: L76.32 Postprocedural hematoma of skin and subcutaneous tissue following other procedure (principal); N18.6 End stage renal disease; D62 Acute posthemorrhagic anemia; Z94.0 Kidney transplant status; J98.11 Atelectasis; I12.0 Hypertensive chronic kidney disease with stage 5 chronic kidney disease or end stage renal disease; S70.02XA Contusion of left hip, initial encounter; I25.10 Atherosclerotic heart disease of native coronary artery without angina pectoris; I48.0 Paroxysmal atrial fibrillation; Z95.2 Presence of prosthetic heart valve; M81.0 Age-related osteoporosis without current pathological fracture; Y83.9 Surgical procedure, unspecified as the cause of abnormal reaction of the patient, or of later complication, without mention of misadventure at the time of the procedure; E21.3 Hyperparathyroidism, unspecified; X58.XXXA Exposure to other specified factors, initial encounter; Y93.9 Activity, unspecified; Y92.89 Other specified places as the place of occurrence of the external cause; Y99.9 Unspecified external cause status
CPT/HCPCS: 36415; 36430; 71010-TC; 72170-TC; 72191-TC; 72192-TC; 73502-TC-LT; 73523-TC; 73552-TC-LT; 73552-TC-RT; 73701-TC-RT; 74176-TC; 80048; 80053; 82565; 82607; 82728; 82746; 83540; 83550; 83735; 84100; 84466; 84520; 85025; 85027; 85610; 85730; 86704; 86706; 86708; 86803; 86850; 86900; 86901; 86922; 87081; 87340; 93005; 93010; 93306-TC; 99283-25; J0885; J1644; P9038; P9058